=== PATIENT | female | born 1995 | race Asian ===

== ENCOUNTER 2016-11-29 04:41 | Emergency (ER) | payer OTHER ==
[~2016-11-29] VITALS: Ht 160 cm; Wt 51.3 kg
[~2016-11-29 04:41] MED LIST: [UNRECOGNIZED DRUG - CODE] EXT
[2016-11-29 04:46] VITALS: TEMP 36.8; Ht 160 cm; Wt 51.3 kg
[2016-11-29] MEDS ORDERED: ONDANSETRON INJ 2 MG/ML 2 ML VIAL IV STA (04:54)
[2016-11-29] MEDS ORDERED: MoRPHine SULFATE 4 MG/ML 1 ML CARP\\VIAL IV STA (04:54)
[2016-11-29] MEDS ORDERED: SODIUM CHLORIDE 0.9% 1000ML 1,000 ML IV STA ×2 (04:54)
[2016-11-29 05:15] LABS: BASO % 0.1 %; BASO ABS # 0.01 K/uL (0-0.2); COMPLETE YES; EOS % 0.4 %; HEMATOCRIT 40.5 % (37-47); IG% 0.1 %; LYMPH % 13.7 %; LYMPH ABS # 1.31 K/uL (1.2-3.4); MEAN CELL VOLUME 84.7 fL (80-100); MEAN CORPUSCULAR HEMOGLOBIN 29.3 pg (25-34); MEAN CORPUSCULAR HGB CONC 34.6 g/dl (32-36); MEAN PLATELET VOLUME 10.3 fL (7.4-10.4); MONO % 4.1 %; NEUT % 81.6 %; PLATELET COUNT 342 K/uL (130-400); RED BLOOD COUNT 4.78 M/uL (4.2-5.4); WHITE BLOOD COUNT 9.56 K/uL (4.8-10.8)
[2016-11-29 05:34] LABS: BUN/CREATININE RATIO 16.7 (10-20); CALCIUM 9.1 mg/dl (8.5-10.1); CREATININE 0.89 mg/dl (0.60-1.20); POTASSIUM 3.5 mmol/L (3.5-5.1)
[2016-11-29 05:35] LABS: PREG INTERNAL NEGATIVE QC NEG CLEAR BACKGROUND; PREG INTERNAL POSITIVE QC POS CONTROL LINE
[2016-11-29 05:38] LABS: URINE APPEARANCE CLEAR (CLEAR); URINE COLOR DK YELLOW; URINE EPITHELIAL CELL AUTO >30 /lpf (0-5); URINE NITRITE POS (NEG); URINE PH 5.5 (4.5-7.5); URINE SPECIFIC GRAVITY 1.036 (1.000-1.030); UROBILINOGEN NEG (NEG); ZZUR CULT IF INDIC CLEAN CATCH YES
[2016-11-29 05:41] LABS: MANUAL MICROSCOPIC REQUIRED? NO; REVIEW REQ? NO
[2016-11-29 05:43] LABS: URINE BILIRUBIN NEG (NEG)
[2016-11-29] MEDS ORDERED: NITR-5 PO ×2 (06:13→21:59)
[2016-11-29] MEDS ORDERED: NITROFURANTOIN MONOHYDRATE 100 MG CAP PO ONE (06:15)
--- NOTE | 2016-11-29 06:56 | EMERGENCY ROOM VISIT NOTE ---
History First contact with patient: 04:48 Chief Complaint: NAUSEA Stated Complaint: NAUSEA,STOMACH ACHE Nursing Triage Summary: c/o abd pain and n/v. seen at [facility] wednesday dx with pid.went back on wednesday and dx with constipation. History of Present Illness The patient is a 20 year old female who presents to the Emergency Room with complaints of nausea, vomiting and left lower quadrant superpubic pain for the past 5 days that is steadily getting worse with urinary frequency and urgency. Patient had a pelvic exam by health services on Wednesday and was treated for possible PID which was negative for GC and chlamydia. Patient followed up on Wednesday and was told she is constipated. Patient states the pain has gotten steadily worse. She describes the pain as pain as aching, ranging in severity 7 out of 10. Movement makes it worse and nothing makes it better. Patient is in a monogamous relationship and does not feel at risk for STI's. Patient denies chest pain, dyspnea, fever, chills, dysuria, vaginal itching/ discharge, dyspareunia, back pain. Last menstrual cycle 2 weeks ago. Review of Systems See HPI for pertinent positives & negatives. A total of 10 systems reviewed and were otherwise negative. Past Medical/Surgical History Medical Problems: (1) No pertinent past medical history Family History Hypertension Social History Smoking Status: Never Smoker Smokeless Tobacco Use: No Alcohol Use: none Drug Use: none Marital Status: in relationship Occupation Status: [employer] student Current/Historical Medications Scheduled Nitrofurantoin Monohyd Macrocr (Macrobid), 100 MG PO BID Allergies Coded Allergies: No Known Allergies (Unverified , 12/01/15) Physical Exam Vital Signs Date Time Temp Pulse Resp B/P Pulse Ox O2 Delivery O2 Flow Rate FiO2 11/29/16 06:35 77 18 104/63 98 Room Air 11/29/16 05:00 Room Air 11/29/16 04:46 36.8 107 18 110/65 98 Room Air Physical Exam VITALS: Vitals are noted on the nurse's note and reviewed by myself. Vital signs stable. GENERAL: Pleasant female in obvious pain, in no acute distress, nondiaphoretic, well-developed well-nourished. SKIN: The skin was without rashes, erythema, edema, or bruising. There is no tenting of the skin. Capillary reflex less than 2 seconds. HEAD: Normocephalic atraumatic. EARS: External auditory canals clear, tympanic membranes pearly de santiago without erythema or effusion bilaterally. EYES: Pupils equal round and reactive to light and accommodation. Conjunctivae without injection, sclerae without icterus. Extraocular movements intact. NOSE: Patent, turbinates without inflammation or discharge. MOUTH: Mucous membranes moist. Pharynx without erythema or exudate. Uvula midline. Airway patent. Tongue does not deviate. NECK: Supple without nuchal rigidity. No lymphadenopathy. No thyromegaly. Cervical spine is nontender. No JVD. HEART: Regular rate and rhythm without murmurs gallops or rubs. LUNGS: Clear to auscultation bilaterally without wheezes, rales or rhonchi. No dullness to percussion. No retractions or accessory muscle use. ABDOMEN: Positive bowel sounds x 4. Normal tympanic percussion. Soft, tender to palpation left lower superpubic area, no CVA tenderness without masses or organomegaly. Sharif sign negative. No guarding or rebound tenderness. MUSCULOSKELETAL: No muscle atrophy, erythema, or edema noted. NEURO: Patient was alert and oriented to person place and time. Normal sensation to light and sharp touch. No focal neurological deficits. Medical Decision & Procedures Laboratory Results 11/29/16 05:03 Red Blood Count 4.78, Mean Corpuscular Volume 84.7, Mean Corpuscular Hemoglobin 29.3, Mean Corpuscular Hemoglobin Concent 34.6, Mean Platelet Volume 10.3, Neutrophils (%) (Auto) 81.6, Lymphocytes (%) (Auto) 13.7, Monocytes (%) (Auto) 4.1, Eosinophils (%) (Auto) 0.4, Basophils (%) (Auto) 0.1, Neutrophils # (Auto) 7.80, Lymphocytes # (Auto) 1.31, Monocytes # (Auto) 0.39, Eosinophils # (Auto) 0.04, Basophils # (Auto) 0.01 11/29/16 05:03 Test 11/29/16 05:03 11/29/16 05:25 White Blood Count 9.56 K/uL (4.8-10.8) Red Blood Count 4.78 M/uL (4.2-5.4) Hemoglobin 14.0 g/dL (12.0-16.0) Hematocrit 40.5 % (37-47) Mean Corpuscular Volume 84.7 fL (80-100) Mean Corpuscular Hemoglobin 29.3 pg (25-34) Mean Corpuscular Hemoglobin Concent 34.6 g/dl (32-36) Platelet Count 342 K/uL (130-400) Mean Platelet Volume 10.3 fL (7.4-10.4) Neutrophils (%) (Auto) 81.6 % Lymphocytes (%) (Auto) 13.7 % Monocytes (%) (Auto) 4.1 % Eosinophils (%) (Auto) 0.4 % Basophils (%) (Auto) 0.1 % Neutrophils # (Auto) 7.80 K/uL (1.4-6.5) Lymphocytes # (Auto) 1.31 K/uL (1.2-3.4) Monocytes # (Auto) 0.39 K/uL (0.11-0.59) Eosinophils # (Auto) 0.04 K/uL (0-0.5) Basophils # (Auto) 0.01 K/uL (0-0.2) RDW Standard Deviation 37.9 fL (36.4-46.3) RDW Coefficient of Variation 12.3 % (11.5-14.5) Immature Granulocyte % (Auto) 0.1 % Immature Granulocyte # (Auto) 0.01 K/uL (0.00-0.02) Nucleated RBC Absolute Count (auto) 0.02 K/uL (0-0) Nucleated Red Blood Cells % 0.2 % Anion Gap 12.0 mmol/L (3-11) Est Creatinine Clear Calc Drug Dose 81.0 ml/min Estimated GFR () 107.4 Estimated GFR (Non- 92.6 BUN/Creatinine Ratio 16.7 (10-20) Calcium Level 9.1 mg/dl (8.5-10.1) Total Bilirubin 0.4 mg/dl (0.2-1) Direct Bilirubin 0.1 mg/dl (0-0.2) Aspartate Amino Transf (AST/SGOT) 15 U/L (15-37) Alanine Aminotransferase (ALT/SGPT) 24 U/L (12-78) Alkaline Phosphatase 85 U/L (45-117) Total Protein 8.1 gm/dl (6.4-8.2) Albumin 4.1 gm/dl (3.4-5.0) Lipase 66 U/L (73-393) Human Chorionic Gonadotropin, Qual POS (NEG) Human Chorionic Gonadotropin, Quant 187 mIU/mL Urine Color DK YELLOW Urine Appearance CLEAR (CLEAR) Urine pH 5.5 (4.5-7.5) Urine Specific [place] 1.036 (1.000-1.030) Urine Protein TRACE (NEG) Urine Glucose (UA) NEG (NEG) Urine Ketones 3+ (NEG) Urine Occult Blood NEG (NEG) Urine Nitrite POS (NEG) Urine Bilirubin NEG (NEG) Urine Urobilinogen NEG (NEG) Urine Leukocyte Esterase SMALL (NEG) Urine WBC (Auto) 10-30 /hpf (0-5) Urine RBC (Auto) 10-30 /hpf (0-4) Urine Hyaline Casts (Auto) 1-5 /lpf (0-5) Urine Epithelial Cells (Auto) >30 /lpf (0-5) Urine Bacteria (Auto) 1+ (NEG) Medications Administered Medications (Trade) Dose Ordered Sig/Dominik Route Start Time Stop Time Status Last Admin Dose Admin Morphine Sulfate (MoRPHine SULFATE INJ) 4 mg NOW STAT IV 11/29/16 04:54 11/29/16 04:56 DC 11/29/16 05:11 4 MG Ondansetron HCl 4 mg 4 mg NOW STAT IV 11/29/16 04:54 11/29/16 04:56 DC 11/29/16 05:12 4 MG Sodium Chloride 1,000 ml @ 999 mls/hr Q1H1M STAT IV 11/29/16 04:54 11/29/16 05:54 DC 11/29/16 05:12 999 MLS/HR Sodium Chloride (Nss 1000ml) 1,000 ml @ 125 mls/hr Q8H STAT IV 11/29/16 04:54 11/29/16 12:53 11/29/16 04:54 125 MLS/HR Nitrofurantoin Macrocrystals (Macrobid Cap) 100 mg ONE ONCE PO 11/29/16 06:15 11/29/16 06:16 DC 11/29/16 06:24 100 MG ED Course Prior records/ancillary studies reviewed. Triage Nursing notes reviewed. Additional history obtained from boyfriend. The patient's history was concerning for left lower suprapubic abdominal pain. Differential diagnosis: Differential diagnosis includes salpingitis, , ectopic , incomplete , septic , ruptured ovarian cyst, ovarian torsion, Mittelschmerz, endometritis, dysmenorrhea, appendicitis, PID, and others. Physical examination findings: As above. ER treatment provided: IV fluids, morphine, Zofran FAST exam shows no free fluid per my interpretation On reassessment the patient felt better. Diagnostics interpreted by me: The labs revealed positive hCG. quant 187 Urine concerning for infection sent for culture Patient had a negative GC chlamydia a few days ago by health services Imaging studies: US PELVIC/ENDOVAG: The uterus is normal in size. The endometrium is normal in thickness. No evidence of ovarian torsion. Normal blood flow to both ovaries. Bilateral ovarian follicles. Complex, probable involuting corpus luteum or hemorrhagic cyst in the right ovary measures up to 1.6 cm. Physiologic free fluid is present in the pelvis. Radiologist: Bebeto Argueta MD I consulted OB, Dr. Wallace and recommends follow-up in clinic in 2-3 days. Exam and history seem consistent with UTI and positive . Patient was requesting information for the clinic. I informed her the closest one is in [place]. Patient was advised to stop the doxycycline and Flagyl as prescribed by health services. She is placed on Macrobid for UTI. Patient is well-appearing. She did not have acute abdomen on exam. She felt much better to be medicated as above. No CVA tenderness. She is well-appearing. She is advised not to take any medications until cleared by MARKETING STRATEGY MANAGER. She is advised to start taking a . She is advised follow-up with MARKETING STRATEGY MANAGER in a few days or here in the ER sooner for abdominal pain, fevers, vomiting, worsening signs or symptoms or as needed.By the evaluation outlined above emergent etiologies such as salpingitis, incomplete , septic , ruptured ovarian cyst, ovarian torsion, Mittelschmerz, endometritis, dysmenorrhea, appendicitis, PID, as well as others were deemed relatively unlikely. The pt informed about the findings as listed above. All questions were answered and pleased with the treatment. Return instructions were outlined and the patient was discharged in stable condition. Outpatient prescription management: macrobid Referral: The patient was referred to MARKETING STRATEGY MANAGER for follow-up in 2 to 3 days for a recheck of the current condition. Case reviewed with my attending Medical Decision As above Impression Primary Impression: UTI (urinary tract infection) Additional Impression: Departure Information Dispostion Home / Self-Care Condition GOOD Prescriptions Nitrofurantoin Monohyd Macrocr (Macrobid) 100 Mg Cap 100 MG PO BID for 7 Days, #14 CAP Prov: Petrona Matthews PA-C 11/29/16 Referrals No Doctor, Assigned (PCP) Patient Instructions My [facility] Additional Instructions Stop the Flagyl and doxycycline. This is unsafe with . Macrobid(macrodantin) 100mg: Take one pill twice daily for 7 days for your urine infection. All antibiotics can cause diarrhea. If this occurs and you feel worse or it does not resolve in 1-2 days follow up with your doctor or return to the Emergency Department as this could be signs of serious underlying problems. Any medication can cause an allergic reaction, stop the pills immediately and return to the ER for rash, hives, breathing difficulties, or swelling. Closest clinic is in [place]. Recommend that you start taking a which is [id number]. Acetaminophen(Tylenol) may be used for fever or pain. Use 500mg every six hours as needed. Avoid using more than 2000mg in a 24 hour period. Rest and drink plenty of fluids as tolerated. Continue current medications. Avoid strenuous activities and anything that worsens your pain. Resume normal activities once your symptoms resolve. Return to the ER immediately for worsening or persistent pelvic pain, abdominal pain, vomiting, fevers, chest pains, difficulty breathing, worsening of your condition, or as needed. Follow up with library monitor in 2-3 days for a recheck of your current condition. Call for an appointment. Problem Qualifiers Primary Impression: UTI (urinary tract infection) Urinary tract infection type: acute cystitis Hematuria presence: with hematuria Qualified Codes: N30.01 - Acute cystitis with hematuria Additional Impression: Weeks of gestation: less than 8 weeks Qualified Codes: Z3A.01 - Less than 8 weeks gestation of
[2016-11-29 07:10] VITALS: BP 104/63; PULSE 77; O2SAT 98
--- NOTE | 2016-11-29 07:11 | DIAGNOSTIC IMAGING REPORT ---
ULTRASOUND OF THE PELVIS CLINICAL HISTORY: Left pelvic pain. COMPARISON STUDY: No priors. TECHNIQUE: Real-time, grayscale, and color flow sonography of the pelvis is performed both transabdominally and endovaginally. Images are reviewed in the transverse and longitudinal planes. FINDINGS: Uterus: The uterus is normal in size and echotexture, measuring 6.8 x 3.1 x 5.0 cm. Endometrium: The endometrium is normal in appearance, and the endometrial stripe is top normal in thickness measuring up to 1.1 cm. Ovaries: The ovaries are normal in size and morphology. The right ovary measures 2.3 x 2.2 x 2.3 cm and the left ovary measures 2.6 x 2.5 x 2.6 cm. Bilateral ovarian follicles are identified. A 1.7 cm complex follicle in the right ovary likely represents hemorrhage. Normal Doppler waveforms are shown within both ovaries. Pelvis: There is a small volume of free fluid in the cul-de-sac. No concerning adnexal lesion is seen. IMPRESSION: 1. No acute sonographic abnormality is identified in the pelvis. 2. Bilateral ovarian follicles as above. A complex follicle is noted on the right. 3. There is free fluid in the cul-de-sac, likely within physiologic limits. Electronically signed by: Ashok Real M.D. 11/29/2016 7:09 AM Dictated Date/Time: 11/29/2016 7:08 AM
== END 2016-11-29 07:10 | disposition home or self-care (01) ==
LOC: C.EDB 04:42
DX: O23.31 Infections of other parts of urinary tract in pregnancy, first trimester (principal); N30.01 Acute cystitis with hematuria; Z3A.01 Less than 8 weeks gestation of pregnancy; Z82.49 Family history of ischemic heart disease and other diseases of the circulatory system

== ENCOUNTER 2016-11-29 21:07 | Emergency (ER) | payer OTHER ==
[~2016-11-29] VITALS: Ht 188 cm; Wt 50.5 kg
[~2016-11-29 21:07] MED LIST changes: +NITR-5 PO
[2016-11-29 21:15] VITALS: TEMP 36.9; Ht 188 cm; Wt 50.5 kg
[2016-11-29] MEDS ORDERED: ONDANSETRON INJ 2 MG/ML 2 ML VIAL IV STA ×2 (21:48→23:37)
[2016-11-29] MEDS ORDERED: SODIUM CHLORIDE 0.9% 1000ML 1,000 ML IV STA ×2 (21:48→23:23)
[2016-11-29] MEDS ORDERED: MoRPHine SULFATE 2 MG/ML CARP IV STA ×2 (21:48→23:37)
[2016-11-29] MEDS ORDERED: NITR-5 PO (21:59)
--- NOTE | 2016-11-29 22:14 | EMERGENCY ROOM VISIT NOTE ---
History First contact with patient: 21:25 Chief Complaint: NAUSEA Stated Complaint: NAUSEA Nursing Triage Summary: patient continues to have nausea and abdominal pain. she states she has been taking the antibiotics but the bladder pain has not improved. explained she has only been on the medication a few hours, and it is going to take a while to work. Plus she is and will be nauseated with that. unable to keep fluids down due to nausea. History of Present Illness The patient is a 20 year old female who presents to the Emergency Room with complaints of nausea and abdominal pain. The patient was seen here overnight. She was found to have a positive test. She had an ultrasound that suggested a hemorrhagic follicle. The patient states that she has severe abdominal pain. She states the pain comes in waves and is rated 9/10. She states she reports nausea and vomiting. She states she has scant vaginal bleeding. She denies any dysuria, urgency or frequency. She denies any pain in her chest or trouble breathing. The patient plans to follow-up with an clinic. She was also found to have urinary tract infection and was started on Macrobid. Review of Systems A 10 system review of systems was completed with positives and pertinent negatives listed in the HPI. Past Medical/Surgical History Medical Problems: (1) No pertinent past medical history Family History Hypertension Social History Smoking Status: Never Smoker Alcohol Use: none Drug Use: none Marital Status: in relationship Occupation Status: [employer] student Current/Historical Medications Scheduled Nitrofurantoin Monohyd Macrocr (Macrobid), 100 MG PO BID Allergies Coded Allergies: No Known Allergies (Unverified , 11/29/16) Physical Exam Vital Signs Date Time Temp Pulse Resp B/P Pulse Ox O2 Delivery O2 Flow Rate FiO2 11/29/16 23:50 62 16 122/68 98 Room Air 11/29/16 22:21 67 16 99 Room Air 11/29/16 21:15 36.9 85 20 104/67 96 Room Air Physical Exam VITALS: Vitals are noted on the nurse's note and reviewed by myself. Vital signs stable. Patient is afebrile. GENERAL: This is a 20-year-old female who appears to be in pain, in no acute distress, nondiaphoretic, well-developed well-nourished. SKIN: The skin was without rashes, erythema, edema, or bruising. There is no tenting of the skin. Capillary reflex less than 2 seconds. HEAD: Normocephalic atraumatic. EARS: The external ears are normal in appearance. EYES: Pupils equal round and reactive to light and accommodation. Conjunctivae without injection, sclerae without icterus. Extraocular movements intact. NOSE: Patent, turbinates without inflammation or discharge. MOUTH: Mucous membranes moist. Tonsils are not enlarged. Pharynx without erythema or exudate. Uvula midline. Airway patent. Tongue does not deviate. NECK: Supple without nuchal rigidity. No JVD. HEART: Regular rate and rhythm without murmurs gallops or rubs. LUNGS: Clear to auscultation bilaterally without wheezes, rales or rhonchi. No retractions or accessory muscle use. ABDOMEN: Positive bowel sounds x 4. Soft, marked lower abdominal tenderness, particularly left lower quadrant tenderness, without masses or organomegaly. : The external genitalia is normal in appearance. There is no obvious vaginal bleeding. There is a moderate amount of white vaginal discharge. There is no significant cervicitis. There is no cervical motion tenderness, adnexal mass or adnexal tenderness. MUSCULOSKELETAL: No muscle atrophy, erythema, or edema noted. Full range of motion in all extremities. Normal gait. Strength 5/5 throughout. NEURO: Patient was alert and oriented to person place and time. No focal neurological deficits. Medical Decision & Procedures ER Provider Diagnostic Interpretation: A renal ultrasound was obtained and read by stat read There is a small to moderate amount of free fluid in the pelvic cul-de-sac. There is no adnexal mass on the limited assessment The kidneys are without stone, mass or hydronephrosis The bladder is unremarkable Laboratory Results 11/29/16 22:00 Red Blood Count 4.45, Mean Corpuscular Volume 84.3, Mean Corpuscular Hemoglobin 28.3, Mean Corpuscular Hemoglobin Concent 33.6, Mean Platelet Volume 10.0, Neutrophils (%) (Auto) 79.0, Lymphocytes (%) (Auto) 15.0, Monocytes (%) (Auto) 3.9, Eosinophils (%) (Auto) 1.8, Basophils (%) (Auto) 0.1, Neutrophils # (Auto) 7.79, Lymphocytes # (Auto) 1.48, Monocytes # (Auto) 0.38, Eosinophils # (Auto) 0.18, Basophils # (Auto) 0.01 11/29/16 22:00 Test 11/29/16 22:00 11/29/16 23:50 11/30/16 00:00 White Blood Count 9.86 K/uL (4.8-10.8) Red Blood Count 4.45 M/uL (4.2-5.4) Hemoglobin 12.6 g/dL (12.0-16.0) Hematocrit 37.5 % (37-47) Mean Corpuscular Volume 84.3 fL (80-100) Mean Corpuscular Hemoglobin 28.3 pg (25-34) Mean Corpuscular Hemoglobin Concent 33.6 g/dl (32-36) Platelet Count 300 K/uL (130-400) Mean Platelet Volume 10.0 fL (7.4-10.4) Neutrophils (%) (Auto) 79.0 % Lymphocytes (%) (Auto) 15.0 % Monocytes (%) (Auto) 3.9 % Eosinophils (%) (Auto) 1.8 % Basophils (%) (Auto) 0.1 % Neutrophils # (Auto) 7.79 K/uL (1.4-6.5) Lymphocytes # (Auto) 1.48 K/uL (1.2-3.4) Monocytes # (Auto) 0.38 K/uL (0.11-0.59) Eosinophils # (Auto) 0.18 K/uL (0-0.5) Basophils # (Auto) 0.01 K/uL (0-0.2) RDW Standard Deviation 37.9 fL (36.4-46.3) RDW Coefficient of Variation 12.4 % (11.5-14.5) Immature Granulocyte % (Auto) 0.2 % Immature Granulocyte # (Auto) 0.02 K/uL (0.00-0.02) Urine WBC (Auto) 1-5 /hpf (0-5) Urine RBC (Auto) 5-10 /hpf (0-4) Urine Hyaline Casts (Auto) 1-5 /lpf (0-5) Urine Epithelial Cells (Auto) >30 /lpf (0-5) Urine Bacteria (Auto) NEG (NEG) Anion Gap 10.0 mmol/L (3-11) Est Creatinine Clear Calc Drug Dose 95.9 ml/min Estimated GFR () 134.2 Estimated GFR (Non- 115.8 BUN/Creatinine Ratio 14.5 (10-20) Calcium Level 8.5 mg/dl (8.5-10.1) Total Bilirubin 0.3 mg/dl (0.2-1) Aspartate Amino Transf (AST/SGOT) 15 U/L (15-37) Alanine Aminotransferase (ALT/SGPT) 18 U/L (12-78) Alkaline Phosphatase 73 U/L (45-117) Total Protein 7.0 gm/dl (6.4-8.2) Albumin 3.6 gm/dl (3.4-5.0) Globulin 3.4 gm/dl (2.5-4.0) Albumin/Globulin Ratio 1.1 (0.9-2) Human Chorionic Gonadotropin, Quant 170 mIU/mL Date/Time Source Procedure Growth Status 11/29/16 23:50 Vaginal Swab Trichomonas Preparation - Final Complete Medications Administered Medications (Trade) Dose Ordered Sig/Dominik Route Start Time Stop Time Status Last Admin Dose Admin Sodium Chloride (Nss 1000ml) 1,000 ml @ 999 mls/hr Q1H1M STAT IV 11/29/16 21:48 11/29/16 22:48 DC 11/29/16 22:12 999 MLS/HR Ondansetron HCl (Zofran Inj) 4 mg NOW STAT IV 11/29/16 21:48 11/29/16 21:51 DC 11/29/16 22:11 4 MG Morphine Sulfate 2 mg 2 mg NOW STAT IV 11/29/16 21:48 11/29/16 21:51 DC 11/29/16 22:11 2 MG Sodium Chloride (Nss 1000ml) 1,000 ml @ 999 mls/hr Q1H1M STAT IV 11/29/16 23:23 11/30/16 00:23 DC 11/29/16 23:48 999 MLS/HR Morphine Sulfate (MoRPHine SULFATE INJ) 2 mg NOW STAT IV 11/29/16 23:37 11/29/16 23:38 DC 11/29/16 23:48 2 MG Ondansetron HCl (Zofran Inj) 4 mg NOW STAT IV 11/29/16 23:37 11/29/16 23:38 DC 11/29/16 23:48 4 MG ED Course The patient was seen and examined. Previous visits were reviewed. The patient does not have a fever or leukocytosis. She does not have any significant electrolyte abnormalities. Glucose was minimally elevated at 123. Quantitative hCG is 170. A clean-catch urinalysis suggests urinary tract infection versus contamination. Pelvic cultures, urine culture and a cath urinalysis are pending. Ultrasound was obtained as above The patient was hydrated with normal saline 2 L She was given a total of 8 mg IV Zofran She was given a total of 4 mg IV morphine The patient presents to the emergency department with left-sided abdominal pain , nausea and vomiting. The patient has recently been diagnosed with a urinary tract infection and . Her symptoms may be related to a pelvic or urinary tract infection. An ectopic has not completely been ruled out at this time. Her quantitative hCG is only 170. There is no obvious sign of kidney stone or hydronephrosis on ultrasound. The patient does not have a fever, leukocytosis or significant right-sided abdominal discomfort to suggest appendicitis or obvious acute abdomen. I discussed the case with Dr. Wallace. He recommends follow-up in the office tomorrow. She should continue the Macrobid. The case was discussed with Dr. Espinoza who agrees with the assessment and treatment plan. Medical Decision DIFFERENTIAL DIAGNOSIS: Hepatitis, cholecystitis, cholangitis, biliary colic, pancreatitis, pneumonia, subdiaphragmatic abscess, appendicitis, inguinal hernia , nephrolithiasis, inflammatory bowel disease, mesenteric adenitis, peptic ulcer disease, GERD, gastritis, pancreatitis, myocardial infarction, pericarditis, ruptured aortic aneurysm, appendicitis, gastroenteritis, bowel obstruction, splenic infarct, diverticulitis, mesenteric ischemia, metabolic, peritonitis, Pelvic inflammatory disease, ovarian cyst, ovarian torsion, ovarian rupture, , ectopic , endometriosis, endometritis, urinary tract infection, ruptured ovarian cyst, tubo-ovarian abscess, among others. [place] Drug Monitoring Program Search Results: patient reviewed within database, no issues identified Impression Primary Impression: Additional Impressions: Lower abdominal pain Urinary tract infection Departure Information Dispostion Home / Self-Care Condition GOOD Referrals No Doctor, Assigned (PCP) Octavio Wallace M.D. Patient Instructions [facility] Additional Instructions Continue the Macrobid antibiotic Zofran 1 tablet every 6-8 hours as needed for nausea and vomiting Brainard 1 tablet every 6 hours if needed for worse pain. Do not drink or drive while taking Brainard and do not take with Tylenol. Contact [facility] first thing in the morning. Tell them you were seen in the ED and I spoke with Dr. Wallace and he would like you to be seen in the office tomorrow. Return with worsening symptoms Problem Qualifiers Primary Impression: Additional Impressions:
[2016-11-29 22:17] LABS: BASO % 0.1 %; BASO ABS # 0.01 K/uL (0-0.2); COMPLETE YES; EOS % 1.8 %; HEMATOCRIT 37.5 % (37-47); IG% 0.2 %; LYMPH ABS # 1.48 K/uL (1.2-3.4); MEAN CELL VOLUME 84.3 fL (80-100); MEAN CORPUSCULAR HEMOGLOBIN 28.3 pg (25-34); MEAN CORPUSCULAR HGB CONC 33.6 g/dl (32-36); MONO % 3.9 %; PLATELET COUNT 300 K/uL (130-400); RED BLOOD COUNT 4.45 M/uL (4.2-5.4); WHITE BLOOD COUNT 9.86 K/uL (4.8-10.8)
[2016-11-29 22:27] LABS: URINE APPEARANCE CLEAR (CLEAR); URINE COLOR DK YELLOW; URINE EPITHELIAL CELL AUTO >30 /lpf (0-5); URINE NITRITE POS (NEG); URINE PH 5.5 (4.5-7.5); URINE SPECIFIC GRAVITY 1.025 (1.000-1.030); UROBILINOGEN NEG (NEG); ZZURINE CULT IF INDIC CATH NO
[2016-11-29 22:28] LABS: MANUAL MICROSCOPIC REQUIRED? NO; REVIEW REQ? NO; URINE BILIRUBIN 1+ (NEG)
[2016-11-29 22:30] LABS: BUN/CREATININE RATIO 14.5 (10-20); CALCIUM 8.5 mg/dl (8.5-10.1); CREATININE 0.74 mg/dl (0.60-1.20); POTASSIUM 3.7 mmol/L (3.5-5.1)
[2016-11-29 22:33] LABS: ALB/GLOB RATIO 1.1 (0.9-2)
[2016-11-30 00:30] LABS: URINE APPEARANCE CLEAR (CLEAR); URINE BILIRUBIN NEG (NEG); URINE COLOR YELLOW; URINE NITRITE NEG (NEG); URINE PH 5.5 (4.5-7.5); URINE SPECIFIC GRAVITY 1.013 (1.000-1.030); UROBILINOGEN NEG (NEG); ZZURINE CULT IF INDIC CATH NO
[2016-11-30] MEDS ORDERED: NORCO 5/325MG HOME PACK PO ONE (00:30)
[2016-11-30] MEDS ORDERED: ONDANSETRON HOME PACK 4MG OD TAB PO ONE (00:30)
[2016-11-30 00:37] LABS: MANUAL MICROSCOPIC REQUIRED? NO; REVIEW REQ? NO
[2016-11-30 01:04] VITALS: BP 112/72; PULSE 74; O2SAT 98
--- NOTE | 2016-11-30 06:23 | DIAGNOSTIC IMAGING REPORT ---
RENAL ULTRASOUND HISTORY: Flank pain left sided pain, hematuria COMPARISON: None. FINDINGS: Right kidney: Maximum dimension 9.8 cm. No evidence for hydronephrosis Normal corticomedullary differentiation and cortical thickness. Left kidney: Maximum dimension 9.5 cm. No evidence for hydronephrosis. Normal corticomedullary differentiation and cortical thickness. Bladder: No bladder wall thickening. The bilateral ureteral jets were identified. IMPRESSION: Normal renal ultrasound. Electronically signed by: Jonatan Jauregui M.D. 11/30/2016 6:22 AM Dictated Date/Time: 11/30/2016 6:21 AM
[2016-12-02 11:10] LABS: CHLAMYDIA TRACH RNA*** NOT DETECTED (NOT DETECTED); GC (NEIS GONORRHOEAE)RNA** NOT DETECTED (NOT DETECTED)
== END 2016-11-30 01:06 | disposition home or self-care (01) ==
LOC: C.EDB 21:07
DX: R10.30 Lower abdominal pain, unspecified (principal); O23.41 Unspecified infection of urinary tract in pregnancy, first trimester; Z3A.00 Weeks of gestation of pregnancy not specified; Z82.49 Family history of ischemic heart disease and other diseases of the circulatory system

== ENCOUNTER → 2016-12-08 | Outpatient (CLI) | payer OTHER ==
[~2016-12-08] MED LIST changes: +ACET-1256 PO; +AMOX500C3 PO; +CMP/10 PO; +ENOX1INJ9 SQ; +ENOX40IN SQ; +ONDA4TAB46 PO; +PROM25TA9 PO; +TYL325X PO; +ZFRI4 IV; -[UNRECOGNIZED DRUG - CODE] EXT
== END | disposition home or self-care (01) ==
LOC: C.LAB1850 13:39
PROVIDERS: ATTEND Obstetrics & Gynecology
DX: O20.0 Threatened abortion (principal)

== ENCOUNTER 2016-12-09 10:44 | Emergency (ER) | payer OTHER ==
[~2016-12-09] VITALS: Ht 162.6 cm; Wt 47.9 kg
[~2016-12-09 10:44] MED LIST changes: -ACET-1256 PO; -AMOX500C3 PO; -CMP/10 PO; -ENOX1INJ9 SQ; -ENOX40IN SQ; -ONDA4TAB46 PO; -PROM25TA9 PO; -TYL325X PO; -ZFRI4 IV
[2016-12-09 10:48] VITALS: TEMP 36.6; Ht 162.6 cm; Wt 47.9 kg
[2016-12-09] MEDS ORDERED: SODIUM CHLORIDE 0.9% 1000ML 1,000 ML IV ONE (11:00)
[2016-12-09] MEDS ORDERED: ONDANSETRON INJ 2 MG/ML 2 ML VIAL IV PRN (11:00)
--- NOTE | 2016-12-09 11:07 | EMERGENCY ROOM VISIT NOTE ---
History Report prepared by Pratik: Victoriano Cat Under the Supervision of: Dr. Bhaskar Sanders M.D. First contact with patient: 10:52 Chief Complaint: ABDOMINAL PAIN Stated Complaint: STOMACH History of Present Illness The patient is a 20 year old female who presents to the Emergency Room with complaints of constant abdominal pain starting last night around 1999. She currently rates her discomfort as a 6/10 in severity. The patient states that she was vomiting all last night after dinner. She denies having any urinary symptoms. The patient states that she is currently two weeks , and her last menstrual period was November 18. The patient's boyfriend states that the patient has been taking medicine for the pain. Source of History: patient, spouse/significant other Onset: 1999 last night Position: abdomen Symptom Intensity: 6/10 Timing: constant Associated Symptoms: + vomiting, No urinary symptoms Review of Systems All systems have been listed, reviewed, and are negative other than those previously mentioned. Please see Additional Medical History Sheet. Past Medical & Surgical Medical Problems: (1) No pertinent past medical history Family History Hypertension Social History Smoking Status: Never Smoker Alcohol Use: none Drug Use: none Marital Status: in relationship Occupation Status: [employer] student Current/Historical Medications Scheduled PRN Promethazine Hcl (Phenergan), 25 MG PO Q6H PRN for Nausea Allergies Coded Allergies: No Known Allergies (Unverified , 12/09/16) Physical Exam Vital Signs Date Time Temp Pulse Resp B/P Pulse Ox O2 Delivery O2 Flow Rate FiO2 12/09/16 14:32 80 16 115/67 97 12/09/16 13:27 82 18 118/65 97 Room Air 12/09/16 12:46 92 18 113/60 97 Room Air 12/09/16 10:48 36.6 92 18 117/56 97 Room Air Physical Exam GENERAL: Patient awake, alert, oriented x 3. Patient follows commands. Patient does not appear toxic. Patient is adequately hydrated and well- nourished. SKIN: No erythema, pallor, cyanosis or rash HEENT: Normal head, pupils equal, reactive to light and accommodation. Ears normal. Oral cavity and posterior pharynx appear dry. Neck: Without adenopathy , no neck vein distention. LUNGS: Clear to auscultation. No wheezes, no rales, no rhonchi. HEART: No murmurs. No gallops. No rubs ABDOMEN: Epigastric tenderness. No masses, no rebound, no hepatomegaly or splenomegaly. The patient has no pain below the umbilicus. EXTREMITIES: No signs of trauma or infection. No pedal or pretibial edema. No calf or thigh tenderness. NEUROLOGIC: Cranial nerves II-XII within normal limits. No gross motor sensory function deficits. Medical Decision & Procedures Laboratory Results 12/09/16 11:16 Red Blood Count 4.64, Mean Corpuscular Volume 84.3, Mean Corpuscular Hemoglobin 28.4, Mean Corpuscular Hemoglobin Concent 33.8, Mean Platelet Volume 10.3, Neutrophils (%) (Auto) 73.9, Lymphocytes (%) (Auto) 13.0, Monocytes (%) (Auto) 9.0, Eosinophils (%) (Auto) 3.6, Basophils (%) (Auto) 0.2, Neutrophils # (Auto) 7.39, Lymphocytes # (Auto) 1.30, Monocytes # (Auto) 0.90, Eosinophils # (Auto) 0.36, Basophils # (Auto) 0.02 12/09/16 11:16 Test 12/09/16 11:16 White Blood Count 10.00 K/uL (4.8-10.8) Red Blood Count 4.64 M/uL (4.2-5.4) Hemoglobin 13.2 g/dL (12.0-16.0) Hematocrit 39.1 % (37-47) Mean Corpuscular Volume 84.3 fL (80-100) Mean Corpuscular Hemoglobin 28.4 pg (25-34) Mean Corpuscular Hemoglobin Concent 33.8 g/dl (32-36) Platelet Count 274 K/uL (130-400) Mean Platelet Volume 10.3 fL (7.4-10.4) Neutrophils (%) (Auto) 73.9 % Lymphocytes (%) (Auto) 13.0 % Monocytes (%) (Auto) 9.0 % Eosinophils (%) (Auto) 3.6 % Basophils (%) (Auto) 0.2 % Neutrophils # (Auto) 7.39 K/uL (1.4-6.5) Lymphocytes # (Auto) 1.30 K/uL (1.2-3.4) Monocytes # (Auto) 0.90 K/uL (0.11-0.59) Eosinophils # (Auto) 0.36 K/uL (0-0.5) Basophils # (Auto) 0.02 K/uL (0-0.2) RDW Standard Deviation 38.8 fL (36.4-46.3) RDW Coefficient of Variation 12.7 % (11.5-14.5) Immature Granulocyte % (Auto) 0.3 % Immature Granulocyte # (Auto) 0.03 K/uL (0.00-0.02) Urine Color YELLOW Urine Appearance CLOUDY (CLEAR) Urine pH 5.5 (4.5-7.5) Urine Specific [place] >= 1.030 (1.000-1.030) Urine Protein 1+ (NEG) Urine Glucose (UA) NEG (NEG) Urine Ketones NEG (NEG) Urine Occult Blood NEG (NEG) Urine Nitrite NEG (NEG) Urine Bilirubin NEG (NEG) Urine Urobilinogen NEG (NEG) Urine Leukocyte Esterase NEG (NEG) Urine RBC 0-4 /hpf (0-4) Urine WBC 5-10 /hpf (0-5) Urine Epithelial Cells 10-20 /lpf (0-5) Urine Bacteria 2+ (NEG) Urine Mucus PRESENT (NONE PRSENT) Anion Gap 9.0 mmol/L (3-11) Est Creatinine Clear Calc Drug Dose 86.3 ml/min Estimated GFR () 126.0 Estimated GFR (Non- 108.7 BUN/Creatinine Ratio 15.2 (10-20) Calcium Level 9.1 mg/dl (8.5-10.1) Total Bilirubin 0.4 mg/dl (0.2-1) Aspartate Amino Transf (AST/SGOT) 14 U/L (15-37) Alanine Aminotransferase (ALT/SGPT) 21 U/L (12-78) Alkaline Phosphatase 92 U/L (45-117) Total Protein 8.0 gm/dl (6.4-8.2) Albumin 3.8 gm/dl (3.4-5.0) Globulin 4.2 gm/dl (2.5-4.0) Albumin/Globulin Ratio 0.9 (0.9-2) Lipase 73 U/L (73-393) Human Chorionic Gonadotropin, Quant 329 mIU/mL Laboratory results as stated above per my review. Medications Administered Medications (Trade) Dose Ordered Sig/Dominik Route Start Time Stop Time Status Last Admin Dose Admin Sodium Chloride (Nss 1000ml) 1,000 ml @ 1,000 mls/hr Q1H ONCE IV 12/09/16 11:00 12/09/16 11:59 DC 12/09/16 11:00 1,000 MLS/HR Ondansetron HCl (Zofran Inj) 4 mg PRN PRN IV 12/09/16 11:00 12/09/16 15:19 DC 12/09/16 11:25 4 MG Morphine Sulfate (MoRPHine SULFATE INJ) 2 mg Q1H PRN IV 12/09/16 12:15 12/09/16 15:19 DC 12/09/16 12:21 2 MG ED Course 1052: Past medical records reviewed. The patient was evaluated in room C1. A complete history and physical examination was performed. 1100: Zofran Inj 4mg IV, Sodium Chloride 1000 ml @ 1000 mls/hr IV 1215: Morphine Sulfate 2mg IV 1410: Upon reevaluation, the patient appeared to have improvement of her symptoms. I discussed today's findings with her. She verbalized agreement of the treatment plan. She was discharged home. 1428: I discussed the patient's case with Dr. Thomas, PLASTICS TOOLING ENGINEER. He is going to follow up with the patient. Medical Decision Nurses notes reviewed. Medical history sheet reviewed. Differential diagnosis includes but is not limited to: hyperemesis gravidum, dehydration, metabolic disorder, acute gastroenteritis, paptic/gastric ulcer disease, and pancreatitis. The patient is here with upper abdominal pain. She describes it as crampy like gas pain which comes and goes. The patient did improve with IV fluids and a very small dose of morphine plus Zofran. Labs were all evaluated. Please see above. Patient has no evidence of a urinary infection. Her white count is not elevated. She is not anemic. The patient is most likely around 2 weeks and I do not believe ultrasound is necessary at this time. The patient has no pain below the umbilicus. I do not believe that she has an ovarian cyst or ectopic. The patient is anticipating having an . The patient was strongly encouraged to follow-up with OB as soon as possible. Consults Time Called: 1424 Consulting Physician: Dr. Thomas, PLASTICS TOOLING ENGINEER Returned Call: [phone] I discussed the patient's case with Dr. Thomas, PLASTICS TOOLING ENGINEER. He is going to follow up with the patient. Impression Primary Impression: Epigastric pain Additional Impressions: Dehydration Scribe Attestation The scribe's documentation has been prepared under my direction and personally reviewed by me in its entirety. I confirm that the note above accurately reflects all work, treatment, procedures, and medical decision making performed by me. Departure Information Dispostion Home / Self-Care Prescriptions Promethazine Hcl (Phenergan) 25 Mg Tab 25 MG PO Q6H Y for Nausea, #10 TAB Prov: Bhaskar Sanders M.D. 12/09/16 Referrals No Doctor, Assigned (PCP) Forms HOME CARE DOCUMENTATION FORM, IMPORTANT VISIT INFORMATION Patient Instructions My [facility] Additional Instructions 25 mg of Phenergan every 6 hours as needed for nausea. Follow-up with PLASTICS TOOLING ENGINEER as soon as possible. Call today for an appointment. Drink extra fluids. Problem Qualifiers
[2016-12-09 11:35] LABS: BASO % 0.2 %; BASO ABS # 0.02 K/uL (0-0.2); COMPLETE YES; EOS % 3.6 %; HEMATOCRIT 39.1 % (37-47); IG% 0.3 %; MEAN CELL VOLUME 84.3 fL (80-100); MEAN CORPUSCULAR HEMOGLOBIN 28.4 pg (25-34); MEAN CORPUSCULAR HGB CONC 33.8 g/dl (32-36); MEAN PLATELET VOLUME 10.3 fL (7.4-10.4); NEUT % 73.9 %; PLATELET COUNT 274 K/uL (130-400); RED BLOOD COUNT 4.64 M/uL (4.2-5.4)
[2016-12-09 11:51] LABS: BUN/CREATININE RATIO 15.2 (10-20); CALCIUM 9.1 mg/dl (8.5-10.1); CREATININE 0.78 mg/dl (0.60-1.20); POTASSIUM 3.6 mmol/L (3.5-5.1)
[2016-12-09 11:54] LABS: ALB/GLOB RATIO 0.9 (0.9-2)
[2016-12-09 12:11] LABS: MANUAL MICROSCOPIC REQUIRED? YES; URINE APPEARANCE CLOUDY (CLEAR); URINE COLOR YELLOW; URINE NITRITE NEG (NEG); URINE PH 5.5 (4.5-7.5); URINE SPECIFIC GRAVITY >= 1.030 (1.000-1.030); UROBILINOGEN NEG (NEG)
[2016-12-09] MEDS ORDERED: MoRPHine SULFATE 4 MG/ML 1 ML CARP\\VIAL IV PRN (12:15)
[2016-12-09 12:21] LABS: REVIEW REQ? NO; URINE BILIRUBIN NEG (NEG)
[2016-12-09 12:25] LABS: URINE MUCUS PRESENT (NONE PRSENT)
[2016-12-09 12:27] LABS: URINE BACTERIA 2+ (NEG); URINE RBC 0-4 /hpf (0-4)
[2016-12-09 12:28] LABS: ZZUR CULT IF INDIC CLEAN CATCH YES
[2016-12-09] MEDS ORDERED: PROM25TA9 PO (14:13)
[2016-12-09 14:32] VITALS: BP 115/67; PULSE 80; O2SAT 97
== END 2016-12-09 14:33 | disposition home or self-care (01) ==
LOC: C.EDB 10:45 → C.EDC 14:33
DX: R10.13 Epigastric pain (principal); E86.0 Dehydration; Z32.01 Encounter for pregnancy test, result positive; Z82.49 Family history of ischemic heart disease and other diseases of the circulatory system

== ENCOUNTER 2016-12-10 04:40 | Emergency (ER) | payer OTHER ==
[~2016-12-10 04:40] MED LIST changes: -NITR-5 PO; +PROM25TA9 PO
[2016-12-10 04:44] VITALS: TEMP 37.1
[2016-12-10] MEDS ORDERED: ONDANSETRON 4MG OD TAB PO STA (04:55)
[2016-12-10] MEDS ORDERED: LIDOCAINE HCL 2% VISC SOLN 20 ML UDC ONE (04:58)
[2016-12-10] MEDS ORDERED: ALUMINUM/MAGNESIUM SUSP 30 ML UDC ONE (04:58)
[2016-12-10] MEDS ORDERED: GI COCKTAIL PO ONE (05:00)
[2016-12-10] MEDS ORDERED: ONDANSETRON HOME PACK 4MG OD TAB PO ONE (06:00)
[2016-12-10 06:07] VITALS: BP 125/68; PULSE 83; O2SAT 96
--- NOTE | 2016-12-10 07:21 | EMERGENCY ROOM VISIT NOTE ---
History First contact with patient: 04:48 Chief Complaint: ABDOMINAL PAIN Stated Complaint: STOMACH PAIN Nursing Triage Summary: abdominal pain History of Present Illness The patient is a 20 year old female who presents to the Emergency Room with complaints of persistent nausea and vomiting for the past 2 weeks. The patient has been seen 4 times in the past 10 days with this complaint. Her last visit was less than 24 hours ago where blood work was performed and was essentially normal. The patient is , roughly 2-3 weeks gestation. She states that she does not tend to keep the . At her visit earlier she was given a prescription for Phenergan. The patient did not brick picker this medication. She began to have abdominal discomfort and vomiting tonight, prompting her to return to the ER. She does not have fever or chills. No vaginal drainage, discharge, or bleeding. She rates her discomfort 8/10. Review of Systems More than 10 systems were reviewed and otherwise negative with the exception of history of present illness. Past Medical/Surgical History Medical Problems: (1) No pertinent past medical history Family History Hypertension Social History Smoking Status: Never Smoker Alcohol Use: none Drug Use: none Marital Status: in relationship Occupation Status: [employer] student Current/Historical Medications Scheduled PRN Promethazine Hcl (Phenergan), 25 MG PO Q6H PRN for Nausea Allergies Coded Allergies: No Known Allergies (Unverified , 12/09/16) Physical Exam Vital Signs Date Time Temp Pulse Resp B/P Pulse Ox O2 Delivery O2 Flow Rate FiO2 12/10/16 06:07 83 16 125/68 96 12/10/16 04:44 37.1 92 20 117/75 97 Room Air Pain Rating (0-10): 2.0 Physical Exam VITALS: Vitals are noted on the nurse's note and reviewed by myself. Vital signs stable. GENERAL: Well-developed, well-nourished, female, who is in no acute distress and resting comfortably. Patient is cooperative with the examination. HEAD: Normocephalic atraumatic. MOUTH: Mucous membranes moist. Tonsils are not enlarged. Pharynx without erythema, blood, or exudate. Uvula midline. Airway patent. NECK: Supple without nuchal rigidity. No lymphadenopathy. No thyromegaly. Cervical spine is nontender. HEART: Regular rate and rhythm without murmurs gallops or rubs. LUNGS: Clear to auscultation bilaterally without wheezes, rales or rhonchi. No retractions or accessory muscle use. ABDOMEN: Positive normal bowel sounds x 4. Soft, nontender, without masses or organomegaly. No guarding or rebound tenderness. Medical Decision & Procedures Medications Administered Medications (Trade) Dose Ordered Sig/Dominik Route Start Time Stop Time Status Last Admin Dose Admin Ondansetron HCl (Zofran Odt) 8 mg NOW STAT PO 12/10/16 04:55 12/10/16 04:56 DC 12/10/16 05:03 8 MG Al Hydroxide/Mg Hydroxide (Maalox Susp) 30 ml STK-MED ONCE .ROUTE 12/10/16 04:58 12/10/16 05:01 DC 12/10/16 05:04 30 ML Lidocaine HCl (Viscous Lidocaine 2% Soln) 20 ml STK-MED ONCE .ROUTE 12/10/16 04:58 12/10/16 05:02 DC 12/10/16 05:03 20 ML Ondansetron HCl (ZOFRAN ODT 4MG Home Pack) 1 homepack UD ONCE PO 12/10/16 06:00 12/10/16 06:01 DC 12/10/16 06:02 1 HOMEPACK ED Course Physical exam and history were performed. Nursing notes and EMR were reviewed. Patient appears to have nausea and vomiting in her first trimester . The patient has been seen multiple times in the emergency department in the past 10 days. The last visit was about 16 hours ago, where blood work was essentially normal. I questioned her regarding her follow-up, and she has not yet seen REVIEW CONSULTANT. She also has not picked up her prescription for Phenergan. I gave the patient a GI cocktail and Zofran ODT here in the department. She was able to tolerate oral hydration following this intervention. I had a lengthy discussion with the patient regarding her condition. I do suspect that her symptoms are related to the . The patient does not have a physical exam or symptoms that are consistent with acute abdomen at this time. The patient needs to follow with [facility] today and establish with REVIEW CONSULTANT. I will give her a home pack of Zofran until she can brick picker her prescriptions. The patient was otherwise invited back to the ER with any new, worsening, or concerning symptoms. The chart was completed utilizing Dragon Speech Voice Recognition Software. Grammatical errors, random word insertions, pronoun errors, and incomplete sentences are an occasional consequence of this system due to software limitations, ambient noise, and hardware issues. Any formal questions or concerns about the content, text, or information contained within the body of this dictation should be directly addressed to the provider for clarification. . Medical Decision Differential diagnosis: Etiologies such as gastroenteritis, food borne illness, infections, appendicitis , diverticulitis, inflammatory bowel disease, obstruction, GI bleed, biliary pathology, as well as others were entertained. Impression Primary Impression: Vomiting during Departure Information Dispostion Home / Self-Care Condition GOOD Forms HOME CARE DOCUMENTATION FORM, IMPORTANT VISIT INFORMATION Patient Instructions My [facility] Additional Instructions You were seen and evaluated today on an emergency basis only. This is not a substitute for, or an effort to provide, complete comprehensive medical care. It is not possible to recognize and treat all injuries or illnesses in a single emergency department visit. For this reason it is recommended that you followup with [facility] today for ongoing care and evaluation. It is highly recommended you follow-up with REVIEW CONSULTANT as previously instructed. Please begin Phenergan as previously prescribed. Drink plenty of fluids and remain well hydrated. Slow sips of fluids such as water or Gatorade over a long period of time will help. You are welcome to return to the emergency department anytime with new, worsening, or concerning symptoms.
== END 2016-12-10 06:05 | disposition home or self-care (01) ==
LOC: C.EDB 04:41
DX: O21.9 Vomiting of pregnancy, unspecified (principal); Z3A.01 Less than 8 weeks gestation of pregnancy; Z82.49 Family history of ischemic heart disease and other diseases of the circulatory system

== ENCOUNTER 2016-12-12 17:06 | Emergency (ER) | payer OTHER ==
[2016-12-12 17:08] VITALS: TEMP 37
[2016-12-12] MEDS ORDERED: SODIUM CHLORIDE 0.9% 1000ML 1,000 ML IV STA (17:35)
[2016-12-12] MEDS ORDERED: ONDANSETRON INJ 2 MG/ML 2 ML VIAL IV STA ×2 (17:35→19:17)
[2016-12-12 18:01] LABS: BASO % 0.1 %; BASO ABS # 0.02 K/uL (0-0.2); COMPLETE YES; EOS % 2.7 %; HEMATOCRIT 42.6 % (37-47); IG% 0.4 %; LYMPH % 11.4 %; LYMPH ABS # 1.92 K/uL (1.2-3.4); MEAN CELL VOLUME 81.8 fL (80-100); MEAN CORPUSCULAR HEMOGLOBIN 27.8 pg (25-34); MEAN PLATELET VOLUME 10.4 fL (7.4-10.4); MONO % 9.3 %; NEUT % 76.1 %; PLATELET COUNT 383 K/uL (130-400); RED BLOOD COUNT 5.21 M/uL (4.2-5.4)
[2016-12-12 18:10] LABS: ALT/SGPT 22 U/L (12-78); AST/SGOT 18 U/L (15-37); BLOOD UREA NITROGEN 23 mg/dl (7-18); BUN/CREATININE RATIO 25.4 (10-20); CALCIUM 9.2 mg/dl (8.5-10.1); CARBON DIOXIDE 30 mmol/L (21-32); CHLORIDE 93 mmol/L (98-107); CREATININE 0.91 mg/dl (0.60-1.20); GLUCOSE 123 mg/dl (70-99); POTASSIUM 3.7 mmol/L (3.5-5.1); SODIUM 133 mmol/L (136-145)
--- NOTE | 2016-12-12 18:10 | EMERGENCY ROOM VISIT NOTE ---
History Report prepared by Pratik: Mariam Conteh Under the Supervision of: Dr. Juanita Espinoza M.D. 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 The patient is . She states that she had unprotected sex with her boyfriend on November 22. Her LNMP was November 18. She has been to the ER recently for nausea and abdominal pain associated with her . She has been taking Zofran for her nausea and states that seems to be helping. Today her abdominal pain feels different than it has in the past. She rates her current pain as an 8/10 in severity. The patient states that she feels gassy. She has not had a bowel movement today and does not know when her last bowel movement was. She states that she has not been eating much. The patient notes some intermittent bleeding when she wipes after urinating. This started about 1 hour SALES OPERATIONS DIRECTOR. The patient has not followed-up with ob-service station helper yet. She intends to go to [facility] in [place] for an but has not made an appointment yet. She does not take any OCP. Source of History: patient Onset: SALES OPERATIONS DIRECTOR Position: abdomen Symptom Intensity: 8/10 Timing: worsening Modifying Factors (Relieving): anti-emetics Associated Symptoms: + nausea Review of Systems See HPI for pertinent positives & negatives. A total of 10 systems reviewed and were otherwise negative. Past Medical & Surgical Medical Problems: (1) No pertinent past medical history Family History Hypertension Social History Smoking Status: Never Smoker Alcohol Use: none Drug Use: none Marital Status: in relationship Housing Status: lives with roommate Occupation Status: [employer] student Current/Historical Medications Scheduled PRN Promethazine Hcl (Phenergan), 25 MG PO Q6H PRN for Nausea Allergies Coded Allergies: No Known Allergies (Unverified , 12/09/16) Physical Exam Vital Signs Date Time Temp Pulse Resp B/P Pulse Ox O2 Delivery O2 Flow Rate FiO2 12/12/16 23:20 97 18 134/88 98 Room Air 12/12/16 21:23 93 18 128/76 98 Room Air 12/12/16 19:24 97 18 126/87 97 Room Air 12/12/16 18:11 77 12/12/16 17:08 37.0 139 16 123/79 97 Room Air Physical Exam Vital signs reviewed. General: Well-appearing 20 year old female, in no significant distress. HEENT: No scleral icterus, PERRLA, neck supple. Atraumatic. Cardiovascular: Regular rate and rhythm, no extra sounds. Pulmonary: Clear to auscultation bilaterally, normal work of breathing. Abdomen: Soft, tender to the epigastric region, distended, positive bowel sounds. Musculoskeletal: Atraumatic, no peripheral edema. Neurologic: Patient awake alert and oriented x 3, full strength in all 4 extremities. Cranial nerves 2 through 12 grossly intact. Skin: Warm, dry, no rash Medical Decision & Procedures ER Provider Diagnostic Interpretation: Radiology results as stated below per my review and radiologist interpretation: ULTRASOUND OF THE PELVIS CLINICAL HISTORY: . Vaginal bleeding. COMPARISON STUDY: No priors. TECHNIQUE: Real-time, grayscale, and color flow sonography of the pelvis is performed both transabdominally and endovaginally. Images are reviewed in the transverse and longitudinal planes. FINDINGS: Uterus: The uterus is normal in size and echotexture, measuring 6.4 x 3.9 x 5.2 cm. Endometrium: The endometrium is normal in appearance, and the endometrial stripe is top normal in thickness measuring up to 1.1 cm. Ovaries: The ovaries are normal in size and morphology. The right ovary measures 2.4 x 2.2 x 2.4 cm and the left ovary measures 2.2 x 1.6 x 2.3 cm. A corpus luteum is suspected on the right. Normal Doppler waveforms are shown within both ovaries. Pelvis: There is a moderate volume of free fluid in the cul-de-sac. No concerning adnexal lesion is seen. Upper abdomen: Survey images of the abdomen show several hypoechoic hepatic lesions which measure up to 1.8 cm. IMPRESSION: 1. No intrauterine gestation is identified. This could simply reflect an intrauterine gestation that is too small to visualize or a missed . Although there is no concerning adnexal lesion identified, in the setting of a positive test without a confirmed intrauterine gestation ectopic would be impossible to exclude. Close clinical, laboratory, and sonographic follow-up is recommended. 2. There is a moderate volume of free fluid in the cul-de-sac. 3. The ovaries are normal in appearance noting a corpus luteum on the right. 4. There are several hypoechoic liver lesions. These are of indeterminant etiology and significance. Follow-up with a nonemergent liver protocol CT or MRI could be considered for definitive characterization. Electronically signed by: Ashok Real M.D. 12/12/2016 7:12 PM Dictated Date/Time: 12/12/2016 7:07 PM ULTRASOUND OF THE PELVIS CLINICAL HISTORY: . Vaginal bleeding. COMPARISON STUDY: No priors. TECHNIQUE: Real-time, grayscale, and color flow sonography of the pelvis is performed both transabdominally and endovaginally. Images are reviewed in the transverse and longitudinal planes. FINDINGS: Uterus: The uterus is normal in size and echotexture, measuring 6.4 x 3.9 x 5.2 cm. Endometrium: The endometrium is normal in appearance, and the endometrial stripe is top normal in thickness measuring up to 1.1 cm. Ovaries: The ovaries are normal in size and morphology. The right ovary measures 2.4 x 2.2 x 2.4 cm and the left ovary measures 2.2 x 1.6 x 2.3 cm. A corpus luteum is suspected on the right. Normal Doppler waveforms are shown within both ovaries. Pelvis: There is a moderate volume of free fluid in the cul-de-sac. No concerning adnexal lesion is seen. Upper abdomen: Survey images of the abdomen show several hypoechoic hepatic lesions which measure up to 1.8 cm. IMPRESSION: 1. No intrauterine gestation is identified. This could simply reflect an intrauterine gestation that is too small to visualize or a missed . Although there is no concerning adnexal lesion identified, in the setting of a positive test without a confirmed intrauterine gestation ectopic would be impossible to exclude. Close clinical, laboratory, and sonographic follow-up is recommended. 2. There is a moderate volume of free fluid in the cul-de-sac. 3. The ovaries are normal in appearance noting a corpus luteum on the right. 4. There are several hypoechoic liver lesions. These are of indeterminant etiology and significance. Follow-up with a nonemergent liver protocol CT or MRI could be considered for definitive characterization. Electronically signed by: Ashok Real M.D. 12/12/2016 7:12 PM Dictated Date/Time: 12/12/2016 7:07 PM KUB CLINICAL HISTORY: . Abdominal distention. FINDINGS: An AP supine abdominal radiograph is obtained. No prior studies are available for comparison at the time of dictation. The pelvis is shielded. There is gaseous distention of the right colon, with moderate gaseous distention of several small bowel loops. Left colon appears decompressed. No evidence of intraperitoneal free air is seen on this supine view. No abnormal abdominal calcifications are seen. The bony structures appear intact. IMPRESSION: There is significant gaseous distention of the colon to the level of the splenic flexure, as well as gaseous distention of several small bowel loops. The appearance suggests colonic obstruction. This is of indeterminant etiology. Electronically signed by: Ashok Real M.D. 12/12/2016 6:48 PM Dictated Date/Time: 12/12/2016 6:[address] SCAN OF THE ABDOMEN AND PELVIS COMBO LIVER PROTOCOL CLINICAL HISTORY: Liver lesions seen by ultrasound. Colonic obstruction. COMPARISON STUDY: Pelvic ultrasound dated 12/12/2016. TECHNIQUE: Before and following the IV administration of 115 cc of Optiray 320, CT scan of the abdomen and pelvis is performed from the lung bases to the proximal femora. The abdominal CT is performed utilizing the liver protocol. Images are reviewed in the axial, sagittal, and coronal planes. IV contrast was administered without complication. Automated dose control exposure was utilized. CT DOSE: Reported separately under the concurrently performed CT scan of the chest. FINDINGS: Lung bases: The heart is normal in size and without pericardial effusion. The lung bases are clear. Mild wall thickening is suggested in the distal esophagus. Liver: The contrast-enhanced liver is size and contour. There are numerous (greater than 20) low-attenuation hepatic lesions. These measure up to 2.0 cm and are consistent with metastatic disease. There is no intrahepatic biliary ductal dilatation. Hepatic and portal vasculature: Hepatic arterial anatomy is conventional. The hepatic veins, the portal veins, this appear mesenteric vein, and the splenic vein are patent. There is moderate narrowing of the main portal vein seen on image #117 due to mass effect from a caudate lobe lesion. Gallbladder: Unremarkable. Spleen: Normal in size and attenuation. Pancreas: Unremarkable. Adrenal glands: Unremarkable. Kidneys: No renal calculi are identified on the unenhanced series. The contrast enhanced kidneys are normal in size and without hydronephrosis. The kidneys enhance symmetrically. Abdominal vasculature: The abdominal aorta is normal in course and caliber. Bowel: There is an obstructing apple core lesion identified involving the distal descending colon, best seen on axial image #259. This measures approximate 6.5 cm in length. The proximal colon is distended and fluid-filled, with the cecum measuring up to 7.6 cm diameter. The small bowel loops are also distended and fluid-filled measuring up to 3.0 cm in diameter. The distal colon is decompressed. The appendix is mildly distended and filled with fluid as seen on image #337. There is no surrounding inflammatory change and this is likely related to colonic obstruction as opposed to acute appendicitis. Peritoneum: There is no intraperitoneal free. There is a small volume of abdominopelvic ascites. A 2.4 x 1.6 cm implant is seen in the right pelvis on image #418. There is a 1.1 cm implant in the left anterior pelvis seen on image #386. Lymphadenopathy: There is a 1.4 x 1.0 cm since the necrotic left periaortic node on image #208. A high left periaortic node on image #145 measures 1.1 x 0.9 cm. Pelvic viscera: The bladder is normal as visualized. The endometrial stripe appears thickened measuring up to 1.5 cm. There may be an additional implant on the right ovary. Ovarian follicles are noted. Skeletal structures: No lytic or blastic lesions are seen. IMPRESSION: 1. There is a large apple-core lesion identified in the distal descending colon, typical in appearance for a large colon cancer. This measures over 6.5 cm in craniocaudal length. 2. The colonic mass causes high-grade colonic obstruction. 3. Findings are consistent with multifocal hepatic metastatic disease. 4. Metastatic retroperitoneal lymphadenopathy is identified. 5. There are metastatic peritoneal implants seen in the pelvis. 6. There is a small volume of abdominopelvic ascites. 7. The appendix is mildly distended and fluid-filled. There is no significant surrounding inflammation and this is likely related to colonic obstruction. Acute appendicitis is considered unlikely. 8. Mild wall thickening is identified in the distal esophagus. Cortical clinically for evidence of esophagitis. 9. Additional findings as above. Electronically signed by: Ashok Real M.D. 12/12/2016 9:49 PM Dictated Date/Time: 12/12/2016 9:[address] SCAN OF THE CHEST WITH IV CONTRAST CLINICAL HISTORY: Hepatic masses. COMPARISON STUDY: No priors. TECHNIQUE: Following the IV administration of 115 cc of Optiray 320, CT scan of the thorax was performed from the thoracic inlet to the upper abdomen. Images are reviewed in the axial, sagittal, and coronal planes. IV contrast was administered without complication. CT DOSE: 778.53 mGy.cm FINDINGS: Thyroid: Imaged portions of the thyroid gland are normal in size and attenuation. Thoracic aorta: The thoracic aorta is normal in caliber and demonstrates standard 3-vessel arch anatomy. No dissection is seen. Pulmonary vasculature: The pulmonary trunk is normal in caliber. There are no filling defects identified in the central pulmonary vessels to indicate pulmonary embolus. Note that this examination was not protocoled for evaluation of the pulmonary arteries. Heart: The heart is normal in size and configuration, and without pericardial effusion. Lungs and pleural spaces: The lungs and pleural spaces are clear. Mediastinum: There is no mediastinal lymphadenopathy. Maricarmen: Clear. Axillae: There is no axillary lymphadenopathy. Upper abdomen: There are numerous (greater than 20) low-attenuation hepatic mass lesions. These measure up to 2.0 cm. Partially visualized upper abdominal viscera is otherwise within normal limits. Skeletal structures: No lytic or blastic bony lesions are seen. IMPRESSION: 1. The lungs are clear. 2. Findings are consistent with multifocal hepatic metastatic disease. See report of abdominal CT performed concurrently for detailed intra-abdominal findings. 3. There is no evidence of intrathoracic metastatic disease. Electronically signed by: Ashok Real M.D. 12/12/2016 9:33 PM Dictated Date/Time: 12/12/2016 9:30 PM Laboratory Results 12/12/16 17:30 Red Blood Count 5.21, Mean Corpuscular Volume 81.8, Mean Corpuscular Hemoglobin 27.8, Mean Corpuscular Hemoglobin Concent 34.0, Mean Platelet Volume 10.4, Neutrophils (%) (Auto) 76.1, Lymphocytes (%) (Auto) 11.4, Monocytes (%) (Auto) 9.3, Eosinophils (%) (Auto) 2.7, Basophils (%) (Auto) 0.1, Neutrophils # (Auto) 12.76, Lymphocytes # (Auto) 1.92, Monocytes # (Auto) 1.57, Eosinophils # (Auto) 0.46, Basophils # (Auto) 0.02 12/12/16 17:30 Test 12/12/16 17:30 12/12/16 22:39 White Blood Count 16.80 K/uL (4.8-10.8) Red Blood Count 5.21 M/uL (4.2-5.4) Hemoglobin 14.5 g/dL (12.0-16.0) Hematocrit 42.6 % (37-47) Mean Corpuscular Volume 81.8 fL (80-100) Mean Corpuscular Hemoglobin 27.8 pg (25-34) Mean Corpuscular Hemoglobin Concent 34.0 g/dl (32-36) Platelet Count 383 K/uL (130-400) Mean Platelet Volume 10.4 fL (7.4-10.4) Neutrophils (%) (Auto) 76.1 % Lymphocytes (%) (Auto) 11.4 % Monocytes (%) (Auto) 9.3 % Eosinophils (%) (Auto) 2.7 % Basophils (%) (Auto) 0.1 % Neutrophils # (Auto) 12.76 K/uL (1.4-6.5) Lymphocytes # (Auto) 1.92 K/uL (1.2-3.4) Monocytes # (Auto) 1.57 K/uL (0.11-0.59) Eosinophils # (Auto) 0.46 K/uL (0-0.5) Basophils # (Auto) 0.02 K/uL (0-0.2) RDW Standard Deviation 37.7 fL (36.4-46.3) RDW Coefficient of Variation 12.6 % (11.5-14.5) Immature Granulocyte % (Auto) 0.4 % Immature Granulocyte # (Auto) 0.07 K/uL (0.00-0.02) Urine Color DK YELLOW Urine Appearance CLOUDY (CLEAR) Urine pH 5.5 (4.5-7.5) Urine Specific [place] 1.029 (1.000-1.030) Urine Protein TRACE (NEG) Urine Glucose (UA) NEG (NEG) Urine Ketones 1+ (NEG) Urine Occult Blood 3+ (NEG) Urine Nitrite NEG (NEG) Urine Bilirubin NEG (NEG) Urine Urobilinogen NEG (NEG) Urine Leukocyte Esterase MODERATE (NEG) Urine WBC (Auto) >30 /hpf (0-5) Urine RBC (Auto) >30 /hpf (0-4) Urine Hyaline Casts (Auto) 10-30 /lpf (0-5) Urine Epithelial Cells (Auto) >30 /lpf (0-5) Urine Bacteria (Auto) NEG (NEG) Anion Gap 10.0 mmol/L (3-11) Estimated GFR () 104.5 Estimated GFR (Non- 90.2 BUN/Creatinine Ratio 25.4 (10-20) Calcium Level 9.2 mg/dl (8.5-10.1) Total Bilirubin 0.7 mg/dl (0.2-1) Direct Bilirubin 0.2 mg/dl (0-0.2) Aspartate Amino Transf (AST/SGOT) 18 U/L (15-37) Alanine Aminotransferase (ALT/SGPT) 22 U/L (12-78) Alkaline Phosphatase 91 U/L (45-117) Total Protein 8.4 gm/dl (6.4-8.2) Albumin 4.1 gm/dl (3.4-5.0) Progesterone Level 2.64 ng/mL Human Chorionic Gonadotropin, Quant 424 mIU/mL Carcinoembryonic Antigen 6.4 ng/ml (0-2.5) Laboratory results per my review. Medications Administered Medications (Trade) Dose Ordered Sig/Dominik Route Start Time Stop Time Status Last Admin Dose Admin Sodium Chloride (Nss 1000ml) 1,000 ml @ 999 mls/hr Q1H1M STAT IV 12/12/16 17:35 12/12/16 18:35 DC 12/12/16 17:40 999 MLS/HR Ondansetron HCl (Zofran Inj) 4 mg NOW STAT IV 12/12/16 17:35 12/12/16 17:38 DC 12/12/16 18:09 4 MG Morphine Sulfate (MoRPHine SULFATE INJ) 4 mg NOW STAT IV 12/12/16 19:17 12/12/16 19:19 DC 12/12/16 19:26 4 MG Ondansetron HCl (Zofran Inj) 4 mg NOW STAT IV 12/12/16 19:17 12/12/16 19:19 DC 12/12/16 19:27 4 MG Morphine Sulfate 4 mg 4 mg STK-MED ONCE .ROUTE 12/12/16 21:36 12/12/16 21:39 DC 12/12/16 21:52 4 MG Dextrose/Sodium Chloride (D5W And 1/2nss) 1,000 ml @ 125 mls/hr Q8H IV 12/12/16 22:45 12/13/16 01:36 DC 12/12/16 22:59 125 MLS/HR ED Course 1725: Past medical records reviewed. The patient was evaluated in room A11B. A complete history and physical examination was performed. 1735: Zofran 4 mg IV, NSS 1000 ml @ 999 mls/hr IV 1912: I reassessed the patient and discussed her ultrasound results with her. She will be going for CT. 1916: Zofran 4 mg IV, Morphine sulfate 4 mg IV 2134: I reevaluated the patient and had a long discussion with her about the results of her CT scan. I answered all of her questions. 2135: Morphine Sulfate 4 mg IV 2150: I consulted with Dr. Siegel of the [facility]. We discussed the patient's case. 2199: I spoke with Dr. Skelton of GI regarding the patient's treatment plan. We discussed her options and he will review her case. 2221: I spoke with Dr. Skelton again at this time. After discussing the case, we agreed that the patient should be transferred for further management. 2226: I reassessed the patient at this time. She is and resting more comfortably. I discussed the results and treatment plan with the patient and her friends at the bedside. I answered all pertaining questions that they had. The patient expressed understanding and verbalized agreement. 2235: At this time I spoke with Dr. Bel Santacruz of colorectal surgery at [facility]. We discussed the patient's case and she has accepted the patient for transfer. 2245: Dextrose/Sodium Chloride 1000 ml @ 125 mls/hr IV Medical Decision Differential diagnosis: Etiologies such as appendicitis, diverticulitis, PUD, biliary pathology, UTI, pancreatitis, obstruction, mesenteric ischemia, aortic pathology, infections, inflammatory bowel disease, renal colic, , ectopic , as well as others were entertained. This pt was evaluated and appeared to be in no distress. IV access was obtained and lab work was drawn. Pt was placed on the patient monitor. Pt was hydrated with NSS, given IV zofran and morphine for pain. Abd XR reveals a colonic obstruction. Pelvic ultrasound is as above, but no IUP or definite ectopic is visualized. There is FF seen and liver masses. HCG levels are not trending normally. CT CAP was performed and reveals multiple hepatic masses, retroperitoneal lymphadenopathy and a large obstructing colonic mass distally. GI was consulted and Dr Skelton expressed his concern that the pt would need a higher level of care for surgical vs GI management. The pt is considered to have a metastatic carcinoma likely colonic in origin. The patient was informed of the findings with 2 friends at the bedside. Given the pt's unfortunate situation, her parents are out of the country and the fact that she is a [employer] student, [facility], Dr Santacruz of colorectal surgery was contacted and has accepted the pt in transfer. Patient was transported by ground ALS. Consults Time Called: 2149 Consulting Physician: Dr. Siegel Returned Call: [address] Siegel of the [facility]. We discussed the patient's case. Additional Consults: Time Called: 2156 Consulted Physician: Dr. Skelton Returned Call: 2199 Additional Comments: I spoke with Dr. Skelton of GI regarding the patient's treatment plan. We discussed her options and he will review her case. Time Called: 2225 Consulted Physician: Dr. Santacruz Returned Call: 2234 Additional Comments: At this time I spoke with Dr. Bel Santacruz of colorectal surgery at [facility]. We discussed the patient's case and she has accepted the patient for transfer. Impression Primary Impression: Colonic obstruction Additional Impression: Metastatic cancer Scribe Attestation The scribe's documentation has been prepared under my direction and personally reviewed by me in its entirety. I confirm that the note above accurately reflects all work, treatment, procedures, and medical decision making performed by me. Departure Information Dispostion Transfer Acute Care Facility Referrals No Doctor, Assigned (PCP) Patient Instructions My [facility] Problem Qualifiers
[2016-12-12 18:13] LABS: ALKALINE PHOSPHATASE 91 U/L (45-117)
[2016-12-12 18:22] LABS: URINE APPEARANCE CLOUDY (CLEAR); URINE BILIRUBIN NEG (NEG); URINE COLOR DK YELLOW; URINE EPITHELIAL CELL AUTO >30 /lpf (0-5); URINE NITRITE NEG (NEG); URINE PH 5.5 (4.5-7.5); URINE SPECIFIC GRAVITY 1.029 (1.000-1.030); UROBILINOGEN NEG (NEG); ZZUR CULT IF INDIC CLEAN CATCH YES
[2016-12-12 18:23] LABS: MANUAL MICROSCOPIC REQUIRED? NO; REVIEW REQ? NO
--- NOTE | 2016-12-12 18:49 | DIAGNOSTIC IMAGING REPORT ---
KUB CLINICAL HISTORY: . Abdominal distention. FINDINGS: An AP supine abdominal radiograph is obtained. No prior studies are available for comparison at the time of dictation. The pelvis is shielded. There is gaseous distention of the right colon, with moderate gaseous distention of several small bowel loops. Left colon appears decompressed. No evidence of intraperitoneal free air is seen on this supine view. No abnormal abdominal calcifications are seen. The bony structures appear intact. IMPRESSION: There is significant gaseous distention of the colon to the level of the splenic flexure, as well as gaseous distention of several small bowel loops. The appearance suggests colonic obstruction. This is of indeterminant etiology. Electronically signed by: Ashok Real M.D. 12/12/2016 6:48 PM Dictated Date/Time: 12/12/2016 6:45 PM
--- NOTE | 2016-12-12 19:13 | DIAGNOSTIC IMAGING REPORT ---
ULTRASOUND OF THE PELVIS CLINICAL HISTORY: . Vaginal bleeding. COMPARISON STUDY: No priors. TECHNIQUE: Real-time, grayscale, and color flow sonography of the pelvis is performed both transabdominally and endovaginally. Images are reviewed in the transverse and longitudinal planes. FINDINGS: Uterus: The uterus is normal in size and echotexture, measuring 6.4 x 3.9 x 5.2 cm. Endometrium: The endometrium is normal in appearance, and the endometrial stripe is top normal in thickness measuring up to 1.1 cm. Ovaries: The ovaries are normal in size and morphology. The right ovary measures 2.4 x 2.2 x 2.4 cm and the left ovary measures 2.2 x 1.6 x 2.3 cm. A corpus luteum is suspected on the right. Normal Doppler waveforms are shown within both ovaries. Pelvis: There is a moderate volume of free fluid in the cul-de-sac. No concerning adnexal lesion is seen. Upper abdomen: Survey images of the abdomen show several hypoechoic hepatic lesions which measure up to 1.8 cm. IMPRESSION: 1. No intrauterine gestation is identified. This could simply reflect an intrauterine gestation that is too small to visualize or a missed . Although there is no concerning adnexal lesion identified, in the setting of a positive test without a confirmed intrauterine gestation ectopic would be impossible to exclude. Close clinical, laboratory, and sonographic follow-up is recommended. 2. There is a moderate volume of free fluid in the cul-de-sac. 3. The ovaries are normal in appearance noting a corpus luteum on the right. 4. There are several hypoechoic liver lesions. These are of indeterminant etiology and significance. Follow-up with a nonemergent liver protocol CT or MRI could be considered for definitive characterization. Electronically signed by: Ashok Real M.D. 12/12/2016 7:12 PM Dictated Date/Time: 12/12/2016 7:07 PM
[2016-12-12] MEDS ORDERED: MoRPHine SULFATE 4 MG/ML 1 ML CARP\\VIAL IV STA ×2 (19:17→21:58)
[2016-12-12] MEDS ORDERED: OPTIRAY 320 IV PRN (21:30)
--- NOTE | 2016-12-12 21:35 | DIAGNOSTIC IMAGING REPORT ---
CT SCAN OF THE CHEST WITH IV CONTRAST CLINICAL HISTORY: Hepatic masses. COMPARISON STUDY: No priors. TECHNIQUE: Following the IV administration of 115 cc of Optiray 320, CT scan of the thorax was performed from the thoracic inlet to the upper abdomen. Images are reviewed in the axial, sagittal, and coronal planes. IV contrast was administered without complication. CT DOSE: 778.53 mGy.cm FINDINGS: Thyroid: Imaged portions of the thyroid gland are normal in size and attenuation. Thoracic aorta: The thoracic aorta is normal in caliber and demonstrates standard 3-vessel arch anatomy. No dissection is seen. Pulmonary vasculature: The pulmonary trunk is normal in caliber. There are no filling defects identified in the central pulmonary vessels to indicate pulmonary embolus. Note that this examination was not protocoled for evaluation of the pulmonary arteries. Heart: The heart is normal in size and configuration, and without pericardial effusion. Lungs and pleural spaces: The lungs and pleural spaces are clear. Mediastinum: There is no mediastinal lymphadenopathy. Maricarmen: Clear. Axillae: There is no axillary lymphadenopathy. Upper abdomen: There are numerous (greater than 20) low-attenuation hepatic mass lesions. These measure up to 2.0 cm. Partially visualized upper abdominal viscera is otherwise within normal limits. Skeletal structures: No lytic or blastic bony lesions are seen. IMPRESSION: 1. The lungs are clear. 2. Findings are consistent with multifocal hepatic metastatic disease. See report of abdominal CT performed concurrently for detailed intra-abdominal findings. 3. There is no evidence of intrathoracic metastatic disease. Electronically signed by: Ashok Real M.D. 12/12/2016 9:33 PM Dictated Date/Time: 12/12/2016 9:30 PM
[2016-12-12] MEDS ORDERED: MoRPHine SULFATE 4 MG/ML 1 ML CARP\\VIAL ONE (21:36)
--- NOTE | 2016-12-12 21:51 | DIAGNOSTIC IMAGING REPORT ---
CT SCAN OF THE ABDOMEN AND PELVIS COMBO LIVER PROTOCOL CLINICAL HISTORY: Liver lesions seen by ultrasound. Colonic obstruction. COMPARISON STUDY: Pelvic ultrasound dated 12/12/2016. TECHNIQUE: Before and following the IV administration of 115 cc of Optiray 320, CT scan of the abdomen and pelvis is performed from the lung bases to the proximal femora. The abdominal CT is performed utilizing the liver protocol. Images are reviewed in the axial, sagittal, and coronal planes. IV contrast was administered without complication. Automated dose control exposure was utilized. CT DOSE: Reported separately under the concurrently performed CT scan of the chest. FINDINGS: Lung bases: The heart is normal in size and without pericardial effusion. The lung bases are clear. Mild wall thickening is suggested in the distal esophagus. Liver: The contrast-enhanced liver is size and contour. There are numerous (greater than 20) low-attenuation hepatic lesions. These measure up to 2.0 cm and are consistent with metastatic disease. There is no intrahepatic biliary ductal dilatation. Hepatic and portal vasculature: Hepatic arterial anatomy is conventional. The hepatic veins, the portal veins, this appear mesenteric vein, and the splenic vein are patent. There is moderate narrowing of the main portal vein seen on image #117 due to mass effect from a caudate lobe lesion. Gallbladder: Unremarkable. Spleen: Normal in size and attenuation. Pancreas: Unremarkable. Adrenal glands: Unremarkable. Kidneys: No renal calculi are identified on the unenhanced series. The contrast enhanced kidneys are normal in size and without hydronephrosis. The kidneys enhance symmetrically. Abdominal vasculature: The abdominal aorta is normal in course and caliber. Bowel: There is an obstructing apple core lesion identified involving the distal descending colon, best seen on axial image #259. This measures approximate 6.5 cm in length. The proximal colon is distended and fluid-filled, with the cecum measuring up to 7.6 cm diameter. The small bowel loops are also distended and fluid-filled measuring up to 3.0 cm in diameter. The distal colon is decompressed. The appendix is mildly distended and filled with fluid as seen on image #337. There is no surrounding inflammatory change and this is likely related to colonic obstruction as opposed to acute appendicitis. Peritoneum: There is no intraperitoneal free. There is a small volume of abdominopelvic ascites. A 2.4 x 1.6 cm implant is seen in the right pelvis on image #418. There is a 1.1 cm implant in the left anterior pelvis seen on image #386. Lymphadenopathy: There is a 1.4 x 1.0 cm since the necrotic left periaortic node on image #208. A high left periaortic node on image #145 measures 1.1 x 0.9 cm. Pelvic viscera: The bladder is normal as visualized. The endometrial stripe appears thickened measuring up to 1.5 cm. There may be an additional implant on the right ovary. Ovarian follicles are noted. Skeletal structures: No lytic or blastic lesions are seen. IMPRESSION: 1. There is a large apple-core lesion identified in the distal descending colon, typical in appearance for a large colon cancer. This measures over 6.5 cm in craniocaudal length. 2. The colonic mass causes high-grade colonic obstruction. 3. Findings are consistent with multifocal hepatic metastatic disease. 4. Metastatic retroperitoneal lymphadenopathy is identified. 5. There are metastatic peritoneal implants seen in the pelvis. 6. There is a small volume of abdominopelvic ascites. 7. The appendix is mildly distended and fluid-filled. There is no significant surrounding inflammation and this is likely related to colonic obstruction. Acute appendicitis is considered unlikely. 8. Mild wall thickening is identified in the distal esophagus. Cortical clinically for evidence of esophagitis. 9. Additional findings as above. Electronically signed by: Ashok Real M.D. 12/12/2016 9:49 PM Dictated Date/Time: 12/12/2016 9:34 PM
[2016-12-12] MEDS ORDERED: D5W AND 1/2NSS 1,000 ML IV SCH (22:45)
[2016-12-12 23:20] VITALS: BP 134/88; PULSE 97; O2SAT 98
[2016-12-15 11:33] LABS: AFP TUMOR MARKER SERUM 2.1 NG/ML (<6.1)
== END 2016-12-12 23:45 | disposition short-term general hospital (02) ==
LOC: C.EDB 17:07 → C.EDA 23:45
DX: O26.90 Pregnancy related conditions, unspecified, unspecified trimester (principal); K56.60 Unspecified intestinal obstruction; K63.9 Disease of intestine, unspecified; C78.7 Secondary malignant neoplasm of liver and intrahepatic bile duct; C78.6 Secondary malignant neoplasm of retroperitoneum and peritoneum; R18.8 Other ascites; K20.9 Esophagitis, unspecified

== ENCOUNTER 2017-01-24 20:26 | Emergency (ER) | payer OTHER ==
[~2017-01-24] VITALS: Ht 152.4 cm; Wt 44.3 kg
[2017-01-24 20:33] VITALS: Ht 152.4 cm; Wt 44.3 kg
[2017-01-24] MEDS ORDERED: ACETAMINOPHEN 500 MG TAB PO STA (20:59)
[2017-01-24] MEDS ORDERED: SODIUM CHLORIDE 0.9% 1000ML 1,000 ML IV STA (20:59)
--- NOTE | 2017-01-24 21:22 | DIAGNOSTIC IMAGING REPORT ---
CHEST ONE VIEW PORTABLE CLINICAL HISTORY: Fever, sepsis. Change in mental status. COMPARISON STUDY: CT scan the chest dated 12/12/2016 FINDINGS: The cardiac and mediastinal contours are normal. There is no evidence of focal pulmonary consolidation. There is no evidence of failure. No pleural effusions are visualized.[ There is a right internal jugular central venous catheter. IMPRESSION: No active disease in the chest. Electronically signed by: Sohan Ramos M.D. 01/24/2017 9:21 PM Dictated Date/Time: 01/24/2017 9:18 PM
[2017-01-24 21:49] LABS: HEMATOCRIT 28.7 % (37-47); MEAN CELL VOLUME 78.2 fL (80-100); MEAN CORPUSCULAR HEMOGLOBIN 25.9 pg (25-34); MEAN CORPUSCULAR HGB CONC 33.1 g/dl (32-36); PLATELET COUNT 223 K/uL (130-400); RED BLOOD COUNT 3.67 M/uL (4.2-5.4); WHITE BLOOD COUNT 9.28 K/uL (4.8-10.8)
[2017-01-24 22:05] LABS: ALT/SGPT 40 U/L (12-78); BLOOD UREA NITROGEN 9 mg/dl (7-18); BUN/CREATININE RATIO 20.2 (10-20); CARBON DIOXIDE 28 mmol/L (21-32); CHLORIDE 97 mmol/L (98-107); CREATININE 0.44 mg/dl (0.60-1.20); GLUCOSE 97 mg/dl (70-99); POTASSIUM 3.4 mmol/L (3.5-5.1); SODIUM 134 mmol/L (136-145)
[2017-01-24 22:08] LABS: ALKALINE PHOSPHATASE 215 U/L (45-117); AST/SGOT 30 U/L (15-37)
[2017-01-24 22:40] LABS: BASO ABS # 0.08 K/uL (0-0.2); BASOPHIL % 0.9 %; COMPLETE YES; DOHLE BODIES 1+; LYMPH ABS # 1.47 K/uL (1.2-3.4); LYMPHOCYTE % 15.8 %; META ABS # 0.41 K/uL (0-0); METAMYELOCYTE % 4.4 %; MICROCYTOSIS PRESENT; MYELOCYTE % 1.8 %; NEUTROPHILS % 68.3 %; TOXIC GRANULATION 3+
[2017-01-24 22:59] LABS: URINE APPEARANCE CLEAR (CLEAR); URINE BILIRUBIN NEG (NEG); URINE COLOR YELLOW; URINE EPITHELIAL CELL AUTO >30 /lpf (0-5); URINE NITRITE NEG (NEG); URINE SPECIFIC GRAVITY 1.017 (1.000-1.030); UROBILINOGEN NEG (NEG); ZZUR CULT IF INDIC CLEAN CATCH NO
[2017-01-24 23:00] LABS: MANUAL MICROSCOPIC REQUIRED? NO; REVIEW REQ? NO
--- NOTE | 2017-01-24 23:34 | EMERGENCY ROOM VISIT NOTE ---
History Report prepared by Pratik: Michael Murphy Under the Supervision of: Dr. Eyal Telles D.O. First contact with patient: 20:50 Chief Complaint: FEVER Stated Complaint: FEVER History of Present Illness The patient is a 21 year old female who presents to the Emergency Room with complaints of a sudden fever beginning two hours prior to arrival. She currently rates her discomfort as a 3/10 in severity. The patient states she has ovarian cancer which is being treated with chemotherapy. She notes her last session of chemotherapy was two days ago. The patient states she called a nurse at [facility], and they referred the patient to the ED for further evaluation with concern for infection. She notes she had a CT around a week ago, and there were no new tumors at that time. The patient states she had abdominal pain that resulted in a CT showing a tumor on her colon and ovary. She notes she not has a colostomy. The patient states she did not have her ovary removed. She notes she has abdominal pain, but it is not new. The patient denies taking any medication for her fever. She denies a runny nose, sorethroat, cough, diarrhea, and pain in her legs. Source of History: patient Onset: two hours [employer]PERIMENT[employer] F[employer]IC[employer] Position: other (global) Symptom Intensity: 3/10 Quality: other (fever) Timing: other (sudden) Associated Symptoms: + fevers, No cough, No diarrhea, No sorethroat Review of Systems See HPI for pertinent positives & negatives. A total of 10 systems reviewed and were otherwise negative. Past Medical & Surgical Medical Problems: (1) Colon cancer (2) No pertinent past medical history (3) Ovarian cancer Surgical Problems: (1) S/P colostomy Family History Hypertension Social History Smoking Status: Never Smoker Alcohol Use: none Drug Use: none Marital Status: in relationship Housing Status: lives with roommate Occupation Status: [employer] student Current/Historical Medications No Active Prescriptions or Reported Meds Allergies Coded Allergies: No Known Allergies (Unverified , 12/09/16) Physical Exam Vital Signs Date Time Temp Pulse Resp B/P Pulse Ox O2 Delivery O2 Flow Rate FiO2 01/24/17 22:31 37.6 107 24 103/55 97 Room Air 01/24/17 21:17 119 01/24/17 20:33 37.9 131 18 102/61 96 Room Air Physical Exam CONSTITUTIONAL/VITAL SIGNS: Reviewed / noted above. GENERAL: Non-toxic in appearance. INTEGUMENTARY: Warm, dry, and [place]. HEAD: Normocephalic. EYES: without scleral icterus or trauma. ENT/OROPHARYNX: clear and moist. LYMPHADENOPATHY/NECK: Is supple without lymphadenopathy or meningismus. RESPIRATORY: Lungs clear and equal. CARDIOVASCULAR: Regular rate and rhythm. GI/ABDOMEN: Colostomy in place. Colostomy is pink and healthy appearing with normal output. Tenderness in the left lower pelvic area which the patient reports is not new. Soft. No organomegaly or pulsatile mass. No rebound or guarding. Normal bowel sounds. EXTREMITIES: Warm and well perfused. BACK: No CVA tenderness. NEUROLOGICAL: Intact without focal deficits. PSYCHIATRIC: normal affect. MUSCULOSKELETAL: Normally developed with good muscle tone. Medical Decision & Procedures ER Provider Diagnostic Interpretation: X ray results and stated below per my interpretation and radiology interpretation. CHEST ONE VIEW PORTABLE CLINICAL HISTORY: Fever, sepsis. Change in mental status. COMPARISON STUDY: CT scan the chest dated 12/12/2016 FINDINGS: The cardiac and mediastinal contours are normal. There is no evidence of focal pulmonary consolidation. There is no evidence of failure. No pleural effusions are visualized.[ There is a right internal jugular central venous catheter. IMPRESSION: No active disease in the chest. Electronically signed by: Sohan Ramos M.D. 01/24/2017 9:21 PM Laboratory Results 01/24/17 21:38 Red Blood Count 3.67, Mean Corpuscular Volume 78.2, Mean Corpuscular Hemoglobin 25.9, Mean Corpuscular Hemoglobin Concent 33.1, Mean Platelet Volume 10.0 01/24/17 21:38 Test 01/24/17 21:14 01/24/17 21:38 01/24/17 22:45 Influenza Type A Antigen Neg for Influ A (NEG) Influenza Type B Antigen Neg for Influ B (NEG) White Blood Count 9.28 K/uL (4.8-10.8) Red Blood Count 3.67 M/uL (4.2-5.4) Hemoglobin 9.5 g/dL (12.0-16.0) Hematocrit 28.7 % (37-47) Mean Corpuscular Volume 78.2 fL (80-100) Mean Corpuscular Hemoglobin 25.9 pg (25-34) Mean Corpuscular Hemoglobin Concent 33.1 g/dl (32-36) Platelet Count 223 K/uL (130-400) Mean Platelet Volume 10.0 fL (7.4-10.4) RDW Standard Deviation 38.5 fL (36.4-46.3) RDW Coefficient of Variation 13.4 % (11.5-14.5) Nucleated RBC Absolute Count (auto) 0.02 K/uL (0-0) Neutrophils % (Manual) 68.3 % Lymphocytes % (Manual) 15.8 % Monocytes % (Manual) 8.8 % Basophils % (Manual) 0.9 % Metamyelocytes % 4.4 % Myelocytes % 1.8 % Nucleated Red Blood Cells % 0.3 % Neutrophils # (Manual) 6.34 K/uL (1.4-6.5) Total Absolute Neutrophils 6.34 K/uL (1.4-6.5) Lymphocytes # (Manual) 1.47 K/uL (1.2-3.4) Total Absolute Lymphocytes 1.47 K/uL (1.2-3.4) Monocytes # (Manual) 0.82 K/uL (0.11-0.59) Basophils # (Manual) 0.08 K/uL (0-0.2) Metamyelocytes # 0.41 K/uL (0-0) Myelocytes # 0.17 K/uL (0-0) Toxic Granulation 3+ Dohle Bodies 1+ Microcytosis PRESENT Anion Gap 9.0 mmol/L (3-11) Est Creatinine Clear Calc Drug Dose 140.3 ml/min Estimated GFR () > 150.0 Estimated GFR (Non- 143.3 BUN/Creatinine Ratio 20.2 (10-20) Calcium Level 8.0 mg/dl (8.5-10.1) Total Bilirubin 0.2 mg/dl (0.2-1) Direct Bilirubin < 0.1 mg/dl (0-0.2) Aspartate Amino Transf (AST/SGOT) 30 U/L (15-37) Alanine Aminotransferase (ALT/SGPT) 40 U/L (12-78) Alkaline Phosphatase 215 U/L (45-117) Total Protein 6.3 gm/dl (6.4-8.2) Albumin 2.4 gm/dl (3.4-5.0) Urine Color YELLOW Urine Appearance CLEAR (CLEAR) Urine pH 5.0 (4.5-7.5) Urine Specific [place] 1.017 (1.000-1.030) Urine Protein NEG (NEG) Urine Glucose (UA) NEG (NEG) Urine Ketones NEG (NEG) Urine Occult Blood NEG (NEG) Urine Nitrite NEG (NEG) Urine Bilirubin NEG (NEG) Urine Urobilinogen NEG (NEG) Urine Leukocyte Esterase TRACE (NEG) Urine WBC (Auto) 1-5 /hpf (0-5) Urine RBC (Auto) 0-4 /hpf (0-4) Urine Hyaline Casts (Auto) 5-10 /lpf (0-5) Urine Epithelial Cells (Auto) >30 /lpf (0-5) Urine Bacteria (Auto) NEG (NEG) Laboratory results as stated above per my review. Medications Administered Medications (Trade) Dose Ordered Sig/Dominik Route Start Time Stop Time Status Last Admin Dose Admin Sodium Chloride (Nss 1000ml) 1,000 ml @ 999 mls/hr Q1H1M STAT IV 01/24/17 20:59 01/24/17 21:59 DC 01/24/17 21:46 999 MLS/HR Acetaminophen (Tylenol Tab) 1,000 mg NOW STAT PO 01/24/17 20:59 01/24/17 21:01 DC 01/24/17 21:47 1,000 MG ED Course 2051: Previous medical records were reviewed. The patient was evaluated in room A4B. A complete history and physical examination was performed. 2058: Ordered Tylenol Tab 1,000 mg PO, Sodium Chloride 1,000 ml @ 999 mls/hr IV. 7: On reevaluation, the patient is doing well. I discussed the results and findings with the patient. She verbalized agreement of the treatment plan. The patient was discharged home. Medical Decision Differential includes viral illness, influenza, streptococcal pharyngitis, meningitis, pneumonia, sinusitis, UTI, pyelonephritis, otitis media. This is a 21-year-old female who presents to the ED with a chief complaint of fever. The patient is on chemotherapy for ovarian cancer. The patient states that she last received chemotherapy 2 days ago. She is having this done at [facility]. The patient states that she has been indicating chemotherapy for the past one month. She is status post partial colectomy and colostomy for a mass in her colon. She reports left ovarian cancer. The patient developed a fever a couple of hours ago. Temperature here was 37.9. Heart rate was 131. She contacted her doctor and was advised to come in for evaluation. She denies a sore throat or cough. No shortness of breath. No upper respiratory symptoms. No new abdominal pains. No urinary symptoms that are new. She does report urinary frequency which is chronic. She also reports chronic diarrhea. She denies any pains in her extremities. She denies any rashes. Her exam reveals a colostomy. She does have some tenderness in the left lower quadrant which she states is chronic. I did suggest a CT scan of the abdomen and pelvis but she states that she had one a week ago and declined the CT scan and states that that pain is chronic. Her colostomy appears normal without blood in the stool. Her intestines are pink. Lungs were clear. Throat is clear. No CVA tenderness. Extremities are without discomfort or swelling. CBC is unremarkable. Urine did not show infection. White blood cell count was normal. Complete metabolic panel was unremarkable. Flu swab was negative. Chest x-ray did not show acute process. The patient was told the results of the test. The patient was treated IV fluids and by mouth Tylenol. Her tachycardia improved some. Her temperature went down a little. She was told the results. She is felt to be stable for discharge. She was told to contact her oncologist tomorrow for further evaluation and care. Impression Primary Impression: Fever Additional Impression: Ovarian cancer Scribe Attestation The scribe's documentation has been prepared under my direction and personally reviewed by me in its entirety. I confirm that the note above accurately reflects all work, treatment, procedures, and medical decision making performed by me. Departure Information Dispostion Home / Self-Care Prescriptions No Active Prescriptions or Reported Meds Referrals No Doctor, Assigned (PCP) Forms HOME CARE DOCUMENTATION FORM, IMPORTANT VISIT INFORMATION Patient Instructions [facility] Additional Instructions Follow-up with your oncologist. Call tomorrow for further advice and appointment. Return for any concerns or worsening. Problem Qualifiers
[2017-01-24 23:40] VITALS: BP 109/55; PULSE 100; TEMP 37.1; O2SAT 100
== END 2017-01-24 23:40 | disposition home or self-care (01) ==
LOC: C.EDB 20:28 → C.EDA 23:40
DX: R50.9 Fever, unspecified (principal); C56.9 Malignant neoplasm of unspecified ovary; Z85.038 Personal history of other malignant neoplasm of large intestine; Z93.3 Colostomy status; Z82.49 Family history of ischemic heart disease and other diseases of the circulatory system

== ENCOUNTER 2017-01-26 22:57 | Inpatient (IN) | payer OTHER ==
[~2017-01-26] VITALS: Ht 160 cm; Wt 42.7 kg
[2017-01-26] MEDS ORDERED: SODIUM CHLORIDE 0.9% 1000ML 1,000 ML IV STA (23:24)
[2017-01-26] MEDS ORDERED: ACETAMINOPHEN 500 MG TAB PO STA (23:24)
[2017-01-26] MEDS ORDERED: PIPERACILLIN/TAZOBACTAM 4.5 GM/100ML D5W IV STA (23:24)
[2017-01-26] MEDS ORDERED: VANCOMYCIN INJ 1,100 MG in SODIUM CHLORIDE 0.9% 500ML 500 ML IV SCH (23:30)
--- NOTE | 2017-01-26 23:30 | EMERGENCY ROOM VISIT NOTE ---
History Report prepared by Pratik: Victoriano Cat Under the Supervision of: Dr. Devonte Porter M.D. First contact with patient: 23:16 Chief Complaint: FEVER Stated Complaint: FEVER- WAS CALLED BY ER TO RETURN History of Present Illness The patient is a 21 year old female who presents to the Emergency Room with complaints of a constant fever for the past few days. The patient has a history of cancer, and her last treatment of chemotherapy was five days ago, and she is going to have another treatment in a couple of days. The patient states that she was in the ED two days ago, and she was told that there was some bacteria in her blood. She states that she additionally has some abdominal pain and diarrhea. She denies any cough. The patient states that she has some Tylenol today for her fever around 1400. Source of History: patient Onset: the past few days Position: other (global) Quality: other (fever) Timing: constant Associated Symptoms: + abdominal pain, + diarrhea, No cough Review of Systems See HPI for pertinent positives & negatives. A total of 10 systems reviewed and were otherwise negative. Past Medical & Surgical Medical Problems: (1) Bacteremia (2) Colon cancer (3) Immunosuppressed due to chemotherapy (4) No pertinent past medical history (5) Ovarian cancer Surgical Problems: (1) S/P colostomy Family History Hypertension Social History Smoking Status: Never Smoker Alcohol Use: none Drug Use: none Marital Status: in relationship Housing Status: lives with roommate Occupation Status: [employer] student Current/Historical Medications No Active Prescriptions or Reported Meds Allergies Coded Allergies: No Known Allergies (Unverified , 01/26/17) Physical Exam Vital Signs Date Time Temp Pulse Resp B/P Pulse Ox O2 Delivery O2 Flow Rate FiO2 01/27/17 00:20 37.6 122 18 101/61 98 Room Air 01/26/17 23:01 37.6 129 20 103/59 97 Room Air Physical Exam GENERAL: Patient is well appearing and in minimal distress. HEENT: No acute trauma, normocephalic atraumatic, mucous membranes dry, no nasal congestion, no scleral icterus. NECK: No stridor, no adenopathy, no meningismus, trachea is midline. LUNGS: No dyspnea. Clear to auscultation and equal bilaterally. No wheeze, no rhonchi. HEART: Regular rate and rhythm. No murmurs, rubs, gallops appreciated. ABDOMEN: Vague left lower abdominal tenderness. Mid abdominal ostomy with normal stool outs. Soft, bowel sounds positive, no masses appreciated, no peritonitis. BACK: No midline tenderness, no CVA tenderness EXTREMITIES: Normal motion all extremities, no cyanosis, no edema. NEUROLOGIC: Alert and oriented, no acute motor or sensory deficits, no focal weakness, cranial nerves grossly intact. SKIN: No rash, no jaundice, no diaphoresis. Medical Decision & Procedures ER Provider Diagnostic Interpretation: X ray results are stated below per my interpretation: Chest: 1 view: No infiltrate, no effusion, normal cardiac border. Port in the right upper chest intact. Laboratory Results 01/26/17 23:30 Red Blood Count 3.39, Mean Corpuscular Volume 79.6, Mean Corpuscular Hemoglobin 26.5, Mean Corpuscular Hemoglobin Concent 33.3, Mean Platelet Volume 9.5 01/26/17 23:30 Test 01/26/17 23:30 01/26/17 23:36 White Blood Count 13.00 K/uL (4.8-10.8) Red Blood Count 3.39 M/uL (4.2-5.4) Hemoglobin 9.0 g/dL (12.0-16.0) Hematocrit 27.0 % (37-47) Mean Corpuscular Volume 79.6 fL (80-100) Mean Corpuscular Hemoglobin 26.5 pg (25-34) Mean Corpuscular Hemoglobin Concent 33.3 g/dl (32-36) Platelet Count 298 K/uL (130-400) Mean Platelet Volume 9.5 fL (7.4-10.4) RDW Standard Deviation 39.8 fL (36.4-46.3) RDW Coefficient of Variation 13.9 % (11.5-14.5) Neutrophils % (Manual) 76.5 % Lymphocytes % (Manual) 12.2 % Monocytes % (Manual) 6.1 % Metamyelocytes % 2.6 % Myelocytes % 2.6 % Neutrophils # (Manual) 9.95 K/uL (1.4-6.5) Total Absolute Neutrophils 9.95 K/uL (1.4-6.5) Lymphocytes # (Manual) 1.59 K/uL (1.2-3.4) Total Absolute Lymphocytes 1.59 K/uL (1.2-3.4) Monocytes # (Manual) 0.79 K/uL (0.11-0.59) Metamyelocytes # 0.34 K/uL (0-0) Myelocytes # 0.34 K/uL (0-0) Toxic Granulation 1+ Toxic Vacuolation OCCASIONAL Anion Gap 5.0 mmol/L (3-11) Estimated GFR () > 150.0 Estimated GFR (Non- 139.2 BUN/Creatinine Ratio 19.1 (10-20) Calcium Level 8.1 mg/dl (8.5-10.1) C-Reactive Protein 8.79 mg/dl (0-0.29) Procalcitonin 0.22 ng/ml (0-0.5) Bedside Lactic Acid Venous 1.72 mmol/L (0.90-1.70) Laboratory results as reviewed by me. Medications Administered Medications (Trade) Dose Ordered Sig/Dominik Route Start Time Stop Time Status Last Admin Dose Admin Piperacillin Sod/ Tazobactam Sod 4.5 gm 4.5 gm NOW STAT IV 01/26/17 23:24 01/26/17 23:27 DC 01/26/17 23:38 4.5 GM Sodium Chloride (Nss 1000ml) 1,000 ml @ 999 mls/hr Q1H1M STAT IV 01/26/17 23:24 01/27/17 00:24 DC 01/26/17 23:38 999 MLS/HR Acetaminophen 1000 mg 1,000 mg NOW STAT PO 01/26/17 23:24 01/26/17 23:28 DC 01/26/17 23:38 1,000 MG Vancomycin HCl/ Sodium Chloride (Vancomycin Inj/ Nss 250ml) 272 ml @ 125 mls/hr ONE STAT IV 01/26/17 23:55 01/27/17 02:05 DC 01/27/17 00:17 125 MLS/HR ED Course 2316: The patient was evaluated in room B12. A complete history and physical exam was performed. 2324: Tylenol Tab 1000mg PO, Sodium Chloride 1000 ml @ 999 mls/hr IV, Zosyn 4.5 gm IV 2355: Vancomycin HCl 1100mg/ Sodium Chloride 522 ml @ 200mls/hr IV 0020: I discussed the patient's case with Dr. Gavin. He is going to evaluate the patient for further treatment 0025: I reevaluated the patient, and she agrees with the treatment plan. 0136: I discussed the patient's case with Dr. Thakkar, [facility] OB /TEACHER OF THE VISUALLY IMPAIRED, and he states that he is comfortable with the patient staying here for further evaluation. Medical Decision Differential: Viral, Pharyngitis, Cellulitis, Pneumonia, Influenza, Meningitis, Sepsis, Bacteremia, UTI/Pyelonephritis, Endocrine, Toxicologic, amongst other pathologies entertained. 21 yr old female being treated for ovarian CA with metastasis arrives for evaluation of + blood cultures. Seen 2 days ago for fever and work-up benign but today one of cultures with Gram + bacilli. Returns stating she is still having fevers, fatigue and ill. Denies shob, uti, nor change in her chronic abdo pain. Reports recent CT abdo and declines having this done again. Given fluids/Tyl. Recent cultures with one off port and one peripheral. Not septic shock. Lactic acid not significantly elevated and BP OK. Abdomen without peritonitis. She has no evidence meningitis. No erythema of port area. Not neutropenic. Will plan to bring in here for empiric abx while awaiting further culture results. Consults Time Called: 001 Consulting Physician: Dr. Siegel Returned Call: 0020 I discussed the patient's case with Dr. Gavin. He is going to evaluate the patient for further treatment Additional Consults: Time Called: 0127 Consulted Physician: Dr. Thakkar, [facility] ASSISTANT DIRECTOR Returned Call: [phone] Additional Comments: I discussed the patient's case with Dr. Thakkar, [facility] ASSISTANT DIRECTOR, and he states that he is comfortable with the patient staying here for further evaluation. Impression Primary Impression: Bacteremia Scribe Attestation The scribe's documentation has been prepared under my direction and personally reviewed by me in its entirety. I confirm that the note above accurately reflects all work, treatment, procedures, and medical decision making performed by me. Departure Information Dispostion Being Evaluated By Hospitalist Prescriptions No Active Prescriptions or Reported Meds Referrals No Doctor, Assigned (PCP)
[2017-01-26] MEDS ORDERED: VANCOMYCIN INJ 1,100 MG in SODIUM CHLORIDE 0.9% 250ML 250 ML IV STA (23:55)
[2017-01-27] VITALS (12 sets, daily range): BP systolic 92–119; BP diastolic 42–63; PULSE 90–112; TEMP 36.8–37.9; O2SAT 95–100; Ht 160 cm; Wt 42.7 kg
[2017-01-27 00:05] LABS: MEAN CELL VOLUME 79.6 fL (80-100); MEAN CORPUSCULAR HEMOGLOBIN 26.5 pg (25-34); MEAN CORPUSCULAR HGB CONC 33.3 g/dl (32-36); MEAN PLATELET VOLUME 9.5 fL (7.4-10.4); PLATELET COUNT 298 K/uL (130-400); RED BLOOD COUNT 3.39 M/uL (4.2-5.4)
[2017-01-27 00:07] LABS: BLOOD UREA NITROGEN 9 mg/dl (7-18); BUN/CREATININE RATIO 19.1 (10-20); C-REACTIVE PROTEIN 8.79 mg/dl (0-0.29); CALCIUM 8.1 mg/dl (8.5-10.1); CARBON DIOXIDE 32 mmol/L (21-32); CHLORIDE 98 mmol/L (98-107); CREATININE 0.48 mg/dl (0.60-1.20); GLUCOSE 136 mg/dl (70-99); POTASSIUM 3.6 mmol/L (3.5-5.1); SODIUM 135 mmol/L (136-145)
[2017-01-27 00:31] LABS: VACUOLIZATION OCCASIONAL
[2017-01-27 00:33] LABS: COMPLETE YES; LYMPH ABS # 1.59 K/uL (1.2-3.4); LYMPHOCYTE % 12.2 %; META ABS # 0.34 K/uL (0-0); METAMYELOCYTE % 2.6 %; MYELOCYTE % 2.6 %; NEUTROPHILS % 76.5 %; TOXIC GRANULATION 1+
[2017-01-27] MEDS ORDERED: SODIUM CHLORIDE 0.9% 1000ML 1,000 ML IV STA (02:04)
--- NOTE | 2017-01-27 02:39 | History and Physical ---
History & Physical Date & Time of Service: January 27, 2017 at 02:37 Chief Complaint: Fever- Was Called By Er To Return Primary Care Physician: No Doctor, Assigned History of Present Illness Source: patient, hospital records Miss Murray is an unfortunate 21 year old female with metastatic ovarian cancer who present to the ER with fever for 2 days. She came to the ER with the same fever January 24 and had blood cultures taken. Subsequently 1/2 bottles grew positive bacilli as was called to return to the ER. She has continued to have persistent fever since that time. She has a port in place but reports no problems with this. She denies any cough, nasal congestion, sore throat, sinus pain, joint pain, muscle pain, chest pain, shortness of breath, change in bowel habit, urinary Sx , nausea or vomiting. No known sick contacts. She is a student at [employer]. Past Medical/Surgical History Medical Problems: (1) Colon cancer Status: Resolved (2) Ovarian cancer Status: Chronic Surgical Problems: (1) S/P colostomy Status: Resolved Family History Hypertension Social History Smoking Status: Never Smoker Drug Use: none Marital Status: in relationship Occupational Status: [employer] student Allergies Coded Allergies: No Known Allergies (Unverified , 01/26/17) Home Medications Scheduled Enoxaparin Sodium (Lovenox), 40 MG SQ Q12 Scheduled PRN Ondansetron Hcl (Zofran), 4 MG PO Q4 PRN for Nausea Review of Systems Constitutional: + fever, + chills Eyes: No worsening of vision ENT: No hearing loss Respiratory: No cough, No sputum, No wheezing, No shortness of breath Cardiovascular: No chest pain Abdomen: No pain, No nausea, No vomiting, No diarrhea, No constipation, No GI bleeding Musculoskeletal: No joint pain, No muscle pain Genitourinary - Female: No dysuria, No urinary frequency, No urinary incontinence, No urinary retention, No hematuria Neurologic: No weakness, No numbness/tingling, No vertigo Endocrine: No fatigue Hematologic / Lymphatic: No abnormal bleeding/bruising Integumentary: No rash, No itch Physical Exam Vital Signs Date Time Temp Pulse Resp B/P Pulse Ox O2 Delivery O2 Flow Rate FiO2 01/27/17 02:25 115 18 103/59 98 01/27/17 00:20 37.6 122 18 101/61 98 Room Air 01/26/17 23:01 37.6 129 20 103/59 97 Room Air General Appearance: WD/WN, no apparent distress Head: normocephalic, atraumatic Eyes: normal inspection, PERRL, EOMI Neck: supple, no adenopathy, thyroid normal, no JVD Respiratory/Chest: chest non-tender, lungs clear, normal breath sounds, no respiratory distress, no accessory muscle use, + pertinent finding (port site clean, dry and intact) Cardiovascular: regular rate, rhythm, no edema, no JVD, normal peripheral pulses, + systolic murmur (soft LUSB), + pertinent finding (no peripheral stigmata of endocarditis) Abdomen/GI: normal bowel sounds, non tender, soft Back: no CVA tenderness Extremities/Musculoskelatal: normal inspection, no calf tenderness, normal capillary refill, no pedal edema, normal range of motion Neurologic/Psych: automatic buffing wheel former II-XII nml as tested, no motor/sensory deficits, alert, normal mood/affect, normal reflexes, oriented x 3 Skin: normal color, warm/dry, no rash Diagnostics Laboratory Results Results Past 24 Hours Test 01/26/17 23:30 01/26/17 23:36 Range/Units White Blood Count 13.00 4.8-10.8 K/uL Red Blood Count 3.39 4.2-5.4 M/uL Hemoglobin 9.0 12.0-16.0 g/dL Hematocrit 27.0 37-47 % Mean Corpuscular Volume 79.6 80-100 fL Mean Corpuscular Hemoglobin 26.5 25-34 pg Mean Corpuscular Hemoglobin Concent 33.3 32-36 g/dl Platelet Count 298 130-400 K/uL Mean Platelet Volume 9.5 7.4-10.4 fL RDW Standard Deviation 39.8 36.4-46.3 fL RDW Coefficient of Variation 13.9 11.5-14.5 % Neutrophils % (Manual) 76.5 % Lymphocytes % (Manual) 12.2 % Monocytes % (Manual) 6.1 % Metamyelocytes % 2.6 % Myelocytes % 2.6 % Neutrophils # (Manual) 9.95 1.4-6.5 K/uL Total Absolute Neutrophils 9.95 1.4-6.5 K/uL Lymphocytes # (Manual) 1.59 1.2-3.4 K/uL Total Absolute Lymphocytes 1.59 1.2-3.4 K/uL Monocytes # (Manual) 0.79 0.11-0.59 K/uL Metamyelocytes # 0.34 0-0 K/uL Myelocytes # 0.34 0-0 K/uL Toxic Granulation 1+ Toxic Vacuolation OCCASIONAL Sodium Level 135 136-145 mmol/L Potassium Level 3.6 3.5-5.1 mmol/L Chloride Level 98 98-107 mmol/L Carbon Dioxide Level 32 21-32 mmol/L Anion Gap 5.0 3-11 mmol/L Blood Urea Nitrogen 9 7-18 mg/dl Creatinine 0.48 0.60-1.20 mg/dl Estimated GFR () > 150.0 Estimated GFR (Non- 139.2 BUN/Creatinine Ratio 19.1 10-20 Random Glucose 136 70-99 mg/dl Calcium Level 8.1 8.5-10.1 mg/dl C-Reactive Protein 8.79 0-0.29 mg/dl Procalcitonin 0.22 0-0.5 ng/ml Bedside Lactic Acid Venous 1.72 0.90-1.70 mmol/L Microbiology Results 01/26/17 Blood Culture, Received Pending 01/26/17 Blood Culture, Received Pending Diagnostic Radiology CHEST ONE VIEW PORTABLE CLINICAL HISTORY: Bacteremia COMPARISON STUDY: Chest radiograph January 24, 2017. FINDINGS: A right internal jugular [id number] is in place. Lung volumes are normal. Lungs are clear. There is no pneumothorax or pleural effusion. Cardiac size is normal. Mediastinal contours are normal. There is no evidence of pulmonary edema. IMPRESSION: No acute cardiopulmonary findings. Electronically signed by: Kirit Lock M.D. 01/27/2017 6:41 AM Dictated Date/Time: 01/27/2017 6:40 AM EKG Sinus tachycardia, 105 bpm, no ischemic changes Impression Assessment and Plan 21 year old with metastatic ovarian ca. ongoing chemotherapy with fever of unknown origin and bacteremia Fever of unknown origin with gram positive bacilli - unclear source of infection - echo - soft systolic murmur on examination - serial labs - IV fluids - urine culture - blood culture - from port and peripheral done in ER. Follow up previous blood cultures from ER - Continue Zosyn and vancomycin, add Levaquin. VTE Prophylaxis - Lovenox 40mg SQ daily Disposition - discussed with patient extensively regarding admission here vs. [facility] and she wishes to be admitted here for further workup Level of Care Telemetry Resuscitation Status FULL RESUSCITATION VTE Prophylaxis VTE Risk Assessment Done? Y/N: Yes Risk Level: Moderate Given or contraindicated: Enoxaparin (Lovenox)SQ Resident Tracking Resident Involvement: Resident Care Provided Care Provided: [facility] Assessment and Plan Attending Addendum: I have physically seen and examined this patient, have directed their medical care, have supervised the medical residents activities, and agree with the H&P as noted above, with the following changes: NONE
[2017-01-27] MEDS ORDERED: PATIENT'S HEIGHT AND/OR WEIGHT NEEDED SCH (03:45)
[2017-01-27] MEDS ORDERED: LEVOFLOXACIN / D5W 750 MG in PREMIXED IN D5W 150 ML IV SCH (04:00)
[2017-01-27] MEDS ORDERED: VANCOMYCIN CONSULT ACTIVE PRN (04:15)
[2017-01-27] MEDS ORDERED: PIPERACILL/TAZOBAC CONSULT ACTIVE PRN (04:15)
[2017-01-27 05:25] LABS: HEMATOCRIT 24.3 % (37-47); MEAN CELL VOLUME 79.2 fL (80-100); MEAN CORPUSCULAR HEMOGLOBIN 25.7 pg (25-34); MEAN CORPUSCULAR HGB CONC 32.5 g/dl (32-36); PLATELET COUNT 252 K/uL (130-400); RED BLOOD COUNT 3.07 M/uL (4.2-5.4); WHITE BLOOD COUNT 12.38 K/uL (4.8-10.8)
[2017-01-27 05:37] LABS: INR 1.1 (0.9-1.1); PARTIAL THROMBOPLASTIN RATIO 1.1
[2017-01-27 05:47] LABS: COMPLETE YES; LYMPH ABS # 1.19 K/uL (1.2-3.4); LYMPHOCYTE % 9.6 %; META ABS # 0.53 K/uL (0-0); METAMYELOCYTE % 4.3 %; MYELOCYTE % 1.7 %; NEUTROPHILS % 80.1 %; TOXIC GRANULATION 1+; VACUOLIZATION OCCASIONAL
[2017-01-27] MEDS ORDERED: PIPERACILL/TAZOBAC IV 3.375 GM in DEXTROSE 5% 100ML 100 ML IV SCH (06:00)
[2017-01-27 06:05] LABS: ALKALINE PHOSPHATASE 188 U/L (45-117); ALT/SGPT 32 U/L (12-78); AST/SGOT 17 U/L (15-37); BLOOD UREA NITROGEN 7 mg/dl (7-18); BUN/CREATININE RATIO 17.7 (10-20); CALCIUM 7.5 mg/dl (8.5-10.1); CARBON DIOXIDE 28 mmol/L (21-32); CHLORIDE 106 mmol/L (98-107); CREATININE 0.37 mg/dl (0.60-1.20); GLUCOSE 102 mg/dl (70-99); POTASSIUM 3.2 mmol/L (3.5-5.1); SODIUM 139 mmol/L (136-145)
--- NOTE | 2017-01-27 06:31 | Pharmacy Progress Note ---
Pharmacy Antibiotic Consult Date of Service: January 27, 2017. Pharmacy Dosing Scope Pharmacy is consulted to initiate Vancomycin IV dosing therapy, order appropriate labs and adjust drug dose/frequency. Subjective The patient is a 21 year old female admitted on January 27, 2017 at 02:00 with possible sepsis. The patient had presented to the ED on 01/24/17 with a fever and blood cultures were taken. One of the cultures grew GPC and she was summoned to the ER for admission and IV antibiotic therapy. Dr. Quarles chose Zosyn, Levaquin and Vancomycin as empiric therapy at this point until a source is pinpointed and more of work up can be done. She does have HX of cancer and an Aport in place. Objective Height (Feet): 5 Height (Inches): 3.00 Weight (Kilograms): 42.700 Lab Results (24hrs): Test 01/26/17 23:30 01/26/17 23:36 01/27/17 05:15 White Blood Count 13.00 K/uL (4.8-10.8) 12.38 K/uL (4.8-10.8) Red Blood Count 3.39 M/uL (4.2-5.4) 3.07 M/uL (4.2-5.4) Hemoglobin 9.0 g/dL (12.0-16.0) 7.9 g/dL (12.0-16.0) Hematocrit 27.0 % (37-47) 24.3 % (37-47) Mean Corpuscular Volume 79.6 fL (80-100) 79.2 fL (80-100) Mean Corpuscular Hemoglobin 26.5 pg (25-34) 25.7 pg (25-34) Mean Corpuscular Hemoglobin Concent 33.3 g/dl (32-36) 32.5 g/dl (32-36) Platelet Count 298 K/uL (130-400) 252 K/uL (130-400) Mean Platelet Volume 9.5 fL (7.4-10.4) 9.0 fL (7.4-10.4) RDW Standard Deviation 39.8 fL (36.4-46.3) 39.8 fL (36.4-46.3) RDW Coefficient of Variation 13.9 % (11.5-14.5) 13.9 % (11.5-14.5) Neutrophils % (Manual) 76.5 % 80.1 % Lymphocytes % (Manual) 12.2 % 9.6 % Monocytes % (Manual) 6.1 % 4.3 % Metamyelocytes % 2.6 % 4.3 % Myelocytes % 2.6 % 1.7 % Neutrophils # (Manual) 9.95 K/uL (1.4-6.5) 9.92 K/uL (1.4-6.5) Total Absolute Neutrophils 9.95 K/uL (1.4-6.5) 9.92 K/uL (1.4-6.5) Lymphocytes # (Manual) 1.59 K/uL (1.2-3.4) 1.19 K/uL (1.2-3.4) Total Absolute Lymphocytes 1.59 K/uL (1.2-3.4) 1.19 K/uL (1.2-3.4) Monocytes # (Manual) 0.79 K/uL (0.11-0.59) 0.53 K/uL (0.11-0.59) Metamyelocytes # 0.34 K/uL (0-0) 0.53 K/uL (0-0) Myelocytes # 0.34 K/uL (0-0) 0.21 K/uL (0-0) Toxic Granulation 1+ 1+ Toxic Vacuolation OCCASIONAL OCCASIONAL Sodium Level 135 mmol/L (136-145) 139 mmol/L (136-145) Potassium Level 3.6 mmol/L (3.5-5.1) 3.2 mmol/L (3.5-5.1) Chloride Level 98 mmol/L (98-107) 106 mmol/L (98-107) Carbon Dioxide Level 32 mmol/L (21-32) 28 mmol/L (21-32) Anion Gap 5.0 mmol/L (3-11) 5.0 mmol/L (3-11) Blood Urea Nitrogen 9 mg/dl (7-18) 7 mg/dl (7-18) Creatinine 0.48 mg/dl (0.60-1.20) 0.37 mg/dl (0.60-1.20) Estimated GFR () > 150.0 > 150.0 Estimated GFR (Non- 139.2 > 150.0 BUN/Creatinine Ratio 19.1 (10-20) 17.7 (10-20) Random Glucose 136 mg/dl (70-99) 102 mg/dl (70-99) Calcium Level 8.1 mg/dl (8.5-10.1) 7.5 mg/dl (8.5-10.1) C-Reactive Protein 8.79 mg/dl (0-0.29) Procalcitonin 0.22 ng/ml (0-0.5) Bedside Lactic Acid Venous 1.72 mmol/L (0.90-1.70) Prothrombin Time 12.0 SECONDS (9.0-12.0) Prothromb Time International Ratio 1.1 (0.9-1.1) Activated Partial Thromboplast Time 29.5 SECONDS (21.0-31.0) Partial Thromboplastin Ratio 1.1 Est Creatinine Clear Calc Drug Dose 160.8 ml/min Lactic Acid Level 1.0 mmol/L (0.4-2.0) Total Bilirubin 0.2 mg/dl (0.2-1) Direct Bilirubin < 0.1 mg/dl (0-0.2) Aspartate Amino Transf (AST/SGOT) 17 U/L (15-37) Alanine Aminotransferase (ALT/SGPT) 32 U/L (12-78) Alkaline Phosphatase 188 U/L (45-117) Total Protein 5.6 gm/dl (6.4-8.2) Albumin 1.9 gm/dl (3.4-5.0) Micro Results: one positive blood culture from 01/24/17 ED visit resulting in GPC Item Value Date Time Urine Culture Received 01/27/17 0315 Urine , Clean Catch Pending Blood Culture Received 01/26/17 2335 Blood Pending Blood Culture Received 01/26/17 2330 Blood Pending Recent Pertinent Medications Item Value Date Time Piperacillin Sod/ 115 ml @ 28.75 mls/hr 01/27/17 0600 Tazobactam Sod Q8H/IV 01/27/17 0541 3.375 gm/Dextrose Levofloxacin 750 150 ml @ 100 mls/hr 01/27/17 0400 mg/Prmx Q24H/IV 01/27/17 7266 Assessment & Plan Loading dose: Vancomycin 1100mg (25mg/kg) IV X 1 dose then: Vancomycin 700mg IV every 8 hours thereafter. I estimated her half life at just under 7 hours. I will check a trough level prior to 1000 dose on 01/28/17. Goal trough level estimate: between 15-20 mcg/mL. Pharmacy will continue to follow and will adjust dose/frequency as necessary. Thank you
--- NOTE | 2017-01-27 06:43 | DIAGNOSTIC IMAGING REPORT ---
CHEST ONE VIEW PORTABLE CLINICAL HISTORY: Bacteremia COMPARISON STUDY: Chest radiograph January 24, 2017. FINDINGS: A right internal jugular [id number] is in place. Lung volumes are normal. Lungs are clear. There is no pneumothorax or pleural effusion. Cardiac size is normal. Mediastinal contours are normal. There is no evidence of pulmonary edema. IMPRESSION: No acute cardiopulmonary findings. Electronically signed by: Kirit Lock M.D. 01/27/2017 6:41 AM Dictated Date/Time: 01/27/2017 6:40 AM
[2017-01-27] MEDS ORDERED: ONDANSETRON INJ 2 MG/ML 2 ML VIAL IV PRN (07:15)
--- NOTE | 2017-01-27 08:55 | ECHOCARDIOGRAM REPORT ---
*NOTICE TO RECEIVING LIBERTARIAN AGENCY This information is strictly Confidential and protected under [place] law. [place] law prohibits you from making any further disclosure of this information unless further disclosure is expressly permitted by the written consent of the person to whom it pertains or is authorized by law. A general authorization for the release of medical or other information is not sufficient for this purpose. Hospital accepts no responsibility if the information is made available to any other person, INCLUDING THE PATIENT. Interpretation Summary * Name: JORDAN GONZALES Study Date: 01/27/2017 06:33 AM BP: 104/53 mmHg * Patient Location: [facility] HR: 90 * : 1995 (M/d/yyyy) Gender: Female Height: 63 in * Age: 21 yrs Ethnicity: Weight: 98 lb * Ordering Physician: Rosalio Quarles * Performed By: Ann Marie Juarez * * Reason For Study: MURMURS, SOFT SYSTOLIC MURMUR, VEGETATION * BSA: 1.4 m2 * -- Conclusions -- * Left ventricular systolic function is normal. * There is a large vegetation or mass on the tricuspid valve. Procedure Details * A complete two-dimensional transthoracic echocardiogram was performed (2D, M-mode, Doppler and color flow Doppler). Left Ventricle * The left ventricle is normal in size. * There is normal left ventricular wall thickness. * Ejection Fraction = >70 %. * Left ventricular systolic function is normal. Right Ventricle * The right ventricle is normal in size and function. Atria * The left atrial size is normal. * Right atrial size is normal. Mitral Valve * The mitral valve is grossly normal. * There is no mitral regurgitation noted. Tricuspid Valve * The tricuspid valve is not well visualized, but is grossly normal. * There is a large vegetation or mass on the tricuspid valve. Aortic Valve * The aortic valve is not well visualized. * No hemodynamically significant valvular aortic stenosis. * There is no significant aortic regurgitation. Pericardium/Pleural * There is no pericardial effusion. MMode 2D Measurements and Calculations IVSd 1.2 cm IVSs 1.2 cm LVIDd 3.2 cm LVIDs 1.9 cm LVPWd 0.92 cm LVPWs 1.3 cm IVS/LVPW 1.3 FS 40.5 % EDV(Teich) 40.2 ml ESV(Teich) 11.0 ml EF(Teich) 72.7 % EDV(cubed) 32.0 ml ESV(cubed) 6.7 ml EF(cubed) 79.0 % % IVS thick 2.5 % % LVPW thick 45.1 % LV mass(C)d 95.1 grams LV mass(C)dI 66.6 grams/m\S\2 LV mass(C)s 66.7 grams LV mass(C)sI 46.7 grams/m\S\2 CO(Teich) 2.9 l/min CI(Teich) 2.0 l/min/m\S\2 SV(Teich) 29.2 ml SI(Teich) 20.5 ml/m\S\2 CO(cubed) 2.5 l/min CI(cubed) 1.8 l/min/m\S\2 SV(cubed) 25.3 ml SI(cubed) 17.7 ml/m\S\2 ACS 1.0 cm LA dimension 2.0 cm asc Aorta Diam 2.1 cm LVOT diam 1.8 cm LVOT area 2.5 cm\S\2 LVAd ap4 18.3 cm\S\2 LVLd ap4 6.1 cm EDV(MOD-sp4) 45.0 ml LVAs ap4 8.7 cm\S\2 LVLs ap4 5.1 cm ESV(MOD-sp4) 12.7 ml EF(MOD-sp4) 71.8 % LVAd ap2 20.0 cm\S\2 LVLd ap2 6.8 cm EDV(MOD-sp2) 50.5 ml LVAs ap2 9.0 cm\S\2 LVLs ap2 5.3 cm ESV(MOD-sp2) 12.5 ml EF(MOD-sp2) 75.2 % CO(MOD-sp4) 3.2 l/min CI(MOD-sp4) 2.3 l/min/m\S\2 SV(MOD-sp4) 32.3 ml SI(MOD-sp4) 22.6 ml/m\S\2 CO(MOD-sp2) 3.8 l/min CI(MOD-sp2) 2.7 l/min/m\S\2 SV(MOD-sp2) 38.0 ml SI(MOD-sp2) 26.6 ml/m\S\2 Doppler Measurements and Calculations MV E max cb 96.5 cm/sec MV dec time 0.15 sec Ao V2 max 111.2 cm/sec Ao max PG 4.9 mmHg Ao max PG (full) 2.2 mmHg ANA(V,A) 1.9 cm\S\2 ANA(V,D) 1.9 cm\S\2 LV V1 max PG 2.8 mmHg LV V1 max 83.4 cm/sec PA V2 max 95.1 cm/sec PA max PG 3.6 mmHg TR max cb 224.0 cm/sec
[2017-01-27] MEDS ORDERED: ENOXAPARIN 40 MG/0.4 ML SYR SC SCH (09:00)
[2017-01-27] MEDS: POTASSIUM CHLR 10 MEQ / WTR 10 MEQ in PREMIXED WATER 100 ML IV SCH ×2 (10:01→11:01)
[2017-01-27] MEDS: VANCOMYCIN INJ 700 MG in SODIUM CHLORIDE 0.9% 250ML 250 ML IV SCH ×2 (10:02→18:07)
--- NOTE | 2017-01-27 10:39 | Medical Consult ---
Consultation Date of Consultation: January 27, 2017. Attending Physician: William Siegel M.D. Reason for Consultation: Bacteremia, mass on echo, immunocompromise History of Present Illness Patient is a 21-year-old female with history of metastatic ovarian cancer who presented to the emergency department with complaints of a constant fever for the past few days. The patient did have a treatment of chemotherapy approximately 5 days ago, and she is scheduled for another treatment in a few days. The patient was evaluated in the emergency department on 01/24/2017 at which time of blood cultures were drawn and 1/2 blood cultures is growing gram- positive bacilli pending identification and sensitivities. The patient was called with these results and return to the emergency department for further evaluation. She states that she had also been experiencing some abdominal pain and diarrhea prior to admission. The patient has had low-grade fevers since admission up to 37.9 C. she was having sweats and chills prior to admission, but those have since subsided. Her white blood cell count on admission was 13.00. Her creatinine was 0.48. Her C reactive protein was 8.79. She did have a procalcitonin as well which was 0.22. Blood in urine cultures from current admission are pending. Chest x-ray showed no acute cardiopulmonary findings. Patient was started empirically on IV Zosyn, vancomycin, and Levaquin. The patient did also have an echocardiogram since admission which showed a large mass on the tricuspid valve. The patient is anticipated to have a ANIA later today. Past Medical/Surgical History Medical Problems: (1) Colonic obstruction Status: Acute (2) Dehydration Status: Acute (3) Epigastric pain Status: Acute (4) Fever Status: Acute (5) Lower abdominal pain Status: Acute (6) Metastatic cancer Status: Acute (7) Status: Acute (8) Status: Acute (9) Status: Acute (10) Urinary tract infection Status: Acute (11) UTI (urinary tract infection) Status: Acute (12) Vaginal discharge Status: Acute (13) Vomiting during Status: Acute Medical Problems: (1) Bacteremia (2) Colon cancer (3) Immunosuppressed due to chemotherapy (4) No pertinent past medical history (5) Ovarian cancer Surgical Problems: (1) S/P colostomy Family History Hypertension Noncontributory Social History Smoking Status: Never Smoker Drug Use: none Marital Status: in relationship Housing Status: lives with roommate Occupation Status: [employer] student Allergies Coded Allergies: No Known Allergies (Unverified , 01/26/17) Home Medications Reported Home Medications Medications Dose Route/Sig Max Daily Dose Days Date Category No Active Prescriptions or Reported Medications Rx Current Inpatient Medications Current Inpatient Medications Medications (Trade) Dose Ordered Sig/Dominik Route Start Time Stop Time Status Last Admin Dose Admin Piperacillin Sod/ Tazobactam Sod 3.375 gm/Dextrose 115 ml @ 28.75 mls/ hr Q8H IV 01/27/17 06:00 01/29/17 05:59 01/27/17 05:41 28.75 MLS/HR Vancomycin HCl 700 mg/Sodium Chloride 264 ml @ 125 mls/hr Q8H IV 01/27/17 10:00 01/29/17 09:59 01/27/17 10:02 125 MLS/HR Levofloxacin/Prmx (Levaquin / D5W/ Premixed D5W) 150 ml @ 100 mls/hr Q24H IV 01/27/17 04:00 01/29/17 03:59 01/27/17 04:16 100 MLS/HR Piperacillin Sod/ Tazobactam Sod (Consult) 1 ea UD PRN N/A 01/27/17 04:15 02/26/17 04:14 Vancomycin HCl (Consult) 1 ea UD PRN N/A 01/27/17 04:15 02/26/17 04:14 Heparin Sodium (Porcine) (Heparin 100 Unit/ml 5ml Flush) 5 ml PRN PRN IV 01/27/17 06:45 02/26/17 06:44 Ondansetron HCl 4 mg 4 mg Q4H PRN IV 01/27/17 07:15 02/26/17 07:14 Potassium Chloride/Prmx (Kcl 10 Meq / Wtr/Premixed Water) 100 ml @ 100 mls/hr Q1H IV 01/27/17 09:15 01/27/17 11:14 01/27/17 10:01 100 MLS/HR Review of Systems Constitutional: + fatigue, + fever, No chills, No sweats Eyes: No worsening of vision ENT: No hearing loss, No sore throat Respiratory: No cough, No shortness of breath Cardiovascular: + problem reported (port of the right chest wall x 1 month), No chest pain Abdomen: + nausea, No diarrhea, No pain, No vomiting Musculoskeletal: No joint pain, No swelling Genitourinary - Female: No dysuria, No urinary frequency, No urinary incontinence, No urinary urgency Integumentary: No itch, No new/changing skin lesions, No rash Physical Exam Date Time Temp Pulse Resp B/P Pulse Ox O2 Delivery O2 Flow Rate FiO2 01/27/17 08:30 37.1 102 22 108/50 96 Room Air 01/27/17 04:00 Room Air 01/27/17 02:45 36.8 90 16 104/53 96 Room Air 01/27/17 02:25 115 18 103/59 98 01/27/17 00:20 37.6 122 18 101/61 98 Room Air 01/26/17 23:01 37.6 129 20 103/59 97 Room Air General Appearance: WD/WN, no apparent distress Head: normocephalic, atraumatic Eyes: normal inspection, sclerae normal ENT: hearing grossly normal Neck: supple, trachea midline Respiratory/Chest: chest non-tender, lungs clear, normal breath sounds, no respiratory distress, no accessory muscle use Cardiovascular: regular rate, rhythm, no murmur, + pertinent finding (right chest wall port- no surrounding erythema/edema) Abdomen/GI: normal bowel sounds, non tender, soft Back: normal inspection Extremities/Musculoskelatal: normal inspection, no calf tenderness, no pedal edema Neurologic/Psych: alert, normal mood/affect, oriented x 3 Skin: normal color, warm/dry, no rash Laboratory Results Last 24 Hours Test 01/26/17 23:30 01/26/17 23:36 01/27/17 05:15 White Blood Count 13.00 K/uL 12.38 K/uL Red Blood Count 3.39 M/uL 3.07 M/uL Hemoglobin 9.0 g/dL 7.9 g/dL Hematocrit 27.0 % 24.3 % Mean Corpuscular Volume 79.6 fL 79.2 fL Mean Corpuscular Hemoglobin 26.5 pg 25.7 pg Mean Corpuscular Hemoglobin Concent 33.3 g/dl 32.5 g/dl Platelet Count 298 K/uL 252 K/uL Mean Platelet Volume 9.5 fL 9.0 fL RDW Standard Deviation 39.8 fL 39.8 fL RDW Coefficient of Variation 13.9 % 13.9 % Neutrophils % (Manual) 76.5 % 80.1 % Lymphocytes % (Manual) 12.2 % 9.6 % Monocytes % (Manual) 6.1 % 4.3 % Metamyelocytes % 2.6 % 4.3 % Myelocytes % 2.6 % 1.7 % Neutrophils # (Manual) 9.95 K/uL 9.92 K/uL Total Absolute Neutrophils 9.95 K/uL 9.92 K/uL Lymphocytes # (Manual) 1.59 K/uL 1.19 K/uL Total Absolute Lymphocytes 1.59 K/uL 1.19 K/uL Monocytes # (Manual) 0.79 K/uL 0.53 K/uL Metamyelocytes # 0.34 K/uL 0.53 K/uL Myelocytes # 0.34 K/uL 0.21 K/uL Toxic Granulation 1+ 1+ Toxic Vacuolation OCCASIONAL OCCASIONAL Sodium Level 135 mmol/L 139 mmol/L Potassium Level 3.6 mmol/L 3.2 mmol/L Chloride Level 98 mmol/L 106 mmol/L Carbon Dioxide Level 32 mmol/L 28 mmol/L Anion Gap 5.0 mmol/L 5.0 mmol/L Blood Urea Nitrogen 9 mg/dl 7 mg/dl Creatinine 0.48 mg/dl 0.37 mg/dl Estimated GFR () > 150.0 > 150.0 Estimated GFR (Non- 139.2 > 150.0 BUN/Creatinine Ratio 19.1 17.7 Random Glucose 136 mg/dl 102 mg/dl Calcium Level 8.1 mg/dl 7.5 mg/dl C-Reactive Protein 8.79 mg/dl Procalcitonin 0.22 ng/ml Bedside Lactic Acid Venous 1.72 mmol/L Prothrombin Time 12.0 SECONDS Prothromb Time International Ratio 1.1 Activated Partial Thromboplast Time 29.5 SECONDS Partial Thromboplastin Ratio 1.1 Est Creatinine Clear Calc Drug Dose 160.8 ml/min Lactic Acid Level 1.0 mmol/L Total Bilirubin 0.2 mg/dl Direct Bilirubin < 0.1 mg/dl Aspartate Amino Transf (AST/SGOT) 17 U/L Alanine Aminotransferase (ALT/SGPT) 32 U/L Alkaline Phosphatase 188 U/L Total Protein 5.6 gm/dl Albumin 1.9 gm/dl Assessment & Plan Patient is a 21 yo female with metastatic ovarian CA and fevers following chemotherapy treatment. She has Gram positive bacilli grow from 1/2 blood cultures in the ED 2 days [facility] and this culture is still pending. She is currently on IV Zosyn, Vancomycin, and Levaquin. Will change IV Zosyn to IV Unasyn for coverage of possible Listeria, though feel more likely that this patient's GPB in 1/2 bottles in contamination. With her immunocompromise, she is however more prone to different infections. Will continue other abx coverage pending further workup. Mass seen on tricuspid valve on TTE, anticipating ANIA this morning. Question whether this is septic vegetation versus metastatic disease. We will continue to follow, but overall I would have a low threshold for transfer of this patient. PROVIDER ADDENDUM: Pt. examined and reviewed with Ms. Gomez. Agree with above assessment.
[2017-01-27] MEDS ORDERED: NURSING VERBAL MED ORDER ONE (12:30)
[2017-01-27] MEDS ORDERED: ACETAMINOPHEN 325 MG TAB ONE (12:34)
[2017-01-27] MEDS: AMPICILLIN/SULBACTAM SOD INJ 3,000 MG in SODIUM CHLORIDE 0.9% 100ML 100 ML IV SCH ×2 (12:35→17:41)
[2017-01-27] MEDS ORDERED: ACETAMINOPHEN 325 MG TAB PO PRN (12:45)
[2017-01-27] MEDS ORDERED: FENTANYL CITRATE INJ 50 MCG/1 ML 2 ML VIAL ONE ×2 (14:31→14:56)
[2017-01-27] MEDS ORDERED: MIDAZOLAM HCL 1 MG/ML 2ML VIAL ONE ×2 (14:31→14:55)
[2017-01-27] MEDS ORDERED: TYL325X PO (16:36)
[2017-01-27] MEDS ORDERED: ZFRI4 IV (16:36)
[2017-01-27] MEDS ORDERED: ENOX1INJ9 SQ (16:36)
--- NOTE | 2017-01-27 16:38 | Discharge Instructions ---
Discharge Instructions Date of Service January 27, 2017. Admission Reason for Admission: Bacteremia, Immunosuppressed Due To Chemotherapy Discharge Discharge Diagnosis / Problem: Bacteremia,Fever,Cardiac mass Discharge Goals Goal(s): Improve disease control, Diagnostic testing, Therapeutic intervention Activity Recommendations Activity Limitations: as noted below Exercise/Sports Limitations: rest today . Instructions / Follow-Up Instructions / [place] [facility] [place] Patient's current hospital diet: Regular Diet Discharge Diet Recommended Diet: Regular Diet Procedures Procedures Performed: ANIA TTE Pending Studies Studies pending at discharge: yes List of pending studies: Blood cultures from 01/24 and 01/26 Urine culture 01/26 Medical Emergencies . Who to Call and When: Medical Emergencies: If at any time you feel your situation is an emergency, please call 911 immediately. . Non-Emergent Contact Non-Emergency issues call your: Primary Care Provider . . "Provider Documentation" section prepared by Meera North. . VTE Core Measure Inpt VTE Proph given/why not?: Enoxaparin (Lovenox)SQ
[2017-01-27] MEDS ORDERED: ENOXAPARIN 1 MG/KG SQ ONE (16:39)
[2017-01-27] MEDS ORDERED: ENOXAPARIN 1 MG/KG SQ SCH (16:45)
--- NOTE | 2017-01-27 17:06 | TEE ---
*NOTICE TO RECEIVING [employer] This information is strictly Confidential and protected under [place] law. [place] law prohibits you from making any further disclosure of this information unless further disclosure is expressly permitted by the written consent of the person to whom it pertains or is authorized by law. A general authorization for the release of medical or other information is not sufficient for this purpose. Hospital accepts no responsibility if the information is made available to any other person, INCLUDING THE PATIENT. Interpretation Summary * Name: JORDAN GONZALES Study Date: 01/27/2017 02:09 PM BP: 101/59 mmHg * Patient Location: 206 HR: 104 * : 1995 (M/d/yyyy) Gender: Female Height: 63 in * Age: 21 yrs Ethnicity: Weight: 94 lb * Ordering Physician: MD Gautam Dai MD * Performed By: Ann Marie Juarez * * Reason For Study: ASSESS LV FUNCTION, RA MASS * BSA: 1.4 m2 * -- Conclusions -- * 1. 3.0 x 1.0 cm homogenous, mass attached to the inferior aspect of the right atrial wall/eustachian valve. Mass near distal tip of SVC catheter. Mobile mass extends through the tricuspid valve. Does not appear attached to tricuspid valve and no apparent valvular dysfunction. * 2. Second 1.0 x 1.0 cm mass attached to anterior wall of right atrium. * 3. Based on echocardiographic appearance and clinical history suspect masses represents thrombus. Less likely metastatic disease. * 4. Findings discussed with Dr. North and [facility] cardiology/windows deployment technician-oncology. Procedure Details * The transesophageal portion of this study was personally supervised by the undersigned interpreting physician. * ANIA Probe #2 utilized for procedure. * The study was performed in Cardiac Catheterization Lab. * Time out was conducted by the physician, nurse, and all source intelligence technician with positive identification of patient and procedure. * Informed consent for Transesophageal Echocardiogram was obtained prior to the procedure. * An intravenous line was placed. A topical anesthetic agent was used for oropharangeal anesthesia. A bite block was inserted. * The patient's vital signs, including blood pressure, heart rate, pulse oximetry and cardiac rhythm were monitored throughout the procedure . * A multifrequency, multiplane transesopheageal echocardiographic endoscope was inserted and manipulated in the standard fashion to achieve multiplane views. * The transesophageal probe was passed without difficulty. * The usual views were obtained; basal, mid-esophageal, transgastric and aortic views. * The patient tolerated the procedure well without evidence of orophangeal or esophageal trauma. * A 2D transesophageal echocardiogram with spectral and color flow Doppler was performed. * Midazolam 4 mg administered for sedation. * Fentanyl 100 mcg was administered for procedural sedation. * A 2D transesophageal echocardiogram was performed. * A 2D transesophageal echocardiogram with color flow Doppler was performed. * A 2D transesophageal echocardiogram with Doppler and color flow Doppler was performed. Left Ventricle * The left ventricle is grossly normal size. * There is normal left ventricular wall thickness. * Left ventricular systolic function is normal. * No regional wall motion abnormalities noted. Right Ventricle * The right ventricle is grossly normal size. * The right ventricular systolic function is normal. Atria * The left atrial size is normal. * Right atrial size is normal. * 3.0 x 1.0 cm homogenous mass attached to the inferior aspect of the right atrial wall/eustachian valve near the distal tip of SVC catheter. Second 1.0 x 1.0 cm mass attached to anterior wall of right atrium * No ASD detected; PFO is not assessed. Mitral Valve * The mitral valve is grossly normal. * There is no mitral valve stenosis. * Significant mitral regurgitation is absent. Tricuspid Valve * The tricuspid valve is not well visualized, but is grossly normal. * There is no tricuspid stenosis. * Significant tricuspid regurgitation is absent. Aortic Valve * The aortic valve is trileaflet. * No hemodynamically significant valvular aortic stenosis. * There is no significant aortic regurgitation. Pulmonic Valve * The pulmonic valve is not well seen, but is grossly normal. * There is no pulmonic valvular stenosis. * There is no pulmonic valvular regurgitation. Great Vessels * The aortic root and proximal ascending aorta are normal sized. Pericardium * There is no pericardial effusion.
--- NOTE | 2017-01-27 17:54 | Discharge Summary ---
Discharge Summary Date of Service January 27, 2017. (Brigitte Stephen MD) Discharge Summary Admission Date: January 27, 2017 at 02:00 Discharge Date: January 27, 2017 Discharge Disposition: Acute care facility Principal Diagnosis: bacteremia, cardiac mass Problems/Secondary Diagnoses: Metastatic ovarian cancer Procedures: TTE, ANIA Consultations: Cardiology, infectious disease (Brigitte Stephen MD) Medication Reconciliation New Medications: Enoxaparin Sodium (Lovenox) 40 Mg/0.4 Ml Inj 40 MG SQ Q12 for 30 Days, SYR Acetaminophen (Tylenol) 325 Mg Tab 650 MG PO Q4H PRN for Fever for 30 Days, TAB Ondansetron (Ondansetron Hcl) 2 Mg/Ml Inj 4 MG IV Q4H PRN for Nausea for 30 Days Discharge Exam 21-year-old female with past medical history of metastatic ovarian cancer status post colectomy admitted after one of her blood cultures from 01/24 was positive for gram-positive bacilli. She states that she has had fevers for the last few days associated with chills and has"sick" feeling in her stomach. Denies any chest pain, difficulty breathing, palpitations, coughing, dysuria, frequency, hematuria, abdominal pain , vomiting, diarrhea, headache, stiffness Review of Systems: Constitutional: + chills, + fever, + sweats Eyes: No worsening of vision ENT: No hearing loss Respiratory: No cough, No dyspnea on exertion, No shortness of breath, No sputum Cardiovascular: No chest pain Abdomen: + nausea, No diarrhea, No pain, No vomiting Musculoskeletal: No joint pain Genitourinary - Female: No dysuria, No urinary frequency, No urinary urgency Neurologic: No memory loss, No numbness/tingling Psychiatric: No depression symptoms Endocrine: No fatigue Hematologic / Lymphatic: No abnormal bleeding/bruising Integumentary: No rash Physical Exam: General Appearance: WD/WN, no apparent distress Eyes: normal inspection ENT: normal ENT inspection, hearing grossly normal Neck: supple, + pertinent finding (no neck stiffness) Respiratory/Chest: chest non-tender, lungs clear, no respiratory distress, no accessory muscle use, + pertinent finding (Ofacpl-o-Ahlk right side of chest) Cardiovascular: + tachycardia, + systolic murmur Abdomen / GI: soft, + tenderness (left-sided tenderness), + pertinent finding (colostomy bag with normal appearing output) Extremities: no calf tenderness, no pedal edema Neurologic/Psychiatric: alert, normal mood/affect, oriented x 3 Skin: normal color, no rash, + pertinent finding (no evidence of petechia, splinter hemorrhages.) (Brigitte Stephen MD) Hospital Course 21-year-old female with past medical history of metastatic ovarian cancer status post colectomy done at [facility] presented to the ER after one of her blood cultures from 01/24 grew gram-positive bacilli. She had presented to the ER on 01/24 with complaints of fevers and chills, cultures were drawn and she was sent home after receiving IV fluids and acetaminophen. She returned to the ER with persistent fever along with abdominal pain and diarrhea. One of the 2 bottles from her earlier visit had grown gram-positive bacilli. She was admitted and evaluated for bacteremia. Blood cultures 2, urine cultures were drawn. Her initial labs revealed a slight increase in her white count to 13 K from 9.28K 2 days ago. Her creatinine was 0.48. Her C reactive protein was 8.79. She did have a procalcitonin as well which was 0.22. Blood in urine cultures from current admission are pending. Chest x-ray showed no acute cardiopulmonary findings. Patient was started empirically on IV Zosyn, vancomycin, and Levaquin. Infectious disease was consulted and Zosyn was switched to Unasyn for covering Listeria while continuing the other antibiotics. Later that afternoon she did spike a temp of 37.9 and received Tylenol. The patient did also have an transthoracic echocardiogram since admission which showed a large mass on the tricuspid valve. She then had a transesophageal echo which revealed : * 1. 3.0 x 1.0 cm homogenous, mass attached to the inferior aspect of the right atrial wall/eustachian valve. Mass near distal tip of SVC catheter. Mobile mass extends through the tricuspid valve. Does not appear attached to tricuspid valve and no apparent valvular dysfunction. * 2. Second 1.0 x 1.0 cm mass attached to anterior wall of right atrium. * 3. Based on echocardiographic appearance and clinical history suspect masses represents thrombus. Less likely metastatic disease. She was started on Lovenox 1 mg/kg SQ BID for for the cardiac mass suspected to be a thrombus. The case was discussed with [facility] at [place] who had accepted the transfer. She will be transferred with IV antibiotics including vancomycin, Unasyn, Levaquin and Lovenox. Total Time Spent: Greater than 30 minutes This includes examination of the patient, discharge planning, medication reconciliation, and communication with other providers. (Brigitte Stephen MD) Discharge Instructions Please refer to the electronic Patient Visit Report (Discharge Instructions) for additional information. (Brigitte Stephen MD) Reviewed: Pt Seen/Exam by Me (Meera North MD) History Resident Physician Supervision Note: I interviewed and examined the patient. Discussed with Dr. Stephen and agree with findings and plan as documented in the note. Any exceptions or clarifications are listed here: Patient is an unfortunate 21-year-old with metastatic germ cell ovarian cancer who presented with fevers and one out of 2 bottles of blood cultures positive for gram-positive bacilli. The ID and sensitivity of the organism was not available at time of transfer to [facility]. She was hemodynamically stable and otherwise feeling fairly well. She did have low- grade fevers through her stay to a MAXIMUM TEMPERATURE of 37.9. Apparently she has been having fevers for weeks even before she started her chemotherapy which were thought to be related to her cancer. It is unclear if this blood culture is a contaminant or true bacteremia. Nonetheless, she was found to have this large right atrial mass thought to be thrombus versus metastatic disease. She was started on full dose Lovenox and transferred [facility] where her gynecologic oncologist dislocated. She will also need a cardiac MRI to further identify the right atrial mass. Telemetry showed sinus rhythm and sinus tachycardia, vitals reviewed as above No acute distress, thin female RRR no MGR Clear to auscultation bilaterally, breathing unlabored Abdomen soft nontender positive bowel sounds, colostomy bag in place with normal -appearing liquid brown stool Extremities no edema, negative Homans sign, normal peripheral pulses, no calf tenderness Skin no rashes, right-sided chest wall port without any surrounding erythema or induration. Documented By: Meera North (Meera North MD)
[2017-01-27] MEDS ORDERED: ENOXAPARIN 40 MG/0.4 ML SYR SQ SCH (18:00)
--- NOTE | 2017-01-28 01:02 | CARDIOLOGY CONSULTATION ---
DATE OF CONSULTATION: 01/27/2017 CONSULTATION REQUESTED BY: Dr. North. REASON FOR CONSULTATION: Right atrial mass. HISTORY OF PRESENT ILLNESS: Ms. Murray is a very pleasant unfortunate 21-year-old with a history of recently diagnosed ovarian cancer on chemotherapy and status post partial colonic resection with colostomy, who was admitted yesterday in the setting of fevers and a positive blood culture. The patient developed fevers approximately 3 days ago and had presented to the Emergency Department. At that time, blood cultures were drawn and 1 out of 2 came back positive with gram positive bacilli. She was contacted regarding results and was admitted last night. Since that time, she has had intermittent fevers. Cultures have not been speciated any further. She was started on IV antibiotics and had a transthoracic echocardiogram done this morning, which showed a relatively large right atrial mass. As a result, cardiology was consulted. PAST MEDICAL HISTORY: 1. Ovarian cancer diagnosed in November of 2016. 2. Colonic mass, status post partial resection with colostomy. 3. On chemotherapy for ovarian cancer, treatment started last week. Next treatment planned for Wednesday, 2 days from now. 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 She is from [facility]. Denies tobacco or alcohol use. FAMILY HISTORY: No family history of premature coronary artery disease and no history of significant cancer. REVIEW OF SYSTEMS: 10-point review of systems was completed and otherwise negative unless stated in HPI. PHYSICAL EXAMINATION: VITAL SIGNS: Temperature 37.9, pulse 104, blood pressure 101/59, and satting 97% on room air. GENERAL: The patient appears comfortable, thin, in no acute distress. HEENT: Her sclerae are anicteric. Her oropharynx is clear. LUNGS: Clear to auscultation bilaterally. CARDIAC: She has a regular rate and rhythm. She is tachycardic, but no appreciable murmurs, rubs or gallops. ABDOMEN: Soft. She has a colostomy in place. Minimal diffuse tenderness. EXTREMITIES: Warm. She has no significant lower extremity edema. SKIN: Shows no significant rashes. NEUROLOGIC: Nonfocal. PSYCHIATRIC: Alert and oriented x3 with appropriate mood and affect. LABORATORY DATA: Sodium 139, potassium 3.2, BUN 7, and creatinine of 0.4. AST and ALT within normal limits. Alk phos mildly elevated at 188. Normal total bilirubin, albumin of 1.9. INR of 1.1. Hemoglobin of 7.9 down from 9.0 yesterday. White blood cell count 12.3 and platelet count of 252. MICROBIOLOGY: Repeat blood cultures drawn yesterday. Blood cultures from January 24 show 1 out of 2 with gram positive bacilli. Further speciation pending. IMAGING STUDIES: Chest x-ray showed no acute cardiopulmonary findings. ECHOCARDIOGRAM: Transthoracic echocardiogram showed normal LV size and function with an EF greater than 70%. There was a large mass noted near the tricuspid valve. No other significant valvular pathology. EKG shows sinus tachycardia with a ventricular rate of 105. No event on telemetry. Transesophageal echocardiogram showed a 3 x 1 cm homogeneous mass attached to the right atrial wall. Mass was mobile and flipped in and out across the tricuspid valve. There was a second right atrial mass noted. This one 1 x 1 cm, again attached to adjacent atrial wall. Her port distal tip was noted in the right atrium. There was no adherent mass. IMPRESSION AND PLAN: 1. Large right atrium mobile masses. 2. Ovarian cancer, on chemotherapy. 3. Positive blood cultures, on broad spectrum antibiotics. Due to large mass noted on transthoracic echocardiogram, decision was made to proceed with a transesophageal echocardiogram. Risks, benefits, and alternatives of the procedure were discussed with the patient. Findings on transesophageal echocardiogram were notable for multiple large masses, mobile, flipping in and across the tricuspid valve. This mass did not appear to be involving the tricuspid valve and there was no evidence of tricuspid valve dysfunction. Also reviewed the patient's CT of her chest done in the end of November with radiology. There was no evidence of any right atrial mass at that time. With the combined findings of malignancy, superior vena cava catheter and echocardiographic appearance, I feel that this is probably most consistent with thrombus. Metastatic disease to the atrium less likely. I do not feel this represents myxoma. In that setting, would plan on starting anticoagulation. Due to the size of thrombus and her ongoing cancer treatment at [place], I feel that the patient will be best served with transfer to a tertiary center. Discussed this with [facility] de icer finisher ribbon blocker as well as the [facility] oncology attending and they are willing to accept in transfer. The patient will be transferred later this evening. Plan further discussed with Dr. North. Thank you for allowing us to participate in the care of this patient. Please contact with any questions. SMILEY
[2017-01-28] MEDS ORDERED: LEVOFLOXACIN / D5W 750 MG in PREMIXED IN D5W 150 ML IV SCH (04:00)
[2017-01-28] MEDS ORDERED: VANCOMYCIN TROUGH SCH (09:30)
== END 2017-01-27 19:35 | disposition short-term general hospital (02) | DRG 872 ==
LOC: ENRESERVDT → ENRESERVTM → C.EDB 22:58 → C.2E 01-27 02:00
PROVIDERS: ADMIT Hospitalist; ATTEND Hospitalist
PROC: B246ZZ4 Ultrasonography of Right and Left Heart, Transesophageal (ICD-10-PCS; principal; 2017-01-27 14:38)
DX: R78.81 Bacteremia (principal); C56.9 Malignant neoplasm of unspecified ovary; T45.1X5A Adverse effect of antineoplastic and immunosuppressive drugs, initial encounter; R22.2 Localized swelling, mass and lump, trunk; Z85.038 Personal history of other malignant neoplasm of large intestine; Z93.3 Colostomy status

== ENCOUNTER 2017-02-11 19:25 | Emergency (ER) | payer OTHER ==
[~2017-02-11] VITALS: Ht 157.5 cm; Wt 42.6 kg
[~2017-02-11 19:25] MED LIST changes: +ENOX1INJ9 SQ; -PROM25TA9 PO; +TYL325X PO; +ZFRI4 IV
[2017-02-11 19:27] VITALS: Ht 157.5 cm; Wt 42.6 kg
[2017-02-11] MEDS ORDERED: CEFEPIME IV 2,000 MG in DEXTROSE 5% 100ML 100 ML IV STA (19:45)
[2017-02-11] MEDS ORDERED: MoRPHine SULFATE 4 MG/ML 1 ML CARP\\VIAL IV PRN (19:45)
[2017-02-11] MEDS ORDERED: SODIUM CHLORIDE 0.9% 1000ML 1,000 ML IV ONE (19:45)
[2017-02-11] MEDS ORDERED: ACETAMINOPHEN 325 MG TAB PO ONE (19:45)
--- NOTE | 2017-02-11 20:06 | DIAGNOSTIC IMAGING REPORT ---
CHEST ONE VIEW PORTABLE CLINICAL HISTORY: Sepsis dyspnea COMPARISON STUDY: 01/26/2017 FINDINGS: Lungs are clear. Diaphragms are smooth. Central catheter in superior vena cava. IMPRESSION: Negative chest. Electronically signed by: Jonatan Jauregui M.D. 02/11/2017 8:04 PM Dictated Date/Time: 02/11/2017 8:04 PM
[2017-02-11] MEDS ORDERED: ONDA4TAB46 PO (20:26)
[2017-02-11] MEDS: ONDANSETRON INJ 2 MG/ML 2 ML VIAL IV STA ×2 (20:33→20:35)
[2017-02-11 20:37] LABS: HEMATOCRIT 24.3 % (37-47); MEAN CELL VOLUME 82.4 fL (80-100); MEAN CORPUSCULAR HEMOGLOBIN 26.8 pg (25-34); MEAN CORPUSCULAR HGB CONC 32.5 g/dl (32-36); MEAN PLATELET VOLUME 9.4 fL (7.4-10.4); PLATELET COUNT 120 K/uL (130-400); RED BLOOD COUNT 2.95 M/uL (4.2-5.4); WHITE BLOOD COUNT 1.74 K/uL (4.8-10.8)
[2017-02-11 20:40] LABS: INR 1.1 (0.9-1.1); PARTIAL THROMBOPLASTIN RATIO 1.2; PROTHROMBIN TIME (PATIENT) 11.5 SECONDS (9.0-12.0)
[2017-02-11 20:43] LABS: BUN/CREATININE RATIO 16.4 (10-20); CREATININE 1.6 mg/dl (0.60-1.20); MAGNESIUM 1.7 mg/dl (1.8-2.4); POTASSIUM 3.7 mmol/L (3.5-5.1)
[2017-02-11 20:46] LABS: ALB/GLOB RATIO 0.6 (0.9-2)
[2017-02-11] MEDS ORDERED: MAGNESIUM SULFATE 1GM / D5W 1 GM BAG IV STA (20:46)
[2017-02-11 20:54] LABS: ANISOCYTOSIS PRESENT; BASO % 1.1 %; BASO ABS # 0.02 K/uL (0-0.2); COMPLETE YES; EOS % 3.4 %; LYMPH % 49.4 %; LYMPH ABS # 0.86 K/uL (1.2-3.4); MONO % 16.1 %
[2017-02-11 21:54] LABS: CALCIUM 8.9 mg/dl (8.5-10.1)
--- NOTE | 2017-02-11 22:16 | EMERGENCY ROOM VISIT NOTE ---
History Report prepared by Pratik: Halle Casper Under the Supervision of: Dr. Ashok Lee M.D. First contact with patient: 19:40 Chief Complaint: FEVER Stated Complaint: FEVER, STOMACH ACHE History of Present Illness The patient is a 21 year old female who presents to the Emergency Room with complaints of a constant fever. She also complains of nausea, and upper abdominal pain rated at a 5/10. Her symptoms began 30 minutes ago. The patient has ovarian cancer, and receives chemotherapy about once per week, the latest of which was 6 days ago. She is treated at [facility] and her doctor at [facility] is unaware that she is currently in the ED. She is not currently on antibiotics. She also denies urinary symptoms, rash, vomiting, sore throat, cough, and a stuffy nose. She has an ostomy and a port in place. The patient was recently discharged from the hospital two days ago for which she was there with sepsis originating from an abdominal source. Source of History: patient Onset: 30 minutes ago Quality: other (fever) Timing: constant Associated Symptoms: + abdominal pain (upper, 5/10), + nausea, No cough, No rash, No urinary symptoms, No vomiting Note: denies stuffy nose Review of Systems See HPI for pertinent positives & negatives. A total of 10 systems reviewed and were otherwise negative. Past Medical & Surgical Medical Problems: (1) Bacteremia (2) Colon cancer (3) Immunosuppressed due to chemotherapy (4) No pertinent past medical history (5) Ovarian cancer Surgical Problems: (1) S/P colostomy Family History Hypertension Social History Smoking Status: Never Smoker Alcohol Use: none Drug Use: none Marital Status: in relationship Housing Status: lives with roommate Occupation Status: [email or web address] student Current/Historical Medications Scheduled Enoxaparin Sodium (Lovenox), 40 MG SQ Q12 Scheduled PRN Ondansetron Hcl (Zofran), 4 MG PO Q4 PRN for Nausea Allergies Coded Allergies: No Known Allergies (Unverified , 01/26/17) Physical Exam Vital Signs Date Time Temp Pulse Resp B/P Pulse Ox O2 Delivery O2 Flow Rate FiO2 02/11/17 23:15 37.3 99 20 111/54 98 02/11/17 22:55 37.3 02/11/17 21:02 38.5 114 20 115/62 100 Room Air 02/11/17 20:27 Room Air 02/11/17 20:24 117 02/11/17 19:27 38.1 126 18 91/60 98 Room Air Physical Exam GENERAL: Patient is in no acute distress. HEENT: No acute trauma, normocephalic atraumatic, mucous membranes moist, no nasal congestion, no scleral icterus. NECK: No stridor, no adenopathy, no meningismus, trachea is midline. LUNGS: Clear to auscultation bilaterally, no wheeze, no rhonchi, breath sounds equal. HEART: Tachycardic, regular rhythm. No murmurs. ABDOMEN: Mid abdominal ostomy with stool in bag, mildly tender epigastrium, mild abdominal distension, no peritonitis. EXTREMITIES: No cyanosis or edema, full range of motion of all the joints without pain or difficulty, no signs for acute trauma. NEUROLOGIC: Oriented x 3, no acute motor or sensory deficits, no focal weakness. SKIN: No rash, no jaundice, no diaphoresis. Warm to touch. Medical Decision & Procedures ER Provider Diagnostic Interpretation: X-ray results as stated below per interpretation by me and the radiologist: CHEST ONE VIEW PORTABLE FINDINGS: Lungs are clear. Diaphragms are smooth. Central catheter in superior vena cava. IMPRESSION: Negative chest. Electronically signed by: Jonatan Jauregui M.D. 02/11/2017 8:04 PM Dictated Date/Time: 02/11/2017 8:04 PM Laboratory Results 02/11/17 20:10 Red Blood Count 2.95, Mean Corpuscular Volume 82.4, Mean Corpuscular Hemoglobin 26.8, Mean Corpuscular Hemoglobin Concent 32.5, Mean Platelet Volume 9.4, Neutrophils (%) (Auto) 30.0, Lymphocytes (%) (Auto) 49.4, Monocytes (%) (Auto) 16.1, Eosinophils (%) (Auto) 3.4, Basophils (%) (Auto) 1.1, Neutrophils # (Auto ) 0.52, Lymphocytes # (Auto) 0.86, Monocytes # (Auto) 0.28, Eosinophils # (Auto ) 0.06, Basophils # (Auto) 0.02 02/11/17 20:10 Test 02/11/17 20:10 02/11/17 20:28 02/11/17 23:13 White Blood Count 1.74 K/uL (4.8-10.8) Red Blood Count 2.95 M/uL (4.2-5.4) Hemoglobin 7.9 g/dL (12.0-16.0) Hematocrit 24.3 % (37-47) Mean Corpuscular Volume 82.4 fL (80-100) Mean Corpuscular Hemoglobin 26.8 pg (25-34) Mean Corpuscular Hemoglobin Concent 32.5 g/dl (32-36) Platelet Count 120 K/uL (130-400) Mean Platelet Volume 9.4 fL (7.4-10.4) Neutrophils (%) (Auto) 30.0 % Lymphocytes (%) (Auto) 49.4 % Monocytes (%) (Auto) 16.1 % Eosinophils (%) (Auto) 3.4 % Basophils (%) (Auto) 1.1 % Neutrophils # (Auto) 0.52 K/uL (1.4-6.5) Lymphocytes # (Auto) 0.86 K/uL (1.2-3.4) Monocytes # (Auto) 0.28 K/uL (0.11-0.59) Eosinophils # (Auto) 0.06 K/uL (0-0.5) Basophils # (Auto) 0.02 K/uL (0-0.2) RDW Standard Deviation 50.5 fL (36.4-46.3) RDW Coefficient of Variation 16.7 % (11.5-14.5) Immature Granulocyte % (Auto) 0.0 % Immature Granulocyte # (Auto) 0.00 K/uL (0.00-0.02) Anisocytosis PRESENT Prothrombin Time 11.5 SECONDS (9.0-12.0) Prothromb Time International Ratio 1.1 (0.9-1.1) Activated Partial Thromboplast Time 32.3 SECONDS (21.0-31.0) Partial Thromboplastin Ratio 1.2 Anion Gap 10.0 mmol/L (3-11) Est Creatinine Clear Calc Drug Dose 37.1 ml/min Estimated GFR () 52.5 Estimated GFR (Non- 45.3 BUN/Creatinine Ratio 16.4 (10-20) Calcium Level 8.9 mg/dl (8.5-10.1) Magnesium Level 1.7 mg/dl (1.8-2.4) Total Bilirubin 0.4 mg/dl (0.2-1) Aspartate Amino Transf (AST/SGOT) 12 U/L (15-37) Alanine Aminotransferase (ALT/SGPT) 26 U/L (12-78) Alkaline Phosphatase 240 U/L (45-117) Total Protein 7.4 gm/dl (6.4-8.2) Albumin 2.7 gm/dl (3.4-5.0) Globulin 4.7 gm/dl (2.5-4.0) Albumin/Globulin Ratio 0.6 (0.9-2) Lipase 64 U/L (73-393) Bedside Lactic Acid Venous 1.40 mmol/L (0.90-1.70) Urine Color YELLOW Urine Appearance CLEAR (CLEAR) Urine pH 5.0 (4.5-7.5) Urine Specific [place] 1.015 (1.000-1.030) Urine Protein NEG (NEG) Urine Glucose (UA) NEG (NEG) Urine Ketones NEG (NEG) Urine Occult Blood NEG (NEG) Urine Nitrite NEG (NEG) Urine Bilirubin NEG (NEG) Urine Urobilinogen NEG (NEG) Urine Leukocyte Esterase TRACE (NEG) Urine WBC (Auto) 1-5 /hpf (0-5) Urine RBC (Auto) 0-4 /hpf (0-4) Urine Hyaline Casts (Auto) 1-5 /lpf (0-5) Urine Epithelial Cells (Auto) >30 /lpf (0-5) Urine Bacteria (Auto) NEG (NEG) Urine Yeast (Auto) (NONE PRSENT) Laboratory results reviewed by me. Medications Administered Medications (Trade) Dose Ordered Sig/Dominik Route Start Time Stop Time Status Last Admin Dose Admin Sodium Chloride (Nss 1000ml) 1,000 ml @ 999 mls/hr Q1H1M ONCE IV 02/11/17 19:45 02/11/17 20:45 DC 02/11/17 20:11 999 MLS/HR Acetaminophen 650 mg 650 mg ONE ONCE PO 02/11/17 19:45 02/11/17 19:51 DC 02/11/17 20:33 650 MG Cefepime HCl/ Dextrose (Maxipime IV/D5 100ml) 112.5 ml @ 200 mls/hr ONE STAT IV 02/11/17 19:45 02/11/17 20:18 DC 02/11/17 21:01 200 MLS/HR Magnesium Sulfate (Magnesium Sulfate) 1 gm NOW STAT IV 02/11/17 20:46 02/11/17 20:47 DC 02/11/17 21:39 1 GM Heparin Sodium (Porcine) (Heparin 100 Unit/ml 5ml Flush) 5 ml STK-MED ONCE .ROUTE 02/11/17 23:00 02/11/17 23:01 DC 02/11/17 23:15 5 ML ED Course 1941: The patient was evaluated in room A3. A complete history and physical exam was performed. 1944: Ordered Morphine Sulfate INJ 4mg PRN IV, Zofran Inj 4 mg IV, Cefepime HCl 2,000 mg/Dextrose 112.5 ml @ 200 mls/hr IV, Tylenol Tab 650 mg PO, Sodium Chloride 1,000 ml @ 999mls/hr IV 2045: Ordered Magnesium Sulfate 1 gm IV. 2145: I reassessed the patient. She would like to leave and not stay in the hospital. I discussed the pro's and con's of staying in the hospital with the patient and her mother. They will talk it through. 2152: I spoke with Dr. Keenan. He is willing to evaluate the patient for further management. 2199: Upon reexamination the patient is resting comfortably. She does not want to stay in the hospital, and would like to go home instead. I discussed results and treatment plan with the patient. The patient will be discharged. Medical Decision The patient is a 21 year old female who presents to the ED with complaints of fever and abdominal pain. Differential diagnoses considered include: neutropenia, pneumonia, UTI, pancreatitis, biliary colic, appendicitis, peritonitis, bowel perforation, sepsis, bacteremia. The patient has a low white count, hemoglobin and platelet count. This is likely consistent with her recent chemotherapy. She is neutropenic with a total neutrophil count of around 500. There is some dehydration/renal insufficiency by our testing. Magnesium was somewhat low. No hepatitis. Urinalysis does not show infection. Chest x-ray shows no pneumonia or free air. Blood cultures are pending. Lipase was not elevated making pancreatitis less likely. Lactic acid level was not elevated making sepsis less likely. The patient received IV morphine, IV Zofran and IV saline. She was given IV magnesium and IV cefepime. She received oral Tylenol for her fever. I spoke to the patient's oncology service at [facility]. The patient was able to stay at our hospital or be transferred to their hospital. The patient declined both options. She wanted to go home tonight and then agreed to travel down to [facility] tomorrow for further care. She states that she cannot sleep in the hospital and prefers to go home. She states that she understands that she is neutropenic and she will not have contact with others. She will wear her mask. She has been given antibiotics for broad-spectrum coverage. The patient has agreed to return for worsening symptoms. She will contact her oncology service tomorrow regarding further care. Consults Time Called: 2107 Consulting Physician: Dr. Macias- [facility] Returned Call: [phone] Discussed the patient's case. Dr. Macias recommends that the patient come be evaluated tomorrow. He feels that the patient would be safe to stay as an inpatient at [facility] for tonight. Additional Consults: Time Called: 2147 Consulted Physician[facility] Returned Call: [phone] Additional Comments: Discussed the patient's case. The patient will be evaluated for further management. Impression Primary Impression: Neutropenic fever Additional Impression: Ovarian cancer Scribe Attestation The scribe's documentation has been prepared under my direction and personally reviewed by me in its entirety. I confirm that the note above accurately reflects all work, treatment, procedures, and medical decision making performed by me. Departure Information Dispostion Home / Self-Care Referrals No Doctor, Assigned (PCP) Forms HOME CARE DOCUMENTATION FORM, IMPORTANT VISIT INFORMATION Patient Instructions My [facility] Additional Instructions rest tylenol for fever return if worsening wear mask and isolate yourself from others talk with [facility] doctors tomorrow about traveling down for admission and further care--you have chosen to go home tonight rather than be admitted to the hospital Problem Qualifiers
[2017-02-11 23:15] VITALS: BP 111/54; PULSE 99; TEMP 37.3; O2SAT 98
[2017-02-11 23:37] LABS: MANUAL MICROSCOPIC REQUIRED? NO; REVIEW REQ? YES; URINE APPEARANCE CLEAR (CLEAR); URINE BILIRUBIN NEG (NEG); URINE COLOR YELLOW; URINE EPITHELIAL CELL AUTO >30 /lpf (0-5); URINE NITRITE NEG (NEG); URINE SPECIFIC GRAVITY 1.015 (1.000-1.030); UROBILINOGEN NEG (NEG); ZZUR CULT IF INDIC CLEAN CATCH YES
== END 2017-02-11 23:16 | disposition home or self-care (01) ==
LOC: C.EDB 19:26 → C.EDA 23:16
DX: D70.9 Neutropenia, unspecified (principal); C56.9 Malignant neoplasm of unspecified ovary; Z85.038 Personal history of other malignant neoplasm of large intestine; Z92.21 Personal history of antineoplastic chemotherapy; Z93.3 Colostomy status; Z82.49 Family history of ischemic heart disease and other diseases of the circulatory system

== ENCOUNTER 2017-04-04 13:25 | Inpatient (IN) | payer OTHER ==
[~2017-04-04] VITALS: Ht 162.6 cm; Wt 39.8 kg
[~2017-04-04 13:25] MED LIST changes: -ENOX1INJ9 SQ; +ONDA4TAB46 PO; -TYL325X PO; -ZFRI4 IV
[2017-04-04] MEDS ORDERED: SODIUM CHLORIDE 0.9% 1000ML 1,000 ML IV ONE (14:08)
[2017-04-04] MEDS ORDERED: SODIUM CHLORIDE 0.9% 1000ML 1,000 ML IV STA (14:08)
[2017-04-04] MEDS ORDERED: CEFEPIME IV 2,000 MG in DEXTROSE 5% 100ML 100 ML IV STA (14:08)
[2017-04-04] MEDS ORDERED: ACETAMINOPHEN 325 MG TAB PO STA (14:08)
[2017-04-04] MEDS ORDERED: ACET-1256 PO (14:11)
[2017-04-04] MEDS ORDERED: CMP/10 PO (14:11)
--- NOTE | 2017-04-04 14:14 | EMERGENCY ROOM VISIT NOTE ---
History Report prepared by Pratik: Lex Hutchins Under the Supervision of: Dr. Chris Dailey M.D. First contact with patient: 13:58 Chief Complaint: VOMITING Stated Complaint: VOMITING,FEVER Nursing Triage Summary: patient to ED via triage, hx ovarian cancer, states "I have been throwing up water since last night, I have fevers and belly pain too." tylenol [id number] History of Present Illness The patient is a 21 year old female who presents to the Emergency Room with complaints of a fever that began last night. She states that her fever was as high as 38.6 C. Since then, she has been having episodes of vomiting with nausea , and rhinorrhea. She minimal abdominal pain and no significant headache. She denies any cough, mouth sores, diarrhea, melena, hematochezia, hematemesis, or abnormal urinary symptoms. She cannot eat or drink without vomiting. She has a history of ovarian cancer that spread to her colon and liver. She has an ostomy bag in place and states that it has been normal. The last time she took any medication for her fever was 12 hours ago. Source of History: patient, family Onset: last night Position: other (global) Symptom Intensity: 38.6 C Quality: other (Fever) Timing: waxes/wanes Modifying Factors (Worsening): eating, drinking Associated Symptoms: + headache, + nausea, + vomiting, + abdominal pain, No cough, No melena, No hematochezia, No diarrhea, No urinary symptoms Note: She has rhinorrhea. Review of Systems See HPI for pertinent positives & negatives. A total of 10 systems reviewed and were otherwise negative. Past Medical & Surgical Medical Problems: (1) Bacteremia (2) Colon cancer (3) Immunosuppressed due to chemotherapy (4) Neutropenic fever (5) No pertinent past medical history (6) Ovarian cancer Surgical Problems: (1) S/P colostomy Old medical records were reviewed. Nurse's notes were reviewed and I agree with. Metastatic ovarian cancer Family History Hypertension Social History Smoking Status: Never Smoker Smokeless Tobacco Use: No Alcohol Use: none Drug Use: none Marital Status: in relationship Housing Status: lives with roommate Occupation Status: [employer] student Current/Historical Medications Scheduled Enoxaparin (Lovenox), 40 MG SQ Q12H Scheduled PRN Acetaminophen (Tylenol), 1,000 MG PO DIRECTED PRN for Fever Prochlorperazine Maleate (Prochlorperazine Maleate), 10 MG PO QID PRN for Nausea Allergies Coded Allergies: No Known Allergies (Unverified , 01/26/17) Physical Exam Vital Signs Date Time Temp Pulse Resp B/P (MAP) Pulse Ox O2 Delivery O2 Flow Rate FiO2 04/04/17 15:53 98 Room Air 04/04/17 15:20 131 04/04/17 15:05 38.1 125 16 88/53 98 Room Air 04/04/17 13:32 37.8 152 20 82/53 97 Room Air Physical Exam General: Cachectic, chronically ill appearing young female in no acute distress , breathing comfortably on room air. Normal speech HEENT: Normal cephalic atraumatic. Pupils are equal round and reactive to light. Extraocular movements are intact. Oropharynx is pink with moist mucous membranes. No swelling of the mouth lips or tongue. Neck: Supple with a midline trachea. No meningeal signs or stiffness, no JVD or bruits. No Stridor. Chest: Clear to auscultation bilaterally. No wheezes or rhonchi. No increased work of breathing. A-port in place. Heart: regular rate and rhythm. Abdomen: Soft nontender, nondistended without rebound guarding or rigidity. Ostomy in place with brown stool. Extremities: No cyanosis clubbing or edema. No calf tenderness or assymetry Spine/Back. Non tender to palpation. No CVA tenderness Skin: Good turgor without rashes. Neurologic exam: Cranial nerves two through 12 are intact. Motor and sensation are intact and symmetrical throughout. Medical Decision & Procedures ER Provider Diagnostic Interpretation: Radiology results as stated below per my review and radiologist interpretation: CHEST ONE VIEW PORTABLE CLINICAL HISTORY: CHEST PAIN dyspnea COMPARISON STUDY: 02/11/2017 FINDINGS: Central catheter in superior vena cava. The lungs are clear. Diaphragms are smooth. IMPRESSION: No acute process. The above report was generated using voice recognition software. It may contain grammatical, syntax or spelling errors. Electronically signed by: Jonatan Jauregui M.D. 04/04/2017 2:27 PM Dictated Date/Time: 04/04/2017 2:27 PM Laboratory Results 04/04/17 13:50 Red Blood Count 3.62, Mean Corpuscular Volume 85.6, Mean Corpuscular Hemoglobin 28.7, Mean Corpuscular Hemoglobin Concent 33.5, Mean Platelet Volume 9.7 04/04/17 13:50 Test 04/04/17 13:50 White Blood Count 2.14 K/uL (4.8-10.8) Red Blood Count 3.62 M/uL (4.2-5.4) Hemoglobin 10.4 g/dL (12.0-16.0) Hematocrit 31.0 % (37-47) Mean Corpuscular Volume 85.6 fL (80-100) Mean Corpuscular Hemoglobin 28.7 pg (25-34) Mean Corpuscular Hemoglobin Concent 33.5 g/dl (32-36) Platelet Count 105 K/uL (130-400) Mean Platelet Volume 9.7 fL (7.4-10.4) RDW Standard Deviation 44.5 fL (36.4-46.3) RDW Coefficient of Variation 14.2 % (11.5-14.5) Neutrophils % (Manual) 4.3 % Lymphocytes % (Manual) 53.9 % Monocytes % (Manual) 38.3 % Eosinophils % (Manual) 0.9 % Blast Cells % 2.6 % Neutrophils # (Manual) 0.09 K/uL (1.4-6.5) Total Absolute Neutrophils 0.09 K/uL (1.4-6.5) Lymphocytes # (Manual) 1.15 K/uL (1.2-3.4) Total Absolute Lymphocytes 1.15 K/uL (1.2-3.4) Monocytes # (Manual) 0.82 K/uL (0.11-0.59) Eosinophils # (Manual) 0.02 K/uL (0-0.5) Blast Cells # 0.06 K/uL (0-0) Blood Smear Review Giant Platelets 1+ Anion Gap 11.0 mmol/L (3-11) Estimated GFR () 143.9 Estimated GFR (Non- 124.2 BUN/Creatinine Ratio 19.5 (10-20) Calcium Level 9.1 mg/dl (8.5-10.1) Total Bilirubin 0.6 mg/dl (0.2-1) Aspartate Amino Transf (AST/SGOT) 13 U/L (15-37) Alanine Aminotransferase (ALT/SGPT) 36 U/L (12-78) Alkaline Phosphatase 526 U/L (45-117) Total Protein 7.5 gm/dl (6.4-8.2) Albumin 2.9 gm/dl (3.4-5.0) Globulin 4.6 gm/dl (2.5-4.0) Albumin/Globulin Ratio 0.6 (0.9-2) Laboratory studies as stated above per my review. Medications Administered Medications (Trade) Dose Ordered Sig/Dominik Route Start Time Stop Time Status Last Admin Dose Admin Sodium Chloride 1,000 ml @ 999 mls/hr Q1H1M STAT IV 04/04/17 14:08 04/04/17 15:08 DC 04/04/17 14:27 999 MLS/HR Cefepime HCl 2000 mg/Dextrose 112.5 ml @ 200 mls/hr NOW STAT IV 04/04/17 14:08 04/04/17 14:41 DC 04/04/17 14:27 200 MLS/HR Acetaminophen (Tylenol Tab) 650 mg NOW STAT PO 04/04/17 14:08 04/04/17 14:10 DC 04/04/17 15:15 650 MG Prochlorperazine Edisylate (Compazine Inj) 5 mg NOW STAT IV 04/04/17 14:44 04/04/17 14:45 DC 04/04/17 15:08 5 MG ED Course 1358: Past medical records reviewed. The patient was evaluated in room B10, and a complete history and physical examination were performed. 1408: Ordered Acetaminophen 650 mg PO, Cefepime HCl 2,000 mg/Dextrose 1000 ml @ 150 mls/hr IV, Sodium Chloride 1000 ml @ 150 mls/hr IV, Sodium Chloride 1000 ml @ 999 mls/hr IV 1444: Ordered Compazine Inj 5 mg IV 1448: The patient is resting comfortably at this time. The charge nurse called the lab for her differential. 1500: I believe she should be evaluated for further management. I am waiting for [facility] to call back to see if she should be evaluated here or there. 1507: I spoke with Dr. Jacoby Allan, at this time and discussed the patient' s case. They are fine with the patient either coming to [facility] or staying here to be evaluated further. 1518: The patient would like to stay here to be evaluated further. 1525: Upon reevaluation, the patient is resting. I discussed the results and treatment plan with the patient. She verbalized agreement of the treatment plan. The patient will be evaluated by Dr. Ree JOYNER, for further management. Medical Decision Differentials include, but are not limited to; sepsis, dehydration, viral illness, pneumonia, and complication related to ovarian cancer. Medication Reconciliation: I attest that I have personally reviewed the patient' s current medication list. Blood pressure Screening: Patient was found to be hypotensive. She does not require follow-up. This patient comes in as described above. She apparently has metastatic ovarian cancer has been throwing up and out of fever since last night. She has an ostomy which is had normal output. No hematemesis or blood in her stool. She does have a temperature here. She was given Tylenol. IV access was established 3 gave her 1 L normal saline bolus. She also requested Compazine for nausea and was given 5 mg of Compazine IV. She was given broad-spectrum neutropenic coverage with cefepime 2 g IV. She neutropenic precautions were applied. Chest x-ray does not suggest pneumonia or pulmonary process. She has had a runny nose. She was found to be significantly neutropenic with an ANC of about 90. No definite source at this point. It could be the line. She has declined her a port accessed initially and we did establish a peripheral IV. She is non-hypoxemic. She initially was hypotensive in the 80s however she is very cachectic and has a very low body weight and I suspect runs on the low side to begin when she is also looks dehydrated. She has no significant acute electrolyte or metabolic abnormalities otherwise. Blood cultures have been obtained. With the hydration and her antipyretics. The temperature came down as well as a pulse. She still has some low blood pressure. I did discuss the case with the oncologist at [facility] and she told me that they would be happy to to see her in transfer but they also felt that she was okay to stay here. The patient adamantly wants to stay here she does not make the trip down there and I think is reasonable at this point. Cultures been obtained and at this point her treatment will be hydration and antibiotics. Certainly if anything changes and she can be transferred down for further treatment. I did talk to Dr. Quiñonez , who saw the patient ER and will admit her for these measures. Consults Time Called: 1505 Consulting Physician: Dr. Jacoby Allan Returned Call: [phone] Please see ED course for more information. Additional Consults: Time Called: 1520 Consulted Physician: Dr. Ree JOYNER Returned Call: [phone] Additional Comments: He will be evaluating the patient for further management and care. Impression Primary Impression: Neutropenic fever Additional Impressions: Sepsis Ovarian cancer Critical Care Due to the patient's sepsis and unstable vital signs, I have personally spent greater than 30 minutes of critical care time in the direct management of this patient. This includes bedside care, interpretation of diagnostic studies, and testing, discussion with consultants, patient, and family members, and other required patient management activities. This 30 minutes is in excess of all separately billable procedures. Scribe Attestation The scribe's documentation has been prepared under my direction and personally reviewed by me in its entirety. I confirm that the note above accurately reflects all work, treatment, procedures, and medical decision making performed by me. Departure Information Dispostion Being Evaluated By Hospitalist Referrals No Doctor, Assigned (PCP) Patient Instructions My [facility] Problem Qualifiers
[2017-04-04 14:20] LABS: ALT/SGPT 36 U/L (12-78); AST/SGOT 13 U/L (15-37); BLOOD UREA NITROGEN 13 mg/dl (7-18); BUN/CREATININE RATIO 19.5 (10-20); CALCIUM 9.1 mg/dl (8.5-10.1); CARBON DIOXIDE 26 mmol/L (21-32); CHLORIDE 98 mmol/L (98-107); CREATININE 0.68 mg/dl (0.60-1.20); GLUCOSE 124 mg/dl (70-99); POTASSIUM 3.5 mmol/L (3.5-5.1); SODIUM 135 mmol/L (136-145)
[2017-04-04 14:22] LABS: MEAN CELL VOLUME 85.6 fL (80-100); MEAN CORPUSCULAR HEMOGLOBIN 28.7 pg (25-34); MEAN CORPUSCULAR HGB CONC 33.5 g/dl (32-36); MEAN PLATELET VOLUME 9.7 fL (7.4-10.4); PLATELET COUNT 105 K/uL (130-400); RED BLOOD COUNT 3.62 M/uL (4.2-5.4); WHITE BLOOD COUNT 2.14 K/uL (4.8-10.8)
[2017-04-04 14:23] LABS: ALB/GLOB RATIO 0.6 (0.9-2); ALKALINE PHOSPHATASE 526 U/L (45-117)
--- NOTE | 2017-04-04 14:28 | DIAGNOSTIC IMAGING REPORT ---
CHEST ONE VIEW PORTABLE CLINICAL HISTORY: CHEST PAIN dyspnea COMPARISON STUDY: 02/11/2017 FINDINGS: Central catheter in superior vena cava. The lungs are clear. Diaphragms are smooth. IMPRESSION: No acute process. The above report was generated using voice recognition software. It may contain grammatical, syntax or spelling errors. Electronically signed by: Jonatan Jauregui M.D. 04/04/2017 2:27 PM Dictated Date/Time: 04/04/2017 2:27 PM
[2017-04-04] MEDS ORDERED: PROCHLORPERAZINE 5 MG/ML 2 ML VIAL IV STA (14:44)
[2017-04-04 14:52] LABS: GIANT PLATELETS 1+
[2017-04-04 14:54] LABS: COMPLETE YES; EOSINOPHIL % 0.9 %; LYMPH ABS # 1.15 K/uL (1.2-3.4); LYMPHOCYTE % 53.9 %; NEUTROPHILS % 4.3 %
[2017-04-04 15:53] VITALS: O2SAT 98; Ht 162.6 cm; Wt 39.8 kg
[2017-04-04] MEDS ORDERED: ACETAMINOPHEN 325 MG TAB PO PRN (16:00)
[2017-04-04] MEDS ORDERED: ZOLPIDEM TARTRATE 5 MG TAB PO PRN (16:00)
[2017-04-04] MEDS ORDERED: POLYETHYLENE (MIRALAX) 17 GM PACK PO PRN (16:00)
[2017-04-04] MEDS ORDERED: MAGNESIUM HYDROXIDE SUSP 30 ML UDC PO PRN (16:00)
[2017-04-04] MEDS ORDERED: ALUMINUM/MAGNESIUM/SIMETH (MAALOX MAX) 30 ML UDC PO PRN (16:00)
[2017-04-04] MEDS ORDERED: PROCHLORPERAZINE MALEATE 10 MG TAB PO PRN (16:00)
[2017-04-04] MEDS ORDERED: MoRPHine SULFATE 4 MG/ML 1 ML CARP\\VIAL IV PRN (16:00)
[2017-04-04] MEDS ORDERED: VANCOMYCIN CONSULT ACTIVE PRN (16:30)
[2017-04-04] MEDS ORDERED: CEFEPIME CONSULT ACTIVE PRN ×2 (16:30)
--- NOTE | 2017-04-04 16:42 | History and Physical ---
History & Physical Date & Time of Service: Apr 04, 2017 at 16:04 Chief Complaint: Vomiting,Fever Primary Care Physician: No Doctor, Assigned History of Present Illness Source: patient, family, hospital records 21 y/o F with active metastatic ovarian CA. She is undergoing chemotherapy at [facility] and received her last cycle on 04/02, accessing a port in her R chest. The pt presents with fevers, nausea and vomiting x 1 day. She denies abdominal pain, a cough, headache, dysuria. She has a colostomy owing to debulking surgery and denies any change in her colostomy output. The pt was admitted 02/03 with similar complaints. Blood cultures at that time returned + for Cellulomonas which is normally a venous catheter-related infection. She then had a transthoracic echo which revealed an atrial mass determined to be a thrombus rather than an infection. At that point she was transferred to [facility] for further treatment. She has been on Lovenox since then. She states that she was treated for the bacteremia without replacing her port. Past Medical/Surgical History 1) Metastatic ovarian CA 2) Atrial thrombus 02/03 3) Neutropenic fever 02/03 - Gram + bacteremia - Cellulomonas sp. 4) Colostomy placed due to metastasis and debulking surgery Family History Hypertension Parents alive and well Social History Hails from [place] - studying [employer] science and engineering at [employer] Smoking Status: Never Smoker Smokeless Tobacco Use: No Drug Use: none Marital Status: in relationship Occupational Status: [employer] student Allergies Coded Allergies: No Known Allergies (Unverified , 01/26/17) Home Medications Scheduled PRN Acetaminophen (Tylenol), 1,000 MG PO DIRECTED PRN for Fever Prochlorperazine Maleate (Prochlorperazine Maleate), 10 MG PO QID PRN for Nausea Review of Systems Constitutional: + fever, + chills, + sweats, + weight loss, + weakness, + fatigue Eyes: No worsening of vision ENT: No hearing loss, No unusual epistaxis, No nasal symptoms Respiratory: No cough, No sputum, No wheezing Cardiovascular: No chest pain, No orthopnea, No PND Abdomen: + nausea, + vomiting, No pain, No diarrhea Musculoskeletal: No joint pain Genitourinary - Female: No dysuria, No urinary frequency, No urinary urgency Neurologic: No memory loss, No paralysis, No weakness Psychiatric: No depression symptoms Endocrine: No fatigue Hematologic / Lymphatic: No abnormal bleeding/bruising Integumentary: No rash Allergic / Immunologic: No environmental allergies Physical Exam Vital Signs Date Time Temp Pulse Resp B/P (MAP) Pulse Ox O2 Delivery O2 Flow Rate FiO2 04/04/17 15:20 131 04/04/17 15:05 38.1 125 16 88/53 98 Room Air 04/04/17 13:32 37.8 152 20 82/53 97 Room Air General Appearance: WD/WN, no apparent distress, + pertinent finding ( Emaciated young female - depressed affect - no distress) Head: normocephalic Eyes: normal inspection ENT: normal ENT inspection, pharynx normal Neck: supple, no JVD Respiratory/Chest: chest non-tender, lungs clear, normal breath sounds, + pertinent finding (No induration at port site - no pain to palpation) Cardiovascular: no edema, no gallop, no JVD, + tachycardia Abdomen/GI: normal bowel sounds, non tender, soft, + pertinent finding (No inflammation at colostomy site - contains brown stool) Back: normal inspection Extremities/Musculoskelatal: normal inspection, no calf tenderness, normal capillary refill 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, no motor/sensory deficits, alert Skin: normal color, warm/dry, no rash Diagnostics Laboratory Results Results Past 24 Hours Test 04/04/17 13:50 Range/Units White Blood Count 2.14 4.8-10.8 K/uL Red Blood Count 3.62 4.2-5.4 M/uL Hemoglobin 10.4 12.0-16.0 g/dL Hematocrit 31.0 37-47 % Mean Corpuscular Volume 85.6 80-100 fL Mean Corpuscular Hemoglobin 28.7 25-34 pg Mean Corpuscular Hemoglobin Concent 33.5 32-36 g/dl Platelet Count 105 130-400 K/uL Mean Platelet Volume 9.7 7.4-10.4 fL RDW Standard Deviation 44.5 36.4-46.3 fL RDW Coefficient of Variation 14.2 11.5-14.5 % Neutrophils % (Manual) 4.3 % Lymphocytes % (Manual) 53.9 % Monocytes % (Manual) 38.3 % Eosinophils % (Manual) 0.9 % Blast Cells % 2.6 % Neutrophils # (Manual) 0.09 1.4-6.5 K/uL Total Absolute Neutrophils 0.09 1.4-6.5 K/uL Lymphocytes # (Manual) 1.15 1.2-3.4 K/uL Total Absolute Lymphocytes 1.15 1.2-3.4 K/uL Monocytes # (Manual) 0.82 0.11-0.59 K/uL Eosinophils # (Manual) 0.02 0-0.5 K/uL Blast Cells # 0.06 0-0 K/uL Blood Smear Review Giant Platelets 1+ Sodium Level 135 136-145 mmol/L Potassium Level 3.5 3.5-5.1 mmol/L Chloride Level 98 98-107 mmol/L Carbon Dioxide Level 26 21-32 mmol/L Anion Gap 11.0 3-11 mmol/L Blood Urea Nitrogen 13 7-18 mg/dl Creatinine 0.68 0.60-1.20 mg/dl Estimated GFR () 143.9 Estimated GFR (Non- 124.2 BUN/Creatinine Ratio 19.5 10-20 Random Glucose 124 70-99 mg/dl Calcium Level 9.1 8.5-10.1 mg/dl Total Bilirubin 0.6 0.2-1 mg/dl Aspartate Amino Transf (AST/SGOT) 13 15-37 U/L Alanine Aminotransferase (ALT/SGPT) 36 12-78 U/L Alkaline Phosphatase 526 45-117 U/L Total Protein 7.5 6.4-8.2 gm/dl Albumin 2.9 3.4-5.0 gm/dl Globulin 4.6 2.5-4.0 gm/dl Albumin/Globulin Ratio 0.6 0.9-2 Microbiology Results 04/04/17 Blood Culture, Received Pending 04/04/17 Blood Culture, Received Pending CXR normal Impression Assessment and Plan 21 y/o F with active metastatic ovarian CA. She is undergoing chemotherapy at [facility] and received her last cycle on 04/02, accessing a port in her R chest. The pt presents with fevers, nausea and vomiting x 1 day. She denies abdominal pain, a cough, headache, dysuria. She has a colostomy owing to debulking surgery and denies any change in her colostomy output. 1) Neutropenic fever - previously with similar symptoms and Cellulomonas infection. Will start empirically on Cefepime and Vanc. ID consult requested. She states that she had been treated in January for similar complaints with antibiotics but without port removal. She may need replacement as Cellulomonas is considered a catheter-related infection. She also may need a repeat echo if she does not defervesce in the short term and cultures are again +. 2) Nausea/vomiting - she states that this is not unusual for her and she normally responds to antiemetics - Phenergan or Zofran provided PRN - IVF provided. 3) Metastatic ovarian CA - receiving chemo at [facility] 4) Neutropenia - due to chemo - we may have to consult H/O if this does not improve - trend AM - placed on isolation 5) Atrial thrombus - cont BID Lovenox Her physicians at [facility] had offered to take her as a direct transfer from the ER. The pt prefers to stay here for the time being - can transfer if needed at any time. Full code - full dose Lovenox Total time for this admit including review of labs, meds, imaging, records - discussion with pt, mother, ER attending - 40 min Level of Care Telemetry Advanced Directives Existing Living Will: No Existing Power of Openstack Cloud Consulting Architect: No Resuscitation Status FULL RESUSCITATION VTE Prophylaxis VTE Risk Assessment Done? Y/N: Yes Risk Level: High Given or contraindicated: Enoxaparin (Lovenox)SQ
--- NOTE | 2017-04-04 16:47 | Pharmacy Progress Note ---
Pharmacy Antibiotic Consult Date of Service: Apr 04, 2017. Pharmacy Dosing Scope Pharmacy is consulted to initiate VANC/CEFEPIME-IV dosing therapy, order appropriate labs and adjust drug dose/frequency. Subjective The patient is a 21 year old female admitted with bacteremia. Pertinent PMH: College student, low body weight, history ovarian CA with mets liver/colon, on chemo/immunocompromised Objective Height (Feet): 5 Height (Inches): 4.00 Weight (Kilograms): 42.700 Lab Results (24hrs): Test 04/04/17 13:50 White Blood Count 2.14 K/uL (4.8-10.8) Red Blood Count 3.62 M/uL (4.2-5.4) Hemoglobin 10.4 g/dL (12.0-16.0) Hematocrit 31.0 % (37-47) Mean Corpuscular Volume 85.6 fL (80-100) Mean Corpuscular Hemoglobin 28.7 pg (25-34) Mean Corpuscular Hemoglobin Concent 33.5 g/dl (32-36) Platelet Count 105 K/uL (130-400) Mean Platelet Volume 9.7 fL (7.4-10.4) RDW Standard Deviation 44.5 fL (36.4-46.3) RDW Coefficient of Variation 14.2 % (11.5-14.5) Neutrophils % (Manual) 4.3 % Lymphocytes % (Manual) 53.9 % Monocytes % (Manual) 38.3 % Eosinophils % (Manual) 0.9 % Blast Cells % 2.6 % Neutrophils # (Manual) 0.09 K/uL (1.4-6.5) Total Absolute Neutrophils 0.09 K/uL (1.4-6.5) Lymphocytes # (Manual) 1.15 K/uL (1.2-3.4) Total Absolute Lymphocytes 1.15 K/uL (1.2-3.4) Monocytes # (Manual) 0.82 K/uL (0.11-0.59) Eosinophils # (Manual) 0.02 K/uL (0-0.5) Blast Cells # 0.06 K/uL (0-0) Blood Smear Review Giant Platelets 1+ Sodium Level 135 mmol/L (136-145) Potassium Level 3.5 mmol/L (3.5-5.1) Chloride Level 98 mmol/L (98-107) Carbon Dioxide Level 26 mmol/L (21-32) Anion Gap 11.0 mmol/L (3-11) Blood Urea Nitrogen 13 mg/dl (7-18) Creatinine 0.68 mg/dl (0.60-1.20) Estimated GFR () 143.9 Estimated GFR (Non- 124.2 BUN/Creatinine Ratio 19.5 (10-20) Random Glucose 124 mg/dl (70-99) Calcium Level 9.1 mg/dl (8.5-10.1) Total Bilirubin 0.6 mg/dl (0.2-1) Aspartate Amino Transf (AST/SGOT) 13 U/L (15-37) Alanine Aminotransferase (ALT/SGPT) 36 U/L (12-78) Alkaline Phosphatase 526 U/L (45-117) Total Protein 7.5 gm/dl (6.4-8.2) Albumin 2.9 gm/dl (3.4-5.0) Globulin 4.6 gm/dl (2.5-4.0) Albumin/Globulin Ratio 0.6 (0.9-2) Micro Results: BC x 2 from 04/04/17 pending Assessment & Plan VANC-IV: * Estimated p'kinetics: Vd~0.7L/kg, Ke~0.104hr-1, t1/2 6-8 hours * Loading dose: VANC 1000mg (~25mg/kg) IV X 1 dose then: * Maintenance Dose: VANC 750mg (~17mg/kg) IV every 10 hours. * Goal trough level estimate: between 15 - 20 mcg/mL pending micro. * VANC trough level to be ordered A Css. CEFEPIME: Target dose 1-2 grams IV every 8-12 hours. Received 2 grams in ED, ordered 1 gram q 8 hours for low body weight. Will f/u and adjust prn. Pharmacy will continue to follow and will adjust dose/frequency as necessary. Thank you
[2017-04-04] MEDS ORDERED: VANCOMYCIN INJ 1,000 MG in SODIUM CHLORIDE 0.9% 250ML 250 ML IV ONE (17:00)
[2017-04-04 17:29] VITALS: BP 86/52; PULSE 99; TEMP 37; O2SAT 98
[2017-04-04] MEDS ORDERED: ENOX40IN SQ (17:53)
[2017-04-04 19:52] VITALS: BP 86/51; PULSE 98; TEMP 36.7; O2SAT 97
[2017-04-04] MEDS ORDERED: ENOXAPARIN 1 MG/KG SQ SCH (20:00)
[2017-04-04] MEDS: CEFEPIME IV 1,000 MG in DEXTROSE 5% 100ML 100 ML IV SCH (20:44)
[2017-04-04] MEDS: ENOXAPARIN 40 MG/0.4 ML SYR SQ SCH (20:47)
[2017-04-04 21:08] LABS: MANUAL MICROSCOPIC REQUIRED? NO; REVIEW REQ? YES; URINE APPEARANCE CLOUDY (CLEAR); URINE BILIRUBIN NEG (NEG); URINE COLOR DK YELLOW; URINE EPITHELIAL CELL AUTO >30 /lpf (0-5); URINE NITRITE NEG (NEG); URINE SPECIFIC GRAVITY 1.031 (1.000-1.030); UROBILINOGEN NEG (NEG); ZZURINE CULT IF INDIC CATH NO
[2017-04-04 21:18] LABS: URINE PATH CASTS 1-5 GRANULAR CASTS /lpf (0)
[2017-04-04] MEDS: ONDANSETRON INJ 2 MG/ML 2 ML VIAL IV PRN (21:45)
[2017-04-04 23:40] VITALS: BP 90/56; PULSE 112; TEMP 37.5; O2SAT 99
[2017-04-05] VITALS (12 sets, daily range): BP systolic 91–100; BP diastolic 53–66; PULSE 105–114; TEMP 36.9–37.5; O2SAT 98
[2017-04-05] MEDS: VANCOMYCIN INJ 750 MG in SODIUM CHLORIDE 0.9% 250ML 250 ML IV SCH ×3 (04:07→23:36)
[2017-04-05] MEDS: CEFEPIME IV 1,000 MG in DEXTROSE 5% 100ML 100 ML IV SCH ×3 (06:25→21:52)
[2017-04-05 07:44] LABS: HEMATOCRIT 23.8 % (37-47); MEAN CELL VOLUME 87.2 fL (80-100); MEAN CORPUSCULAR HEMOGLOBIN 29.3 pg (25-34); MEAN CORPUSCULAR HGB CONC 33.6 g/dl (32-36); MEAN PLATELET VOLUME 9.8 fL (7.4-10.4); PLATELET COUNT 105 K/uL (130-400); RED BLOOD COUNT 2.73 M/uL (4.2-5.4); WHITE BLOOD COUNT 2.85 K/uL (4.8-10.8)
[2017-04-05] MEDS: ENOXAPARIN 40 MG/0.4 ML SYR SQ SCH ×2 (07:49→19:56)
[2017-04-05 08:20] LABS: BUN/CREATININE RATIO 13.3 (10-20); CALCIUM 8.2 mg/dl (8.5-10.1); CREATININE 0.61 mg/dl (0.60-1.20); POTASSIUM 2.9 mmol/L (3.5-5.1)
--- NOTE | 2017-04-05 09:01 | Family Medicine Progress Note ---
Progress Note Date of Service Apr 05, 2017. Subjective Pt evaluation today including: conversation w/ patient, physical exam, chart review, lab review Pain: denies pain Voiding: no voiding problems 21-year-old female with metastatic ovarian cancer status post debulking surgery currently undergoing chemotherapy, currently on Lovenox for atrial thrombus presented to the ER with complaints of fevers, nausea and vomiting that started 1 day prior to arrival. no fevers overnight. denies any cough/ sputum/N/V/abdominal pain. insists that she wants to go home Constitutional: No fever, No chills Eyes: No worsening of vision ENT: No hearing loss Respiratory: No cough, No sputum, No shortness of breath Cardiovascular: No chest pain Breast: No breast lump Abdomen: No pain, No nausea, No vomiting Musculoskeletal: No joint pain Female : No dysuria, No urinary frequency Neurologic: No memory loss Psychiatric: No depression symptoms Heme: No abnormal bleeding/bruising Endo: No fatigue Medications Current Inpatient Medications Medications (Trade) Dose Ordered Sig/Dominik Route Start Time Stop Time Status Last Admin Dose Admin Cefepime HCl 1000 mg/Dextrose 111.3 ml @ 200 mls/hr Q8@0600,1400,2200 IV 04/04/17 22:00 04/18/17 21:59 04/05/17 06:25 200 MLS/HR Vancomycin HCl 750 mg/Sodium Chloride 265 ml @ 125 mls/hr Q10H IV 04/05/17 04:00 04/18/17 03:59 04/05/17 04:07 125 MLS/HR Acetaminophen (Tylenol Tab) 650 mg Q4H PRN PO 04/04/17 16:00 05/04/17 15:59 Al Hydrox/Mg Hydrox/Simethicone (Maalox Max Susp) 15 ml Q4H PRN PO 04/04/17 16:00 05/04/17 15:59 Magnesium Hydroxide (Milk Of Magnesia Susp) 30 ml Q12H PRN PO 04/04/17 16:00 05/04/17 15:59 Zolpidem Tartrate (Ambien Tab) 5 mg HSZ PRN PO 04/04/17 16:00 05/04/17 15:59 Ondansetron HCl (Zofran Inj) 4 mg Q6H PRN IV 04/04/17 16:00 05/04/17 15:59 04/04/17 21:45 4 MG Polyethylene (Miralax Powder Packet) 17 gm DAILY PRN PO 04/04/17 16:00 05/04/17 15:59 Prochlorperazine Maleate (Compazine Tab) 10 mg QID PRN PO 04/04/17 16:00 05/04/17 15:59 Morphine Sulfate (MoRPHine SULFATE INJ) 3 mg Q3H PRN IV 04/04/17 16:00 04/18/17 15:59 Cefepime HCl (Consult) 1 ea UD PRN N/A 04/04/17 16:30 05/04/17 16:29 Vancomycin HCl (Consult) 1 ea UD PRN N/A 04/04/17 16:30 05/04/17 16:29 Enoxaparin Sodium (Lovenox Inj) 40 mg Q12H SQ 04/04/17 20:00 05/04/17 19:59 04/05/17 07:49 40 MG Potassium Chloride (Klor-Con Tab) 40 meq NOW PO 04/05/17 09:00 05/05/17 08:59 UNV Objective Vital Signs Date Time Temp Pulse Resp B/P (MAP) Pulse Ox O2 Delivery O2 Flow Rate FiO2 04/05/17 08:00 98 Room Air 04/05/17 07:39 37.2 113 20 95/59 (71) 98 Room Air 04/05/17 04:29 37.5 114 18 92/53 (66) 98 Room Air 04/05/17 04:00 Room Air 04/05/17 00:01 Room Air 04/04/17 23:40 37.5 112 18 90/56 (67) 99 Room Air 04/04/17 20:00 Room Air 04/04/17 19:52 36.7 98 19 86/51 (63) 97 Room Air 04/04/17 17:29 37.0 99 20 86/52 (63) 98 Room Air 04/04/17 17:05 38.0 102 16 86/55 98 Room Air 04/04/17 15:53 98 Room Air 04/04/17 15:20 131 04/04/17 15:05 38.1 125 16 88/53 98 Room Air 04/04/17 13:32 37.8 152 20 82/53 97 Room Air Physical Exam General Appearance: WD/WN, no apparent distress Eyes: normal inspection ENT: normal ENT inspection Neck: supple Respiratory/Chest: chest non-tender, lungs clear, normal breath sounds, no respiratory distress, no accessory muscle use Cardiovascular: regular rate, rhythm Abdomen: normal bowel sounds, non tender, soft Extremities: normal range of motion, non-tender, normal inspection, no pedal edema Neurologic/Psychiatric: alert, normal mood/affect, oriented x 3 Skin: normal color Laboratory Results 04/05/17 07:27 Test 04/04/17 13:50 04/04/17 20:55 04/05/17 07:27 04/05/17 09:00 Neutrophils % (Manual) 4.3 % Lymphocytes % (Manual) 53.9 % Monocytes % (Manual) 38.3 % Eosinophils % (Manual) 0.9 % Blast Cells % 2.6 % Neutrophils # (Manual) 0.09 K/uL (1.4-6.5) Total Absolute Neutrophils 0.09 K/uL (1.4-6.5) Lymphocytes # (Manual) 1.15 K/uL (1.2-3.4) Total Absolute Lymphocytes 1.15 K/uL (1.2-3.4) Monocytes # (Manual) 0.82 K/uL (0.11-0.59) Eosinophils # (Manual) 0.02 K/uL (0-0.5) Blast Cells # 0.06 K/uL (0-0) Blood Smear Review Giant Platelets 1+ Total Bilirubin 0.6 mg/dl (0.2-1) Aspartate Amino Transf (AST/SGOT) 13 U/L (15-37) Alanine Aminotransferase (ALT/SGPT) 36 U/L (12-78) Alkaline Phosphatase 526 U/L (45-117) Total Protein 7.5 gm/dl (6.4-8.2) Albumin 2.9 gm/dl (3.4-5.0) Globulin 4.6 gm/dl (2.5-4.0) Albumin/Globulin Ratio 0.6 (0.9-2) Urine Color DK YELLOW Urine Appearance CLOUDY (CLEAR) Urine pH 5.0 (4.5-7.5) Urine Specific [place] 1.031 (1.000-1.030) Urine Protein 1+ (NEG) Urine Glucose (UA) NEG (NEG) Urine Ketones TRACE (NEG) Urine Occult Blood NEG (NEG) Urine Nitrite NEG (NEG) Urine Bilirubin NEG (NEG) Urine Urobilinogen NEG (NEG) Urine Leukocyte Esterase NEG (NEG) Urine WBC (Auto) 5-10 /hpf (0-5) Urine RBC (Auto) 5-10 /hpf (0-4) Urine Hyaline Casts (Auto) 10-30 /lpf (0-5) Urine Epithelial Cells (Auto) >30 /lpf (0-5) Urine Bacteria (Auto) NEG (NEG) Urine Renal Epithelial Cells 5-10 /lpf (0-5) Urine Pathogenic Casts 1-5 GRANULAR CASTS /lpf (0) RDW Standard Deviation 46.0 fL (36.4-46.3) RDW Coefficient of Variation 14.5 % (11.5-14.5) Mean Platelet Volume 9.8 fL (7.4-10.4) Anion Gap 7.0 mmol/L (3-11) Est Creatinine Clear Calc Drug Dose 90.9 ml/min Estimated GFR () 149.1 Estimated GFR (Non- 128.7 BUN/Creatinine Ratio 13.3 (10-20) Calcium Level 8.2 mg/dl (8.5-10.1) Assessment and Plan 21-year-old female with metastatic ovarian cancer status post debulking surgery currently undergoing chemotherapy, currently on Lovenox for atrial thrombus presented to the ER with complaints of fevers, nausea and vomiting that started 1 day prior to arrival. Neutropenic fever: - White count at 2.84 - Urine culture positive for gram-positive cocci, blood cultures pending - Currently on vancomycin and cefepime - ID consult-appreciate recommendations - Neutropenic precautions Nausea and vomiting: - Zofran as needed Hypokalemia: K at 2.9, repleted Right atrial thrombus: - Echo ordered to follow up on thrombus first detected in January 2017 - Continue Lovenox twice a day Metastatic ovarian cancer: - Receives chemotherapy at [facility] - Last chemotherapy session 04/02 Full code DVT prophylaxis: Lovenox Disposition: Telemetry, will be transferred to [facility] later tonight History Resident Physician Supervision Note: I was present with Dr. Stephen during the history and exam. I discussed the case with the resident and agree with the findings and plan as documented in the note. Any exceptions or clarifications are listed here. Pt resting comfortably in bed. Afebrile today. Chronic abdominal pain is stable (epigastric, nonradiating aching pain). No present urinary complaints. General Appearance: no apparent distress, cachetic Respiratory: chest non-tender, lungs clear, normal breath sounds, no respiratory distress Cardiovascular: normal peripheral pulses, regular rate, rhythm, no edema, no murmur Gastrointestinal: normal bowel sounds, guarding, tenderness Assessment/Plan 21 y/o female w/ h/o metastatic ovarian cancer s/p colonic resection/debulking and recent chemotherapy w/ neutropenic fever Neutropenic fever - likely source urinary - continue cefepime and vanc until C/ S returns. ID aware and onboards 2/2 thrombus on port. Will repeat echocardiogram for status. N/V - improved, PRN antiemetics as noted Neutropenia - improved, will trend and consult hematology if changes Atrial thrombus - continue AC w/ lovenox FULL CODE Pt is in agreement to stay until C/S returns presuming no further input from ID for narrowing of abx and echocardiogram repeat. Resident Tracking Resident Involvement: Resident Care Provided Care Provided: Adult Hospital Medicine
--- NOTE | 2017-04-05 09:31 | Medical Consult ---
Consultation Date of Consultation: Apr 05, 2017. Attending Physician: Gautam Layton MD History of Present Illness admitted with fevers yesterday, started around noon, tmax 38.1. h/o metastatic ovarian cancer, treated at [facility]. was recently admitted in January and found to have one culture + cellulomonas. was transferred to [facility], states she received abx for infection, port remained in place (placed in December). She was found to have low ANC yesterday and was started on IV abx emperically. tolerating well. now afebrile. denies pain at port site, no cough, cp, sob, n/v/d/abd pain, eating well at home. She had echo on last admission showing ? mass, unsure if she had ANIA at [facility]. no repeat echo here yet. She is tearful at times during my exam and is asking to go home because she has difficulty sleeping in hospital. mom present on my exam. All remaining ros reviewed and are negative. Past Medical/Surgical History Medical Problems: (1) Colonic obstruction Status: Acute (2) Dehydration Status: Acute (3) Epigastric pain Status: Acute (4) Fever Status: Acute (5) Lower abdominal pain Status: Acute (6) Metastatic cancer Status: Acute (7) Neutropenic fever Status: Acute (8) Ovarian cancer Status: Chronic (9) Status: Acute (10) Status: Acute (11) Status: Acute (12) Sepsis Status: Acute (13) Urinary tract infection Status: Acute (14) UTI (urinary tract infection) Status: Acute (15) Vaginal discharge Status: Acute (16) Vomiting during Status: Acute Family History Hypertension Social History Smoking Status: Never Smoker Smokeless Tobacco Use: No Drug Use: none Marital Status: in relationship Housing Status: lives with roommate Occupation Status: [employer] student Allergies Coded Allergies: No Known Allergies (Unverified , 01/26/17) Current Inpatient Medications Current Inpatient Medications Medications (Trade) Dose Ordered Sig/Dominik Route Start Time Stop Time Status Last Admin Dose Admin Cefepime HCl 1000 mg/Dextrose 111.3 ml @ 200 mls/hr Q8@0600,1400,2200 IV 04/04/17 22:00 04/18/17 21:59 04/05/17 06:25 200 MLS/HR Vancomycin HCl 750 mg/Sodium Chloride 265 ml @ 125 mls/hr Q10H IV 04/05/17 04:00 04/18/17 03:59 04/05/17 04:07 125 MLS/HR Acetaminophen (Tylenol Tab) 650 mg Q4H PRN PO 04/04/17 16:00 05/04/17 15:59 Al Hydrox/Mg Hydrox/Simethicone (Maalox Max Susp) 15 ml Q4H PRN PO 04/04/17 16:00 05/04/17 15:59 Magnesium Hydroxide (Milk Of Magnesia Susp) 30 ml Q12H PRN PO 04/04/17 16:00 05/04/17 15:59 Zolpidem Tartrate (Ambien Tab) 5 mg HSZ PRN PO 04/04/17 16:00 05/04/17 15:59 Ondansetron HCl (Zofran Inj) 4 mg Q6H PRN IV 04/04/17 16:00 05/04/17 15:59 04/04/17 21:45 4 MG Polyethylene (Miralax Powder Packet) 17 gm DAILY PRN PO 04/04/17 16:00 05/04/17 15:59 Prochlorperazine Maleate (Compazine Tab) 10 mg QID PRN PO 04/04/17 16:00 05/04/17 15:59 Morphine Sulfate (MoRPHine SULFATE INJ) 3 mg Q3H PRN IV 04/04/17 16:00 04/18/17 15:59 Cefepime HCl (Consult) 1 ea UD PRN N/A 04/04/17 16:30 05/04/17 16:29 Vancomycin HCl (Consult) 1 ea UD PRN N/A 04/04/17 16:30 05/04/17 16:29 Enoxaparin Sodium (Lovenox Inj) 40 mg Q12H SQ 04/04/17 20:00 05/04/17 19:59 04/05/17 07:49 40 MG Potassium Chloride (Klor-Con Tab) 40 meq NOW PO 04/05/17 09:00 05/05/17 08:59 UNV Physical Exam Date Time Temp Pulse Resp B/P (MAP) Pulse Ox O2 Delivery O2 Flow Rate FiO2 04/05/17 08:00 98 Room Air 04/05/17 07:39 37.2 113 20 95/59 (71) 98 Room Air 04/05/17 04:29 37.5 114 18 92/53 (66) 98 Room Air 04/05/17 04:00 Room Air 04/05/17 00:01 Room Air 04/04/17 23:40 37.5 112 18 90/56 (67) 99 Room Air 04/04/17 20:00 Room Air 04/04/17 19:52 36.7 98 19 86/51 (63) 97 Room Air 04/04/17 17:29 37.0 99 20 86/52 (63) 98 Room Air 04/04/17 17:05 38.0 102 16 86/55 98 Room Air 04/04/17 15:53 98 Room Air 04/04/17 15:20 131 04/04/17 15:05 38.1 125 16 88/53 98 Room Air 04/04/17 13:32 37.8 152 20 82/53 97 Room Air General Appearance: WD/WN, no apparent distress Head: normocephalic, atraumatic Eyes: normal inspection, EOMI ENT: pharynx normal Neck: supple Respiratory/Chest: chest non-tender, lungs clear, normal breath sounds, no respiratory distress Cardiovascular: regular rate, rhythm, no edema, no murmur Abdomen/GI: soft Extremities/Musculoskelatal: no pedal edema Neurologic/Psych: alert, oriented x 3 Skin: normal color, warm/dry, no rash, + pertinent finding (port without erythema, edema, induration, warmth, tendenrss) Laboratory Results Last 24 Hours Test 04/04/17 13:50 04/04/17 20:55 04/05/17 07:27 04/05/17 09:00 White Blood Count 2.14 K/uL 2.85 K/uL Red Blood Count 3.62 M/uL 2.73 M/uL Hemoglobin 10.4 g/dL 8.0 g/dL Hematocrit 31.0 % 23.8 % Mean Corpuscular Volume 85.6 fL 87.2 fL Mean Corpuscular Hemoglobin 28.7 pg 29.3 pg Mean Corpuscular Hemoglobin Concent 33.5 g/dl 33.6 g/dl Platelet Count 105 K/uL 105 K/uL Mean Platelet Volume 9.7 fL 9.8 fL RDW Standard Deviation 44.5 fL 46.0 fL RDW Coefficient of Variation 14.2 % 14.5 % Neutrophils % (Manual) 4.3 % Lymphocytes % (Manual) 53.9 % Monocytes % (Manual) 38.3 % Eosinophils % (Manual) 0.9 % Blast Cells % 2.6 % Neutrophils # (Manual) 0.09 K/uL Total Absolute Neutrophils 0.09 K/uL Lymphocytes # (Manual) 1.15 K/uL Total Absolute Lymphocytes 1.15 K/uL Monocytes # (Manual) 0.82 K/uL Eosinophils # (Manual) 0.02 K/uL Blast Cells # 0.06 K/uL Blood Smear Review Giant Platelets 1+ Sodium Level 135 mmol/L 130 mmol/L Potassium Level 3.5 mmol/L 2.9 mmol/L Chloride Level 98 mmol/L 97 mmol/L Carbon Dioxide Level 26 mmol/L 26 mmol/L Anion Gap 11.0 mmol/L 7.0 mmol/L Blood Urea Nitrogen 13 mg/dl 8 mg/dl Creatinine 0.68 mg/dl 0.61 mg/dl Estimated GFR () 143.9 149.1 Estimated GFR (Non- 124.2 128.7 BUN/Creatinine Ratio 19.5 13.3 Random Glucose 124 mg/dl 123 mg/dl Calcium Level 9.1 mg/dl 8.2 mg/dl Total Bilirubin 0.6 mg/dl Aspartate Amino Transf (AST/SGOT) 13 U/L Alanine Aminotransferase (ALT/SGPT) 36 U/L Alkaline Phosphatase 526 U/L Total Protein 7.5 gm/dl Albumin 2.9 gm/dl Globulin 4.6 gm/dl Albumin/Globulin Ratio 0.6 Urine Color DK YELLOW Urine Appearance CLOUDY Urine pH 5.0 Urine Specific [place] 1.031 Urine Protein 1+ Urine Glucose (UA) NEG Urine Ketones TRACE Urine Occult Blood NEG Urine Nitrite NEG Urine Bilirubin NEG Urine Urobilinogen NEG Urine Leukocyte Esterase NEG Urine WBC (Auto) 5-10 /hpf Urine RBC (Auto) 5-10 /hpf Urine Hyaline Casts (Auto) 10-30 /lpf Urine Epithelial Cells (Auto) >30 /lpf Urine Bacteria (Auto) NEG Urine Renal Epithelial Cells 5-10 /lpf Urine Pathogenic Casts 1-5 GRANULAR CASTS /lpf Est Creatinine Clear Calc Drug Dose 90.9 ml/min Assessment & Plan (1) Neutropenic fever Assessment & Plan: continue abx, follow cultures. will need repeat echo and ? transfer if + follow counts. . will follow.
[2017-04-05] MEDS ORDERED: POTASSIUM CHLORIDE 20 MEQ TABCR PO ONE (10:30)
[2017-04-05 11:20] LABS: COMPLETE YES; EOSINOPHIL % 3.5 %; LYMPH ABS # 1.29 K/uL (1.2-3.4); LYMPHOCYTE % 45.2 %; MYELOCYTE % 0.9 %; NEUTROPHILS % 22.6 %
--- NOTE | 2017-04-05 15:18 | Medical Student: [facility] ---
Med Student Progress Note Date of Service Apr 05, 2017. Subjective Pt evaluation today including: conversation w/ patient, physical exam, chart review, lab review Pain: none Voiding: no voiding problems No acute events overnight. Denies fever, chills, nausea, vomiting, abdominal pain since yesterday evening on admission. Feeling well overall. Wants to go home. Does not like the food here and complains of poor sleep in the hospital. Review of Systems Constitutional: + fatigue, No fever, No chills, No sweats ENT: No nasal symptoms, No sore throat Respiratory: No cough, No sputum Cardiac: No chest pain, No edema, No palpitations Abdomen: No pain, No nausea, No vomiting, No diarrhea Female : No dysuria, No urinary frequency Heme: No abnormal bleeding/bruising, No night sweats Objective Vital Signs Date Time Temp Pulse Resp B/P (MAP) Pulse Ox O2 Delivery O2 Flow Rate FiO2 04/05/17 04:29 37.5 114 18 92/53 (66) 98 Room Air 04/05/17 04:00 Room Air 04/05/17 00:01 Room Air 04/04/17 23:40 37.5 112 18 90/56 (67) 99 Room Air 04/04/17 20:00 Room Air 04/04/17 19:52 36.7 98 19 86/51 (63) 97 Room Air 04/04/17 17:29 37.0 99 20 86/52 (63) 98 Room Air 04/04/17 17:05 38.0 102 16 86/55 98 Room Air 04/04/17 15:53 98 Room Air 04/04/17 15:20 131 04/04/17 15:05 38.1 125 16 88/53 98 Room Air 04/04/17 13:32 37.8 152 20 82/53 97 Room Air Physical Exam General Appearance: no apparent distress, + thin Eyes: bilateral eyes PERRL, bilateral eyes EOMI Neck: supple, no adenopathy Respiratory/Chest: chest non-tender, lungs clear, normal breath sounds, + pertinent finding (port in right chest, site clean/dry/intact and nontender) Cardiovascular: regular rate, rhythm, no edema, no gallop, no murmur Abdomen: normal bowel sounds, soft, + pertinent finding (ostomy bag mid abdomen , site clean/dry and nontender) Extremities: normal inspection, no pedal edema, no calf tenderness Neurologic/Psychiatric: alert, oriented x 3, + depressed affect Skin: normal color, warm/dry Laboratory Results Last 24 Hours Test 04/04/17 13:50 04/04/17 20:55 04/05/17 07:27 White Blood Count 2.14 K/uL 2.85 K/uL Red Blood Count 3.62 M/uL 2.73 M/uL Hemoglobin 10.4 g/dL 8.0 g/dL Hematocrit 31.0 % 23.8 % Mean Corpuscular Volume 85.6 fL 87.2 fL Mean Corpuscular Hemoglobin 28.7 pg 29.3 pg Mean Corpuscular Hemoglobin Concent 33.5 g/dl 33.6 g/dl Platelet Count 105 K/uL 105 K/uL Mean Platelet Volume 9.7 fL 9.8 fL RDW Standard Deviation 44.5 fL 46.0 fL RDW Coefficient of Variation 14.2 % 14.5 % Neutrophils % (Manual) 4.3 % Lymphocytes % (Manual) 53.9 % Monocytes % (Manual) 38.3 % Eosinophils % (Manual) 0.9 % Blast Cells % 2.6 % Neutrophils # (Manual) 0.09 K/uL Total Absolute Neutrophils 0.09 K/uL Lymphocytes # (Manual) 1.15 K/uL Total Absolute Lymphocytes 1.15 K/uL Monocytes # (Manual) 0.82 K/uL Eosinophils # (Manual) 0.02 K/uL Blast Cells # 0.06 K/uL Blood Smear Review Giant Platelets 1+ Sodium Level 135 mmol/L 130 mmol/L Potassium Level 3.5 mmol/L 2.9 mmol/L Chloride Level 98 mmol/L 97 mmol/L Carbon Dioxide Level 26 mmol/L 26 mmol/L Anion Gap 11.0 mmol/L 7.0 mmol/L Blood Urea Nitrogen 13 mg/dl 8 mg/dl Creatinine 0.68 mg/dl 0.61 mg/dl Estimated GFR () 143.9 149.1 Estimated GFR (Non- 124.2 128.7 BUN/Creatinine Ratio 19.5 13.3 Random Glucose 124 mg/dl 123 mg/dl Calcium Level 9.1 mg/dl 8.2 mg/dl Total Bilirubin 0.6 mg/dl Aspartate Amino Transf (AST/SGOT) 13 U/L Alanine Aminotransferase (ALT/SGPT) 36 U/L Alkaline Phosphatase 526 U/L Total Protein 7.5 gm/dl Albumin 2.9 gm/dl Globulin 4.6 gm/dl Albumin/Globulin Ratio 0.6 Urine Color DK YELLOW Urine Appearance CLOUDY Urine pH 5.0 Urine Specific [place] 1.031 Urine Protein 1+ Urine Glucose (UA) NEG Urine Ketones TRACE Urine Occult Blood NEG Urine Nitrite NEG Urine Bilirubin NEG Urine Urobilinogen NEG Urine Leukocyte Esterase NEG Urine WBC (Auto) 5-10 /hpf Urine RBC (Auto) 5-10 /hpf Urine Hyaline Casts (Auto) 10-30 /lpf Urine Epithelial Cells (Auto) >30 /lpf Urine Bacteria (Auto) NEG Urine Renal Epithelial Cells 5-10 /lpf Urine Pathogenic Casts 1-5 GRANULAR CASTS /lpf Est Creatinine Clear Calc Drug Dose 90.9 ml/min Medications Current Inpatient Medications Medications (Trade) Dose Ordered Sig/Dominik Route Start Time Stop Time Status Last Admin Dose Admin Cefepime HCl 1000 mg/Dextrose 111.3 ml @ 200 mls/hr Q8@0600,1400,2200 IV 04/04/17 22:00 04/18/17 21:59 04/05/17 13:38 200 MLS/HR Vancomycin HCl 750 mg/Sodium Chloride 265 ml @ 125 mls/hr Q10H IV 04/05/17 04:00 04/18/17 03:59 04/05/17 14:16 125 MLS/HR Acetaminophen (Tylenol Tab) 650 mg Q4H PRN PO 04/04/17 16:00 05/04/17 15:59 Al Hydrox/Mg Hydrox/Simethicone (Maalox Max Susp) 15 ml Q4H PRN PO 04/04/17 16:00 05/04/17 15:59 Magnesium Hydroxide (Milk Of Magnesia Susp) 30 ml Q12H PRN PO 04/04/17 16:00 05/04/17 15:59 Zolpidem Tartrate (Ambien Tab) 5 mg HSZ PRN PO 04/04/17 16:00 05/04/17 15:59 Ondansetron HCl (Zofran Inj) 4 mg Q6H PRN IV 04/04/17 16:00 05/04/17 15:59 04/04/17 21:45 4 MG Polyethylene (Miralax Powder Packet) 17 gm DAILY PRN PO 04/04/17 16:00 05/04/17 15:59 Prochlorperazine Maleate (Compazine Tab) 10 mg QID PRN PO 04/04/17 16:00 05/04/17 15:59 Morphine Sulfate (MoRPHine SULFATE INJ) 3 mg Q3H PRN IV 04/04/17 16:00 04/18/17 15:59 Cefepime HCl (Consult) 1 ea UD PRN N/A 04/04/17 16:30 05/04/17 16:29 Vancomycin HCl (Consult) 1 ea UD PRN N/A 04/04/17 16:30 05/04/17 16:29 Enoxaparin Sodium (Lovenox Inj) 40 mg Q12H SQ 04/04/17 20:00 05/04/17 19:59 04/05/17 07:49 40 MG Assessment and Plan Assessment and Plan: 21 year old female with active metastatic ovarian cancer undergoing chemotherapy at [facility] (last cycle 04/02) presenting with sepsis in the setting of a neutropenic fever. Sepsis criteria met by SIRS x2 plus source with positive urine culture for gram + cocci. Also meets SOFA criteria with tachycardia and platelets of 105. Currently being treated empirically with cefepime and vancomycin. Improving clinically and WBC increasing. Neutropenic fever/Sepsis secondary to UTI - prior admission 02/03 in [facility] with Cellulomonas bacteremia, likely due to catheter related infection but port was not removed; had been afebrile until this admission - afebrile since 02/02 at 5pm (38.0) - CXR not suggestive of pulmonary process, Blood cultures x2 pending - UA negative but positive UCx for gram+ cocci - Continue empiric tx with Cefepime and Vanc, Vanc trough ordered for prior to 4th dose; will consider deescalating abx when sensitivities return - ANC 90 on admission, 640 this AM - trend CBC with diff qAM - ID consulted - consider hemo/onc consult if counts do not improve Anemia - Hgb 10.4 on admission, 8.0 this AM - stool occult blood negative - possible dilutional anemia s/p 2L IVF; could also be anemia of chronic disease or iron deficiency but less likely since normocytic Atrial thrombus - cont BID Lovenox - will repeat TTE to assess for any change and possible bacteremia/endocarditis as we would have to treat with a longer course of antibiotics Hypokalemia - K 2.9, given 40mEq KCL - trend BMP qAM Nausea/vomiting - Compazine and Zofran PRN - s/p 2L IV NS for dehydration Insomnia - Ambien PRN FEN: Regular diet PPX: Lovenox Dispo: Her physicians at [facility] had offered to take her as a direct transfer from the ER. The pt prefers to stay here for the time being - can transfer if needed at any time. FULL CODE
--- NOTE | 2017-04-05 15:30 | ECHOCARDIOGRAM REPORT ---
*NOTICE TO RECEIVING [employer] This information is strictly Confidential and protected under [place] law. [place] law prohibits you from making any further disclosure of this information unless further disclosure is expressly permitted by the written consent of the person to whom it pertains or is authorized by law. A general authorization for the release of medical or other information is not sufficient for this purpose. Hospital accepts no responsibility if the information is made available to any other person, INCLUDING THE PATIENT. Interpretation Summary * Name: JORDAN GONZALES Study Date: 04/05/2017 02:33 PM BP: 91/57 mmHg * Patient Location: C.2T\S\S236\S\1 HR: 106 * : 1995 (M/d/yyyy) Gender: Female Height: 64 in * Age: 21 yrs Ethnicity: Weight: 87 lb * Ordering Physician: Brigitte Stephen * Performed By: Ann Marie Juarez * * Reason For Study: FOLLOW UP- CARDIAC TUMORS/ MASSES * BSA: 1.4 m2 * -- Conclusions -- * Limited views were obtained. * Left ventricular systolic function is normal. 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 * Compared to a study from 01/2017, and taking in to account the difference in technique, there may be a small devrease in the size of tamara RA mass. Procedure Details * Limited views were obtained. Left Ventricle * The left ventricle is normal in size. * There is normal left ventricular wall thickness. * Left ventricular systolic function is normal. Right Ventricle * The right ventricle is grossly normal size. Atria * The left atrial size is normal. 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 Mitral Valve * The mitral valve is grossly normal. Tricuspid Valve * The tricuspid valve is not well visualized, but is grossly normal. * Significant tricuspid regurgitation is absent. Aortic Valve * The aortic valve is trileaflet. Pericardium/Pleural * There is no pericardial effusion. MMode 2D Measurements and Calculations IVSd 1.2 cm IVSs 1.3 cm LVIDd 3.5 cm LVIDs 2.3 cm LVPWd 0.89 cm LVPWs 1.5 cm IVS/LVPW 1.3 FS 34.7 % EDV(Teich) 50.1 ml ESV(Teich) 17.5 ml EF(Teich) 65.0 % EDV(cubed) 42.0 ml ESV(cubed) 11.7 ml EF(cubed) 72.2 % % IVS thick 11.0 % % LVPW thick 66.5 % LV mass(C)d 108.8 grams LV mass(C)dI 79.2 grams/m\S\2 LV mass(C)s 100.0 grams LV mass(C)sI 72.8 grams/m\S\2 SV(Teich) 32.5 ml SI(Teich) 23.7 ml/m\S\2 SV(cubed) 30.3 ml SI(cubed) 22.1 ml/m\S\2 LA dimension 2.2 cm LVAd ap4 17.7 cm\S\2 LVLd ap4 6.6 cm EDV(MOD-sp4) 40.2 ml EDV(sp4-el) 40.4 ml LVAs ap4 8.6 cm\S\2 LVLs ap4 5.3 cm ESV(MOD-sp4) 11.6 ml ESV(sp4-el) 11.9 ml EF(MOD-sp4) 71.1 % EF(sp4-el) 70.5 % SV(MOD-sp4) 28.6 ml SI(MOD-sp4) 20.8 ml/m\S\2 SV(sp4-el) 28.5 ml SI(sp4-el) 20.7 ml/m\S\2 Doppler Measurements and Calculations TR max cb 178.9 cm/sec
[2017-04-06] MEDS: ONDANSETRON INJ 2 MG/ML 2 ML VIAL IV PRN (00:08)
[2017-04-06 03:39] VITALS: BP 96/62; PULSE 103; TEMP 36.7; O2SAT 98
[2017-04-06] MEDS: CEFEPIME IV 1,000 MG in DEXTROSE 5% 100ML 100 ML IV SCH ×2 (06:28→13:42)
[2017-04-06 07:29] VITALS: BP 92/53; PULSE 96; TEMP 37; O2SAT 98
[2017-04-06] MEDS: ENOXAPARIN 40 MG/0.4 ML SYR SQ SCH (07:41)
--- NOTE | 2017-04-06 08:45 | Medical Student: [facility] ---
Med Student Progress Note Date of Service Apr 06, 2017. Subjective Pt evaluation today including: conversation w/ patient, physical exam Pain: denies Voiding: no voiding problems No acute events overnight. She reports better sleep off the monitor but states the bed is still uncomfortable. Has been eating moms food that she is bringing in which is giving her more energy although she still feels weak. Denies fever , chills, sweats, abdominal pain, dysuria, frequency, urgency. Objective Vital Signs Date Time Temp Pulse Resp B/P (MAP) Pulse Ox O2 Delivery O2 Flow Rate FiO2 04/06/17 07:29 37.0 96 16 92/53 (66) 98 Room Air 04/06/17 03:39 36.7 103 18 96/62 (73) 98 Room Air 04/06/17 00:00 Room Air 04/05/17 23:09 37.2 111 18 96/60 (72) 98 Room Air 98.0 04/05/17 20:56 37.0 110 18 100/66 (77) 98 Room Air 04/05/17 20:22 36.9 106 16 98 04/05/17 20:00 98 Room Air 04/05/17 19:28 36.9 106 16 96/64 (75) 98 Room Air 04/05/17 16:00 98 Room Air 04/05/17 15:55 36.9 105 16 92/57 (69) 98 Room Air 04/05/17 12:00 98 Room Air 04/05/17 11:54 37.0 106 20 91/57 (68) 98 Room Air Laboratory Results Last 24 Hours Test 04/05/17 11:30 04/06/17 07:16 Stool Occult Blood NEGATIVE Medications Current Inpatient Medications Medications (Trade) Dose Ordered Sig/Dominik Route Start Time Stop Time Status Last Admin Dose Admin Cefepime HCl 1000 mg/Dextrose 111.3 ml @ 200 mls/hr Q8@0600,1400,2200 IV 04/04/17 22:00 04/18/17 21:59 04/06/17 06:28 200 MLS/HR Vancomycin HCl 750 mg/Sodium Chloride 265 ml @ 125 mls/hr Q10H IV 04/05/17 04:00 04/18/17 03:59 04/05/17 23:36 125 MLS/HR Acetaminophen (Tylenol Tab) 650 mg Q4H PRN PO 04/04/17 16:00 05/04/17 15:59 Al Hydrox/Mg Hydrox/Simethicone (Maalox Max Susp) 15 ml Q4H PRN PO 04/04/17 16:00 05/04/17 15:59 Magnesium Hydroxide (Milk Of Magnesia Susp) 30 ml Q12H PRN PO 04/04/17 16:00 05/04/17 15:59 Zolpidem Tartrate (Ambien Tab) 5 mg HSZ PRN PO 04/04/17 16:00 05/04/17 15:59 Ondansetron HCl (Zofran Inj) 4 mg Q6H PRN IV 04/04/17 16:00 05/04/17 15:59 04/06/17 00:08 4 MG Polyethylene (Miralax Powder Packet) 17 gm DAILY PRN PO 04/04/17 16:00 05/04/17 15:59 Prochlorperazine Maleate (Compazine Tab) 10 mg QID PRN PO 04/04/17 16:00 05/04/17 15:59 Morphine Sulfate (MoRPHine SULFATE INJ) 3 mg Q3H PRN IV 04/04/17 16:00 04/18/17 15:59 Cefepime HCl (Consult) 1 ea UD PRN N/A 04/04/17 16:30 05/04/17 16:29 Vancomycin HCl (Consult) 1 ea UD PRN N/A 04/04/17 16:30 05/04/17 16:29 Enoxaparin Sodium (Lovenox Inj) 40 mg Q12H SQ 04/04/17 20:00 05/04/17 19:59 04/06/17 07:41 40 MG Assessment and Plan Assessment and Plan: 21 year old female with active metastatic ovarian cancer undergoing chemotherapy at [facility] (last cycle 04/02) presenting with sepsis in the setting of a neutropenic fever. Sepsis criteria met by SIRS x2 plus source with positive urine culture for gram + cocci. Also meets SOFA criteria with tachycardia and platelets of 105. Currently being treated empirically with cefepime and vancomycin. Improving clinically and WBC increasing. Neutropenic fever/Sepsis secondary to UTI - prior admission 02/03 in [place] with Cellulomonas bacteremia, likely due to catheter related infection but port was not removed; had been afebrile until this admission - afebrile since 02/02 at 5pm (38.0) - CXR not suggestive of pulmonary process, Blood cultures x2 pending - UA negative but positive UCx for gram+ cocci - Continue empiric tx with Cefepime and Vanc, Vanc trough ordered for prior to 4th dose; will consider deescalating abx when sensitivities return - ANC 90 on admission, 640 this AM - trend CBC with diff qAM - ID consulted - consider hemo/onc consult if counts do not improve Anemia - Hgb 10.4 on admission, 8.0 this AM - stool occult blood negative - possible dilutional anemia s/p 2L IVF; could also be anemia of chronic disease or iron deficiency but less likely since normocytic Atrial thrombus - cont BID Lovenox - will repeat TTE to assess for any change and possible bacteremia/endocarditis as we would have to treat with a longer course of antibiotics Hypokalemia - K 2.9, given 40mEq KCL - trend BMP qAM Nausea/vomiting - Compazine and Zofran PRN - s/p 2L IV NS for dehydration Insomnia - Ambien PRN FEN: Regular diet PPX: Lovenox Dispo: Her physicians at [facility] had offered to take her as a direct transfer from the ER. The pt prefers to stay here for the time being - can transfer if needed at any time. FULL CODE
[2017-04-06 08:48] LABS: HEMATOCRIT 23.2 % (37-47); MEAN CELL VOLUME 87.2 fL (80-100); MEAN CORPUSCULAR HEMOGLOBIN 29.7 pg (25-34); MEAN CORPUSCULAR HGB CONC 34.1 g/dl (32-36); MEAN PLATELET VOLUME 10.4 fL (7.4-10.4); PLATELET COUNT 148 K/uL (130-400); RED BLOOD COUNT 2.66 M/uL (4.2-5.4)
[2017-04-06 09:07] LABS: BLOOD UREA NITROGEN 7 mg/dl (7-18); CALCIUM 8.4 mg/dl (8.5-10.1); CARBON DIOXIDE 25 mmol/L (21-32); CHLORIDE 98 mmol/L (98-107); CREATININE 0.54 mg/dl (0.60-1.20); GLUCOSE 118 mg/dl (70-99); SODIUM 132 mmol/L (136-145)
[2017-04-06 09:25] LABS: COMPLETE YES; LARGE PLATELETS 1+; LYMPH ABS # 0.45 K/uL (1.2-3.4); LYMPHOCYTE % 8.7 %; META ABS # 0.09 K/uL (0-0); METAMYELOCYTE % 1.7 %; MYELOCYTE % 6.1 %; TOXIC GRANULATION 1+
[2017-04-06] MEDS ORDERED: VANCOMYCIN TROUGH ONE (09:30)
[2017-04-06] MEDS: VANCOMYCIN INJ 750 MG in SODIUM CHLORIDE 0.9% 250ML 250 ML IV SCH (09:52)
[2017-04-06] MEDS: POTASSIUM CHLORIDE 20 MEQ TABCR PO ONE ×2 (09:53→09:54)
--- NOTE | 2017-04-06 10:16 | Progress Note ---
Subjective Date of Service: Apr 06, 2017. Subjective pt has been afebrile since admission. wbc increased to 5.2, no longer neutropenic. urine culture growing e. faecalis, sensitivities pending. UA with no bacteria. asymptomatic. Blood cultures pending. Echo done yesterday, mass still present RA, smaller when compared to 01/2017. No overnight events. Problem List Medical Problems: (1) Colonic obstruction Status: Acute (2) Dehydration Status: Acute (3) Epigastric pain Status: Acute (4) Fever Status: Acute (5) Lower abdominal pain Status: Acute (6) Metastatic cancer Status: Acute (7) Neutropenic fever Status: Acute (8) Ovarian cancer Status: Chronic (9) Status: Acute (10) Status: Acute (11) Status: Acute (12) Sepsis Status: Acute (13) Urinary tract infection Status: Acute (14) UTI (urinary tract infection) Status: Acute (15) Vaginal discharge Status: Acute (16) Vomiting during Status: Acute Objective Vital Signs Date Time Temp Pulse Resp B/P (MAP) Pulse Ox O2 Delivery O2 Flow Rate FiO2 04/06/17 08:00 Room Air 04/06/17 07:29 37.0 96 16 92/53 (66) 98 Room Air 04/06/17 03:39 36.7 103 18 96/62 (73) 98 Room Air 04/06/17 00:00 Room Air 04/05/17 23:09 37.2 111 18 96/60 (72) 98 Room Air 98.0 04/05/17 20:56 37.0 110 18 100/66 (77) 98 Room Air 04/05/17 20:22 36.9 106 16 98 04/05/17 20:00 98 Room Air 04/05/17 19:28 36.9 106 16 96/64 (75) 98 Room Air 04/05/17 16:00 98 Room Air 04/05/17 15:55 36.9 105 16 92/57 (69) 98 Room Air 04/05/17 12:00 98 Room Air 04/05/17 11:54 37.0 106 20 91/57 (68) 98 Room Air Laboratory Results Item Value Date Time Urine Culture - Preliminary Resulted 04/04/172054 Urine , Clean Catch Gram Positive Cocci Urine Culture - Preliminary Resulted 04/04/172054 Urine , Clean Catch Enterococcus Species Last 24 Hours Test 04/05/17 11:30 04/06/17 07:16 Stool Occult Blood NEGATIVE White Blood Count 5.20 K/uL Red Blood Count 2.66 M/uL Hemoglobin 7.9 g/dL Hematocrit 23.2 % Mean Corpuscular Volume 87.2 fL Mean Corpuscular Hemoglobin 29.7 pg Mean Corpuscular Hemoglobin Concent 34.1 g/dl Platelet Count 148 K/uL Mean Platelet Volume 10.4 fL RDW Standard Deviation 46.2 fL RDW Coefficient of Variation 14.5 % Neutrophils % (Manual) 47.0 % Lymphocytes % (Manual) 8.7 % Monocytes % (Manual) 34.8 % Metamyelocytes % 1.7 % Myelocytes % 6.1 % Blast Cells % 1.7 % Neutrophils # (Manual) 2.44 K/uL Total Absolute Neutrophils 2.44 K/uL Lymphocytes # (Manual) 0.45 K/uL Total Absolute Lymphocytes 0.45 K/uL Monocytes # (Manual) 1.81 K/uL Metamyelocytes # 0.09 K/uL Myelocytes # 0.32 K/uL Hypogranular Neutrophils 1+ Blast Cells # 0.09 K/uL Toxic Granulation 1+ Large Platelets 1+ Sodium Level 132 mmol/L Potassium Level 3.0 mmol/L Chloride Level 98 mmol/L Carbon Dioxide Level 25 mmol/L Anion Gap 9.0 mmol/L Blood Urea Nitrogen 7 mg/dl Creatinine 0.54 mg/dl Est Creatinine Clear Calc Drug Dose 102.7 ml/min Estimated GFR () > 150.0 Estimated GFR (Non- 133.9 BUN/Creatinine Ratio 13.0 Random Glucose 118 mg/dl Calcium Level 8.4 mg/dl Vancomycin Level Trough 16.3 mcg/ml Assessment and Plan (1) Neutropenic fever Assessment & Plan: resolved. continue to follow cultures, if blood cultures negative, will narrow therapy. continue cefepime for now pending blood culture results. (2) UTI (urinary tract infection) due to Enterococcus Assessment & Plan: continue vanco, await sensitivity, hopefully can narrow tomorrow. UA negative but with neutropenia on arrival will treat. follow blood cultures as well. If sensitive to amox, will changed to po amox. follow final results.
--- NOTE | 2017-04-06 10:46 | Pharmacy Progress Note ---
Pharmacy Abx Dose Progress Nt Date of Service Apr 06, 2017. Pharmacy Dosing Scope The patient is currently receiving the following antimicrobial agents per Pharmacy consult: Vancomycin 750mg mg IV every 10 hours & Cefepime 1,000mg IV Q8hrs Objective Height (Feet): 5 Height (Inches): 4.00 Weight (Kilograms): 39.800 Vital Signs (Past 12Hrs) Vital Signs Past 12 Hours Date Time Temp Pulse Resp B/P (MAP) Pulse Ox O2 Delivery O2 Flow Rate FiO2 04/06/17 08:00 Room Air 04/06/17 07:29 37.0 96 16 92/53 (66) 98 Room Air 04/06/17 03:39 36.7 103 18 96/62 (73) 98 Room Air 04/06/17 00:00 Room Air 04/05/17 23:09 37.2 111 18 96/60 (72) 98 Room Air 98.0 Lab Results (24Hrs) Laboratory Tests (24 Hours) Test 04/06/17 07:16 White Blood Count 5.20 K/uL (4.8-10.8) Red Blood Count 2.66 M/uL (4.2-5.4) L Hemoglobin 7.9 g/dL (12.0-16.0) L Hematocrit 23.2 % (37-47) L Mean Corpuscular Volume 87.2 fL (80-100) Mean Corpuscular Hemoglobin 29.7 pg (25-34) Mean Corpuscular Hemoglobin Concent 34.1 g/dl (32-36) Platelet Count 148 K/uL (130-400) Mean Platelet Volume 10.4 fL (7.4-10.4) Micro Results Date/Time Source Procedure Growth Status 04/04/17 14:20 Blood Blood Culture Pending Received 04/04/17 13:50 Blood Blood Culture Pending Received 04/04/17 20:55 Urine , Clean Catch Urine Culture - Preliminary Enterococcus Species Resulted Risk Factors for Resistance * Hospitalization for 48 hours or more within the past 90 days * Immunocompromised (chronic steroid therapy, chemotherapy, immunomodulators) * History of infection with a multidrug-resistant organism * Antimicrobial use within the last 90 days Assessment & Plan Assessment 21 year old female receiving Vanco IV + Cefepime for treatment of bacteremia/ UTI Day # 3 of antimicrobial therapy Urine cultures growing enterococcus --> further speciation/sensitivities pending Plan Vancomycin IV * Trough level today was drawn 3 hrs early. Appears in range at 16.3 mcg/mL but is likely sub-therapeutic * Change to Vancomycin 750 mg IV every 8 hours * Goal trough level for bacteremia : 15 to 20 mcg/mL * Repeat Trough level ordered for: 04/08/17 @ 0200 Cefepime * Continue cefepime 1,000mg IV Q8hrs Pharmacy will continue to follow and will adjust dose/frequency as necessary. Thank you.
[2017-04-06 11:31] VITALS: BP 94/55; PULSE 100; TEMP 36.9; O2SAT 99
[2017-04-06] MEDS: POTASSIUM CHLR 10 MEQ / WTR 10 MEQ in PREMIXED WATER 100 ML IV SCH ×3 (13:46→14:30)
[2017-04-06] MEDS ORDERED: NURSING VERBAL MED ORDER ONE (14:30)
[2017-04-06] MEDS ORDERED: POTASSIUM CHLORIDE 20 MEQ TABCR PO STA (14:32)
--- NOTE | 2017-04-06 14:58 | Discharge Instructions ---
Discharge Instructions Date of Service Apr 06, 2017. Admission Reason for Admission: Neutropenic Fever Discharge Discharge Diagnosis / Problem: UTI/NEUTROPENIC FEVER Discharge Goals Goal(s): Decrease discomfort, Improve function Activity Recommendations Activity Limitations: resume your previous activity . Instructions / Follow-Up Instructions / Follow-Up You were admitted with fever and decreased white count and found to have a urinary tract infection. You were treated with IV antibiotics and have now been switched to by mouth antibiotics Urinary tract infection amoxicillin 500 mg twice daily for 10 days. Nausea and vomiting You may Zofran as needed for nausea or vomiting Right atrial thrombus. - continue to use Lovenox twice daily for the blood clot in your heart Please follow up with your PCP in the next 2-3 days Follow-up with oncology department at [facility] for chemotherapy as scheduled Current Hospital Diet Patient's current hospital diet: Regular Diet Discharge Diet Recommended Diet: Regular Diet Pending Studies Studies pending at discharge: no Medical Emergencies . Who to Call and When: Medical Emergencies: If at any time you feel your situation is an emergency, please call 911 immediately. . Non-Emergent Contact Non-Emergency issues call your: Primary Care Provider Call Non-Emergent contact if: you have a fever . . "Provider Documentation" section prepared by Brigitte Stephen. . VTE Core Measure Inpt VTE Proph given/why not?: Enoxaparin (Lovenox)SQ
[2017-04-06 15:00] VITALS: BP 94/55; PULSE 100; TEMP 36.9; O2SAT 99
[2017-04-06] MEDS ORDERED: AMOX500C3 PO (15:00)
--- NOTE | 2017-04-06 15:07 | Discharge Summary ---
Discharge Summary Date of Service Apr 06, 2017. (Brigitte Stephen MD) Discharge Summary Admission Date: Apr 04, 2017 at 16:04 Discharge Date: Apr 06, 2017 Discharge Disposition: Home Principal Diagnosis: neutropenic fever secondary to UTI Problems/Secondary Diagnoses: (1) Ovarian cancer Status: Chronic Consultations: Infectious diseases (Brigitte Stephen MD) Medication Reconciliation New Medications: Amoxicillin (Amoxil) 500 Mg Cap 1 CAP PO TID for 10 Days, #30 CAP Continued Medications: Acetaminophen (Tylenol) 500 Mg Tab 1000 MG PO DIRECTED PRN for Fever, TAB Enoxaparin (Lovenox) 40 Mg/0.4 Ml Inj 40 MG SQ Q12H, SYR Prochlorperazine Maleate (Prochlorperazine Maleate) 10 Mg Tab 10 MG PO QID PRN for Nausea, #100 Discharge Exam Afebrile. Denies any nausea, vomiting, abdominal pain Review of Systems: Constitutional: No fever, No chills Eyes: No worsening of vision ENT: No hearing loss Respiratory: No cough, No sputum Cardiovascular: No chest pain Abdomen: No pain, No nausea Musculoskeletal: No joint pain Genitourinary - Female: No dysuria Psychiatric: No depression symptoms Endocrine: No fatigue Physical Exam: General Appearance: WD/WN, no apparent distress Eyes: normal inspection ENT: hearing grossly normal Neck: supple, no adenopathy Respiratory/Chest: chest non-tender, lungs clear, normal breath sounds Cardiovascular: regular rate, rhythm Abdomen / GI: normal bowel sounds, non tender, soft Extremities: no pedal edema Skin: normal color (Brigitte Stephen MD) Hospital Course 21-year-old female with past medical history of metastatic ovarian cancer currently undergoing chemotherapy at [facility], history of right atrial thrombus currently on Lovenox presented to the ER with complaints of nausea/vomiting and fever. In the ER, was found to be neutropenic, ANC of 0.09 She was admitted and treated with broad-spectrum antibiotics including vancomycin and cefepime. Blood cultures and urine cultures were drawn and infectious disease was consulted. Urine culture came back positive for pansensitive enterococcus and IV antibiotics were switched to amoxicillin 500 mg 3 times a day for 10 days. She also had a transthoracic echo to review her right atrial thrombus which seemed to have decreased in size. She was recommended to continue Lovenox twice daily. Recommended follow-up with PCP within a week. Recommended to follow-up with oncology at [facility] as scheduled for chemotherapy Total Time Spent: Less than 30 minutes This includes examination of the patient, discharge planning, medication reconciliation, and communication with other providers. (Brigitte Stephen MD) Discharge Instructions Please refer to the electronic Patient Visit Report (Discharge Instructions) for additional information. (Brigitte Stephen MD) Follow-Up With PCP in about a week (Brigitte Stephen MD) Additional Copies To Brigitte Stephen MD; Juanita Casarez MD Resident Tracking Resident Involvement: Resident Care Provided Care Provided: [facility] (Brigitte Stephen MD) History Resident Physician Supervision Note: I was present with Dr. Stephen during the history and exam. I discussed the case with the resident and agree with the findings and plan as documented in the note. Any exceptions or clarifications are listed here. Improvement in lower abdominal pain today with increased energy. Reports no LAWR[place], lightheadedness, CP/SOB, palpitations, n/v, constipation. (Gautam Layton MD) General Appearance: no apparent distress, cachetic Respiratory: chest non-tender, lungs clear, normal breath sounds, no respiratory distress Cardiovascular: normal peripheral pulses, regular rate, rhythm, no edema, no murmur Gastrointestinal: normal bowel sounds, non tender, soft, no organomegaly, other (ostomy in place w/o erythema) (Gautam Layton MD) Assessment/Plan 21 y/o female w/ h/o metastatic ovarian cancer s/p colonic resection/debulking and recent chemotherapy w/ neutropenic fever Neutropenic fever w/ UTI - transition to amox per recommendations. Repeat TTE shows thrombus with improvement Atrial thrombus - continue lovenox Neutropenia - improved, follow up w/ hematology as scheduled (Gautam Layton MD)
[2017-04-06] MEDS ORDERED: VANCOMYCIN INJ 750 MG in SODIUM CHLORIDE 0.9% 250ML 250 ML IV SCH (18:00)
[2017-04-08] MEDS ORDERED: VANCOMYCIN TROUGH SCH (01:30)
== END 2017-04-06 15:59 | disposition home or self-care (01) | DRG 809 ==
LOC: C.EDB 13:28 → C.2T 16:04 → ENRESERV 16:57 → EDBEDREQ 04-05 19:40 → EDBEDREQSVC 04-05 19:42 → EDBEDREQ 04-05 19:42 → ENRESERV 04-05 19:58 → C.4E 04-05 20:40
PROVIDERS: ADMIT Internal Medicine; ATTEND Family Medicine
DX: D70.1 Agranulocytosis secondary to cancer chemotherapy (principal); N39.0 Urinary tract infection, site not specified; C56.9 Malignant neoplasm of unspecified ovary; I23.6 Thrombosis of atrium, auricular appendage, and ventricle as current complications following acute myocardial infarction; Z68.1 Body mass index [BMI] 19.9 or less, adult; R64 Cachexia; R50.81 Fever presenting with conditions classified elsewhere; B95.2 Enterococcus as the cause of diseases classified elsewhere; R11.2 Nausea with vomiting, unspecified; E87.6 Hypokalemia; R00.0 Tachycardia, unspecified; Z79.899 Other long term (current) drug therapy; Z95.9 Presence of cardiac and vascular implant and graft, unspecified; Z93.3 Colostomy status